=== PATIENT | female | born 1955 | race Caucasian/White ===

== ENCOUNTER 2024-09-21 07:52 | Outpatient (AMB) | payer BC, SELFPAY ==
--- NOTE | 2024-09-21 07:54 | MHC.OFFVIS ---
Vital Signs 09/21/24 07:55 Height 5 ft 2 in Weight 220 lb BMI 40.2 BP 130/72 Intake Visit Reasons: PMB Nitrate Operator Required: No Information Interpreted: non-clinical & clinical Template Reproduction Technician: Template Reproduction Technician Present (Regina RODRIGUEZ) Accompanied by: Self / Same As Patient Allergies morphine Allergy (Intermediate, Verified 09/21/24 07:57) Dizziness Post menopausal: Yes HPI Comments Details: Presenting complaining of multiple episodes of vaginal bleeding lasting 1 week each since 2020, timing after cortisone shot for bursitis of her left hip, no other associated symptoms Last co testing was many years ago [facility] Medical History Pinched nerve in neck Kidney stone Hyperlipidemia Bursitis HTN (hypertension) Surgical History Hx of eye surgery History of back surgery Total knee replacement status Hx of section Family History Mother HTN (hypertension) Breast cancer Maternal Grandmother Diabetes Social History Household Members: Spouse Housing: House Alcohol intake: never Patient Tobacco Use Status: Never used Tobacco Current occupational status: employed 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 Sexual orientation: Straight/Heterosexual Gender identity: Female Female Reproductive History Menstrual Menopause type: natural Total pregnancies: 4 Full term: 3 Number of Living Children: 3 Review of Systems Const All systems reviewed & are unremarkable except as noted in HPI and below Physical Exam Vital Signs: Last Vital Signs BP 130/72 09/21/24 07:55 BMI result Body Mass Index 40.2 General: Yes no CVA tenderness External Female Exam: normal external appearance and normal appearance of the urethra Speculum Exam - Vagina: normal appearance of the vagina, normal palpation, no lesions and no masses Speculum Exam - Cervix: normal appearance of the cervix, normal palpation, no lesions, no masses and nontender Bimanual exam- vagina & uterus: normal bimanual exam, normal palpation, uterine size normal, normal palpation, uterine shape normal, No Cervical tenderness present and non-tender Bimanual Exam- Adnexa, other: normal adnexae Back/Spine/Pelvis Back: no CVA tenderness Assessment & Plan Assessment & Plan (1) Postmenopausal bleeding: Code(s): N95.0 - Postmenopausal bleeding Category: Medical Plan: Discussed with the patient the differential diagnosis of post menopausal bleeding with normal pelvic exam including but not limited to, endometrial hyperplasia, cancer, polyps and other causes; co testing done, recommended ultrasound to measure the endometrial stripe; discussed with the patient that if the endometrial thickness is 4 mm or less the negative predictive value of endometrial pathology is 99%, otherwise If endometrial thickness is more than 4 mm will proceed with endometrial sampling versus hysteroscopy D&C polypectomy depending on the ultrasound findings. Instructed the patient to schedule an ultrasound with a follow-up appointment in 2 weeks. All questions answered, the patient verbalized understanding and agreed with the plan. This note was generated with a voice recognition program. Some errors may have been overlooked during the review of this note. Sometimes these errors may affect the content or meaning of a given sentence. Orders: Orders US pelvic and transvaginal Today N95.0 - Postmenopausal bleeding Coding Level of Care Code New Pt Level 3 (68491) Diagnoses Postmenopausal bleeding N95.0
[2024-09-21 07:55] VITALS: BP 130/72; BMI 40.2
--- OUTSIDE RECORDS SUMMARY | 2024-09-21 07:55 | XMS_ITS | Encounter Summary ---
[facility] Address [address] [place] [address] Care Team Providers Care Occ Therapy Asst Name Role Phone Jelani Riddle MD Primary Care Provider Unavail able Jason Vides MD Primary Care Provider [phone] Encounter Details Date Type Department Care Team Description 06/27/2016 Taping Machine Operator Report Medical Records [address] [place] [id number] Abstract, Provider Social History Tobacco Use Types Packs/Day Years Used Date Smoking Tobacco: Never Smokeless Tobacco: Never Alcohol Use Standard Drinks/Week Comments Yes 0 (1 standard drink = 0.6 oz pur e alcohol) 1-2 year/ mixed drink Sex Assigned at Date Recorded Not on file Job Start Date Occupation Industry Not on file Not on file Not on file documented as of this encounter Plan of Treatment Not on file documented as of this encounter Visit Diagnoses Not on filedocumented in this encounter Care Teams Occ Therapy Asst Relationship Specialty Start Date End Date Jelani Riddle MD PCP - General Internal Medicine 02/27/15 11/22/19 Jason Vides MD [address] [place] [address] [id number] PCP - General Internal Medicine 11/23/19 documented as of this encounter
--- OUTSIDE RECORDS SUMMARY | 2024-09-21 07:55 | XMS_ITS | Encounter Summary ---
[facility] Address [address] [place] [address] Care Team Providers Care Airport Operations Coordinator Name Role Phone Jason Vides MD Primary Care Provider [phone] Encounter Details Date Type Department Care Team Description 07/09/2020 Hospital Medical Records [address] [place] [address] Santino Donis Social History Tobacco Use Types Packs/Day Years [...] on filedocumented in this encounter Care Teams Airport Operations Coordinator Relationship Specialty Start Date End Date Jason Vides MD [address] [place] [address] PCP - General Internal Medicine 11/23/19 documented as of this encounter
--- OUTSIDE RECORDS SUMMARY | 2024-09-21 07:55 | XMS_ITS | Encounter Summary ---
Author [facility] Address [address] [place] [address] Care Team Providers Care Bioassayist Name Role Phone Jason Vides MD Primary Care Provider [phone] Encounter Details Date Type Department Care Team Description 01/24/2021 Pt. Non Urgent Medic al Question Adult Medicine [address] [id number] Munira Kennedy PA Social History Tobacco Use Types Packs/Day Years Used Date Smoking Tobacco: Never Smokeless Tobacco: Never Alcohol Use Standard Drinks/Week Comments Yes 0 (1 standard drink = 0.6 oz pur e alcohol) 1-2 year/ mixed drink Sex Assigned at Date Recorded Not on file Job Start Date Occupation Industry Not on file Not on file Not on file documented as of this encounter Miscellaneous Notes * Telephone Encounter - Sondra Boykin C.M.A. - 01/24/2021 1:31 PM EDTFrom: Adelaida Pearson Karen To: Vasu Figueroa Sent: 01/24/2021 12:06 PM EDT Subject: Prescription denied I need a prescription for Omeprazole refilled but was denied by the doctor's office is there any way this can be refilled over to [facility] my recent appointment for January 17 was canceled by Munira but I do need these refilled I have not been ableto reach the appointment kristi lagunas but will attempt to do one through this website please get back to me with information on the prescription thank you documented in this encounter Plan of Treatment Not on file documented as of this encounter Visit Diagnoses Not on filedocumented in this encounter Care Teams Bioassayist Relationship Specialty Start Date End Date Jason Vides MD [address] [place] [id number] PCP - General Internal Medicine 11/23/19 documented as of this encounter
--- OUTSIDE RECORDS SUMMARY | 2024-09-21 07:55 | XMS_ITS | Encounter Summary ---
Author Organization [facility] Address [address] [place] [address] Care Team Providers Care Blast Furnace Auxiliaries Supervisor Name Role Phone Jason Vides MD Primary Care Provider [phone] Encounter Details Date Type Department Care Team Description 01/10/2020 Pt. Non Urgent Medical Question Adult Medicine [address] [id number] Munira Kennedy PA Controlled type 2 diabetes mellitus without complication, without long-term current use of insulin (HCC) (Primary Dx); Mixed hyperlipidemia Social History Tobacco Use Types Packs/Day Years [...] encounter Miscellaneous Notes * Telephone Encounter - Heather Yu M.A. - 01/10/2020 5:12 PM EDTFrom: Adelaida Jones To: Munira Figueroa PA-C Sent: 01/10/2020 4:55 PM EDT Subject: Response to lab tests Phi Lombardo, the best phone number to reach me is my cell [phone]. 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 You could leave a message or call meafter 4:30 Thursday to Thursday, weekends anytime documented in this encounter Plan of Treatment Not on file documented as of this encounter Results * MICROALBUMIN/CREATININE, URINE (07/31/2020 10:58 AM EDT) Pathologist [facility] CREATININE, RANDOM URINE 201 mg/dL 07/31/2020 4:01 PM EDT [facility] MICROALBUMIN, RANDOM 13.4 0.0 - 29.0 mg/L 07/31/2020 4:07 PM EDT [facility] MICROALB/CRE RATIO RANDOM 6.6 0.0 - 30.0 mg/G 07/31/2020 4:07 PM EDT [facility] 07/31/2020 10:5 8 AM EDT 07/31/2020 10:59 AM EDT [facility] Performing Organization Address [facility]/ZIP Co de Phone Number [facility] [employer] * (ABNORMAL) HEMOGLOBIN A1C (07/31/2020 9:38 AM EDT) Pathologist [facility] GLYCATED HEMOGLOBIN A1C 6.9(H) <6.5 % 07/31/2020 6:10 PM EDT [facility] ESTIMATED AVERAGE GLUCOSE 151 mg/dL 07/31/2020 6:10 PM EDT [facility] 07/31/2020 9:38 AM EDT 07/31/2020 9:40 AM EDT Munira [facility] Performing Organization Address City/[facility]/ZIP Co de Phone Number [facility] * TRANSAMINASE (SGPT)(ALT) UV- (07/31/2020 9:38 AM EDT) Pathologist [facility] SGPT 19 10 - 60 U/L 07/31/2020 1:49 PM EDT [facility] 07/31/2020 9:38 AM EDT 07/31/2020 9:40 AM EDT Munira [facility] Performing Organization Address [facility]/ZIP Co de Phone Number [facility] * TRANSAMINASE (SGOT)(AST) UV- (07/31/2020 9:38 AM EDT) SGOT 17 10 - 42 U/L 07/31/2020 1:49 PM EDT [facility] 07/31/2020 9:38 AM EDT 07/31/2020 9:40 AM EDT [facility] * LIPID PROFILE (07/31/2020 9:38 AM EDT) Cholesterol 141 0 - 200 mg/dL 07/31/2020 1:49 PM EDT [facility] TRIGLYCERIDES 131 0 - 150 mg/dL 07/31/2020 1:49 PM EDT [facility] HDL CHOLESTEROL 45 >40 mg/dL 1:50 PM EDT [facility] LDL CALCULATED 70 0 - 100 mg/dL 07/31/2020 1:50 PM EDT [facility] TC-HDLC RATIO 3.1 0 - 4.4 mg/dL 07/31/2020 1:50 PM EDT [facility] 07/31/2020 9:38 AM EDT 07/31/2020 9:40 AM EDT [facility] documented in this encounter Visit Diagnoses Diagnosis Controlled type 2 diabetes mellitus without complication, without long-term current use of insulin (HCC)- Primary Mixed hyperlipidemia documented in this encounter Care Teams Blast Furnace Auxiliaries Supervisor Relationship Specialty Start Date End Date Jason Vides MD [address] [place] [id number] PCP - General Internal Medicine 11/23/19 documented as of this encounter
--- OUTSIDE RECORDS SUMMARY | 2024-09-21 07:55 | XMS_ITS | Encounter Summary ---
[facility] Address [address] [place] [address] Care Team Providers Care Manager Privacy Name Role Phone Jason Vides MD Primary Care Provider [phone] Reason for Visit * Reason Onset Date Comments BLOOD PRESSURE-SELF MEASURED 11/26/2021 [place] dings to Provider Encounter Details Date Type Department Care Team Description 11/26/2021 Pt. Non Urgent Medic al Question Adult Medicine [address] [address] Munira Kennedy PA Social History Tobacco Use [...] on file documented as of this encounter Progress Notes * Jackie Pitts M.A. - 11/27/2021 7:27 AM EDT Please see Visual[employer] message with BP Readings, thank you. documented in this encounter Miscellaneous Notes * Telephone Encounter - Jackie Pitts M.A. - 11/27/2021 7:26 AM EDTFrom: Adelaida Michel Karen To: Vasu Figueroa Sent: 11/26/2021 8:47 PM EDT Subject: Blood pressure readings In my last visit you cut my hydrochloride daily pill in half and asked me to record blood pressure readings. Just did 5 in a row. On 11/21/21. 153/78. On 11/22, 158/78. On 11/23, 176/83. On 11/24, 146/75. on 11/25, 161/75. And today 167/74. These seem high. documented in this encounter Plan of Treatment Not on file documented as of this encounter Visit Diagnoses Not on filedocumented in this encounter Care Teams Manager Privacy Relationship Specialty Start Date End Date Jason Vides MD [address] [place] [address] PCP - General Internal Medicine 11/23/19 documented as of this encounter
--- OUTSIDE RECORDS SUMMARY | 2024-09-21 07:55 | XMS_ITS | Encounter Summary ---
[facility] Address [address] [place] [address] Care Team Providers Care Professor Of Industrial Technology Name Role Phone Matthew Pineda MD Primary Care Provider Augusto Ruiz MD Primary Care Provider Unavail able Jelani Riddle MD Primary Care Provider Unavail able Jason Vides MD Primary Care Provider [phone] Encounter Details Date Type Department Care Team Description 02/14/2014 Release of Information Medical Records [address] [place] [id number] Abstract, Provider Social History Tobacco Use Types [...] on filedocumented in this encounter Care Teams Professor Of Industrial Technology Relationship Specialty Start Date End Date Matthew Pineda MD PCP - General Internal Medicine 04/23/11 Augusto Osorio MD PCP - General Internal Medicine 07/06/14 02/26/15 Jelani Riddle MD PCP - General Internal Medicine 02/27/15 11/22/19 Jason Vides MD [address] [place] [address] [phone] PCP - General Internal Medicine 11/23/19 documented as of this encounter
--- OUTSIDE RECORDS SUMMARY | 2024-09-21 07:55 | XMS_ITS | Encounter Summary ---
Author Organization [facility] Address [address] [place] [address] Care Team Providers Care Oil Well Driller Name Role Phone Jelani Riddle MD Primary Care Provider Unavail able Jason Vides MD Primary Care Provider [phone] Encounter Details Date Type Department Care Team Description 11/25/2018 Hospital Medical Records [address] [place] [id number] Joao Herrera Social History Tobacco Use Types Packs/Day Years [...] on filedocumented in this encounter Care Teams Oil Well Driller Relationship Specialty Start Date End Date Jelani Riddle MD PCP - General Internal Medicine 02/27/15 11/22/19 Jason Vides MD [address] [place] [address] [id number] PCP - General Internal Medicine 11/23/19 documented as of this encounter
--- OUTSIDE RECORDS SUMMARY | 2024-09-21 07:55 | XMS_ITS | Encounter Summary ---
[facility] Address [address] [place] [address] Care Team Providers Care Industrial Health And Safety Professor Name Role Phone Augusto Osorio MD Primary Care Provider Unavail Jelani Basilio MD Primary Care Provider Unavail able Jason Vides MD Primary Care Provider [phone] Encounter Details Date Type Department Care Team Description 10/24/2014 [place] Report Medical Records [address] [place] [address] [facility] Social History Tobacco Use Types Packs/Day Years [...] on filedocumented in this encounter Care Teams Industrial Health And Safety Professor Relationship Specialty Start Date End Date Augusto Osorio MD PCP - General Internal Medicine 07/06/14 02/26/15 Jelani Riddle MD PCP - General Internal Medicine 02/27/15 11/22/19 Jason Vides MD [address] [place] [address] PCP - General Internal Medicine 11/23/19 documented as of this encounter
--- OUTSIDE RECORDS SUMMARY | 2024-09-21 07:55 | XMS_ITS | Encounter Summary ---
[facility] Address [address] [place] [address] Care Team Providers Care Manager General Name Role Phone Jason Vides MD Primary Care Provider [phone] Encounter Details Date Type Department Care Team Description 06/27/2021 Telephone Gastroenterology - [place] [address] [facility] [address] [place] [address] Richar Giron MD [address] [place] [address] [phone] Social History Tobacco Use Types Packs/Day Years Used Date Smoking Tobacco: Never Smokeless Tobacco: Never Alcohol Use Standard Drinks/Week Comments Yes 0 (1 standard drink = 0.6 oz pur e alcohol) 1-2 year/ mixed drink Sex Assigned at Date Recorded Not on file Job Start Date Occupation Industry Not on file Not on file Not on file COVID-19 Exposure Response Date Recorded In the last month, have you been in contact with someone who was confirmed or suspected to have Coronavirus / COVID-19? No / Unsure 06/26/2021 9:56 AM EST documented as of this encounter Miscellaneous Notes * Telephone Encounter - Yo Doe - 06/27/2021 2:02 PM EST Pre-auth needed Patient is scheduled for an Colonoscopy on 10/18/21 Diagnosis HX of Polyps Patients [place]: [place] Appointment is with Marquise Giron MD Code to process pre-auth for: [id number] Location of procedure: [facility] documented in this encounter Plan of Treatment Not on file documented as of this encounter Visit Diagnoses Not on filedocumented in this encounter Care Teams Manager General Relationship Specialty Start Date End Date Jason Vides MD [address] [place] [phone] PCP - General Internal Medicine 11/23/19 documented as of this encounter
--- OUTSIDE RECORDS SUMMARY | 2024-09-21 07:55 | XMS_ITS | Encounter Summary ---
[facility] Address [address] [place] [address] Care Team Providers Care Marketing Communications Associate Name Role Phone Jelani Riddle MD Primary Care Provider Unavail able Jason Vides MD Primary Care Provider [phone] Encounter Details Date Type Department Care Team Description 07/21/2018 Blend Plant Operator Report Medical Records [address] [place] [address] [facility] Social History Tobacco Use Types Packs/Day Years [...] on filedocumented in this encounter Care Teams Marketing Communications Associate Relationship Specialty Start Date End Date Jelani Riddle MD PCP - General Internal Medicine 02/27/15 11/22/19 Jason Vides MD [address] [place] [address] [phone] PCP - General Internal Medicine 11/23/19 documented as of this encounter
--- OUTSIDE RECORDS SUMMARY | 2024-09-21 07:55 | XMS_ITS | Encounter Summary ---
[facility] Address [address] [place] [address] Care Team Providers Care Laser Beam Trim Operator Name Role Phone Yung Spaulding MD Primary Care Provider [phone] Matthew Devine MD Primary Care Provider Christina Augusto Baptiste MD Primary Care Provider Unavail Jelani Basilio MD Primary Care Provider Unavail Jason Skinner MD Primary Care Provider [phone] Reason for Visit * Reason Comments E-prescribe Rx Request Encounter Details Date Type Department Care Team Description 04/20/2011 Refill Adult Medicine [address] [id number] Yung Spaulding MD [address] [place] [address] [phone] E-prescribe Rx Request Social History Tobacco Use Types Packs/Day Years Used Date Smoking Tobacco: Never Alcohol Use Standard Drinks/Week Comments No 0 (1 standard drink = 0.6 oz pur e alcohol) Sex Assigned at Date Recorded Not on file Job Start Date Occupation Industry Not on file Not on file Not on file documented as of this encounter Miscellaneous Notes * Telephone Encounter - Naomi Thakur R.N. - 04/25/2011 12:49 PM EST Several calls to pt with no response, encounter closed with no pt contact. * Telephone Encounter - Floresita May - 04/23/2011 2:31 PM EST PT HAS APPT ON 07/16/[address] DEVINE. * Telephone Encounter - Sil Jang M.A. - 04/23/2011 8:58 AM EST Please triage for antibiotics * Telephone Encounter - Shiela Goodman - 04/22/2011 11:18 AM EST Message left for patient to call the office. * Telephone Encounter - Sil Jang M.A. - 04/21/2011 3:27 PM EST Component Value Date NA 138 06/08/2010 K 3.9 06/08/2010 CO2 26.8 06/08/2010 CL 103 06/08/2010 BUN 13 06/08/2010 CREAT 0.8 06/08/2010 GLU 93 06/08/2010 CA 8.7 06/08/2010 GFR > 60 06/08/2010 PATIENT NEEDS A NEW PCP ?? * Telephone Encounter - Sundeep Roque - 04/20/2011 4:03 PM EST WHEN WAS THE PATIENT'S LAST APPOINTMENT IN ADULT MEDICINE? 10/23/10 WHEN WAS THE LAST TIME THE PATIENT SAW THEIR PCP? 04/05/10 Does patient have an upcoming appointment? No-unable to reach left voicemaill to call for appointment due to refill request. Appt due msg left to call and book an appointment and to select a new pcp (THE MEDICATION REQUESTED IS ON THE MED LIST ABOVE) All of the medications requested were on the CURRENT MEDS list Did you check the Pharmacy information above?: YES Is this a mail order prescription request? NO Indicate how soon the patient needs the script: OK FOR NEXT DAY Patient would like script to be: FAXED TO PHARMACY Is the doctor here today?: NO Can the message wait until the doctor returns?: YES Patients current insurance carrier is: [place]or: [place] POS Plan: FEP BASIC $25/$35 [place] Product Type: PPO [id number] documented in this encounter Plan of Treatment Not on file documented as of this encounter Visit Diagnoses Not on filedocumented in this encounter Care Teams Laser Beam Trim Operator Relationship Specialty Start Date End Date Yung Spaulding MD [address] [place] [address] PCP - General 04/17/1991 04/22/11 Matthew Devine MD [address] [place] [address] PCP - General Internal Medicine 04/23/11 05/17/14 Augusto Osorio MD [address] [place] [address] PCP - General Internal Medicine 07/06/14 02/26/15 Jelani Riddle MD [address] [place] [address] PCP - General Internal Medicine 02/27/15 11/22/19 Jason Vides MD [address] [place] [address] PCP - General Internal Medicine 11/23/19 documented as of this encounter
--- OUTSIDE RECORDS SUMMARY | 2024-09-21 07:55 | XMS_ITS | Encounter Summary ---
Author [facility] Address [address] [place] [address] Care Team Providers Care Sugar Cane Planter Machine Operator Name Role Phone Jelani Riddle MD Primary Care Provider Unavail able Jason Vides MD Primary Care Provider [phone] Encounter Details Date Type Department Care Team Description 01/14/2019 Hospital Medical Records [address] [place] [address] Joao Herrera Social History Tobacco Use Types [...] on filedocumented in this encounter Care Teams Sugar Cane Planter Machine Operator Relationship Specialty Start Date End Date Jelani Riddle MD PCP - General Internal Medicine 02/27/15 11/22/19 Jason Vides MD [address] [place] [address] [id number] PCP - General Internal Medicine 11/23/19 documented as of this encounter
--- OUTSIDE RECORDS SUMMARY | 2024-09-21 07:55 | XMS_ITS | Encounter Summary ---
Author Organization [facility] Address [address] [place] [address] Care Team Providers Care Nail Professional Name Role Phone Jason Vides MD Primary Care Provider [phone] Encounter Details Date Type Department Care Team Description 07/23/2022 Orders Only Adult Medicine [facility] [address] [place], [place] [phone] Claire Gomez PA-C [address] [place], [place] [phone] Essential hypertension, benign; Type 2 diabetes mellitus with stage 3a chronic kidney disease, without long-term current use of insulin (HCC) Social History Tobacco Use Types Packs/Day Years [...] on file documented as of this encounter Procedures Procedure Name Priority Date/Time Associated Diagnosis Comments MICROALBUMIN/CREATININE, URINE Routine 07/22/2022 Type 2 diabetes mellitus with stage 3a chronic kidney disease, without long-term current use of insulin (HCC) HEMOGLOBIN A1C Routine 07/22/2022 Type 2 diabetes mellitus with stage 3a chronic kidney disease, without long-term current use of insulin (HCC) CHG BLOOD COUNT COMPLETE AUTO&AUTO DIFRNTL WBC Routine 07/22/2022 Essential hypertension, benign CHG COMPREHENSIVE METABOLIC PANEL Routine 07/22/2022 Essential hypertension, benign documented in this encounter Results * MICROALBUMIN/CREATININE, URINE (07/22/2022) 07/22/2022 Claire SHIELDS-C LAB Performing Organization Address [facility]/ZIP Co de Phone Number Resolver * HEMOGLOBIN A1C (07/22/2022) 07/22/2022 Claire SHIELDS-[facility] LAB Performing Organization Address [facility] Co de Phone Number Resolver * COMPREHENSIVE METABOLIC PANEL (07/22/2022) 07/22/2022 Claire [facility] LAB Resolver * CBC (AUTO DIFF PLATELET) (07/22/2022) 07/22/2022 Claire [facility]EL[facility] LAB Performing Organization Address [facility] Co de Phone Number Resolver documented in this encounter Visit Diagnoses Diagnosis Essential hypertension, benign Type 2 diabetes mellitus with stage 3a chronic kidney disease, without long-term current use of insulin (HCC) documented in this encounter Care Teams Nail Professional Relationship Specialty Start Date End Date Jason Vides MD [address] [place] [id number] PCP - General Internal Medicine 11/23/19 documented as of this encounter
--- OUTSIDE RECORDS SUMMARY | 2024-09-21 07:55 | XMS_ITS | Encounter Summary ---
[facility] [address] [place] [address] Care Team Providers Care Director Experimental Medicine Name Role Phone Jelani Riddle MD Primary Care Provider Unavail able Jason Vidse MD Primary Care Provider [phone] Encounter Details Date Type Department Care Team Description 04/08/2016 Medical Coding Manager Report Medical Records [address] [place] [address] Jamie Shaikh Social History Tobacco Use Types Packs/Day Years [...] on filedocumented in this encounter Care Teams Director Experimental Medicine Relationship Specialty Start Date End Date Jelani Riddle MD PCP - General Internal Medicine 02/27/15 11/22/19 Jason Vides MD [address] [place] [address] [id number] PCP - General Internal Medicine 11/23/19 documented as of this encounter
--- OUTSIDE RECORDS SUMMARY | 2024-09-21 07:55 | XMS_ITS | Encounter Summary ---
[facility] [address] [place] [address] Care Team Providers Care Ammonia Technician Name Role Phone Jelani Riddle MD Primary Care Provider Unavail able Jason Vides MD Primary Care Provider [phone] Encounter Details Date Type Department Care Team Description 09/05/2016 Senior Java Software Engineer Report Medical Records [address] [place] [address] Dewayne Sandhu Social History Tobacco Use Types Packs/Day Years [...] on filedocumented in this encounter Care Teams Ammonia Technician Relationship Specialty Start Date End Date Jelani Riddle MD PCP - General Internal Medicine 02/27/15 11/22/19 Jason Vides MD [address] [place] [address] [id number] PCP - General Internal Medicine 11/23/19 documented as of this encounter
--- OUTSIDE RECORDS SUMMARY | 2024-09-21 07:55 | XMS_ITS | Encounter Summary ---
[facility] [address] [place] [address] Care Team Providers Care Dry Talc Racker Name Role Phone Jason Vides MD Primary Care Provider [phone] Reason for Visit * Reason Onset Date Comments Prior Authorization 09/05/2021 colonoscopy Encounter Details Date Type Department Care Team Description 09/05/2021 Telephone Adult Medicine [facility] [address] [place], [place] [phone] Richar Giron MD [address] [place] [address] [phone] Prior Authorization (colonoscopy) Social History Tobacco Use Types Packs/Day Years [...] encounter Miscellaneous Notes * Telephone Encounter - Lillie Nicholas - 09/05/2021 9:43 AM EDT [place] cross federal plan - no auth required * Telephone Encounter - Lillie Nicholas - 09/05/2021 9:19 AM EDT Images from the original note were not included. [facility] External Surgeon [place] Pre-Op Pool Pre-auth needed ? Patient is scheduled for an Colonoscopy on 10/18/21 ?? Diagnosis HX of Polyps ?? [place]: [place] ?? Appointment is with Marquise Giron MD ?? Code to process pre-auth for: [id number] ?? Location of procedure: [facility] documented in this encounter Plan of Treatment Not on file documented as of this encounter Visit Diagnoses Not on filedocumented in this encounter Care Teams Dry Talc Racker Relationship Specialty Start Date End Date Jason Vides MD [address] [place] [id number] PCP - General Internal Medicine 11/23/19 documented as of this encounter
--- OUTSIDE RECORDS SUMMARY | 2024-09-21 07:55 | XMS_ITS | Encounter Summary ---
Author [facility] Address [address] [place] [address] Care Team Providers Care Drawbench Operator Name Role Phone Jason Vides MD Primary Care Provider [phone] Encounter Details Date Type Department Care Team Description 05/25/2020 Refrigerating Engineer Head Report Medical Records [address] [place] [address] Santino Donis Social History Tobacco Use Types [...] on filedocumented in this encounter Care Teams Drawbench Operator Relationship Specialty Start Date End Date Jason Vides MD [address] [place] [address] PCP - General Internal Medicine 11/23/19 documented as of this encounter
== END 2024-09-21 08:46 | disposition home or self-care (01) ==
LOC: HO.HWS 07:53
PROVIDERS: Visit Provider Obstetrics & Gynecology
DX: N95.0 Postmenopausal bleeding (principal)
CPT/HCPCS: 99203

== ENCOUNTER 2024-09-21 07:52 | Outpatient (REF) | payer BC, SELFPAY ==
--- OUTSIDE RECORDS SUMMARY | 2024-09-21 10:30 | XMS_ITS | Encounter Summary ---
[facility] Address [address] [place] [address] Care Team Providers Care Dry Kiln Operator Helper Name Role Phone Jelani Riddle MD Primary Care Provider Unavail able Jason Vides MD Primary Care Provider [phone] Encounter Details Date Type Department Care Team Description 06/27/2016 Clinical Rehabilitation Specialist Report Medical Records [address] [place] [address] Abstract, Provider Social History Tobacco Use Types [...] filedocumented in this encounter Care Teams Dry Kiln Operator Helper Relationship Specialty Start Date End Date Jelani Riddle MD PCP - General Internal Medicine 02/27/15 11/22/19 Jason Vides MD [address] [place] [address] [phone] PCP - General Internal Medicine 11/23/19 documented as of this encounter
--- OUTSIDE RECORDS SUMMARY | 2024-09-21 10:30 | XMS_ITS | Encounter Summary ---
Author [facility] Address [address] [place] [address] Care Team Providers Care Revenue Accounting Manager Name Role Phone Yung Spaulding MD Primary Care Provider [phone] Matthew Devine MD Primary Care Provider Christina Augusto Baptiste MD Primary Care Provider Unavail Jelani Basilio MD Primary Care Provider Unavail Jason Skinner MD Primary Care Provider [phone] Reason for Visit * Reason Comments E-prescribe Rx Request Encounter Details Date Type Department Care Team Description 04/20/2011 Refill Adult Medicine [address] [phone] Yung Spaulding MD [address] [place] [address] [phone] E-prescribe Rx Request Social History Tobacco Use [...] FEP BASIC $25/$35 [place] Product Type: PPO [id number] documented in this encounter Plan of Treatment Not on file documented as of this encounter Visit Diagnoses Not on filedocumented in this encounter Care Teams Revenue Accounting Manager Relationship Specialty Start Date End Date Yung Spaulding MD [address] [place] [address] PCP - General 04/17/1991 04/22/11 Matthew Devine MD [address] [place] [address] PCP - General Internal Medicine 04/23/11 05/17/14 Augusto Osorio MD [address] [place] [address] PCP - General Internal Medicine 07/06/14 02/26/15 Jelani Riddle MD [address] [place] [address] PCP - General Internal Medicine 02/27/15 11/22/19 Jason Vides MD [address] [place] [address] PCP - General Internal Medicine 11/23/19 documented as of this encounter
--- OUTSIDE RECORDS SUMMARY | 2024-09-21 10:30 | XMS_ITS | Encounter Summary ---
[facility] Address [address] [place] [address] Care Team Providers Care Hr Director Name Role Phone Jelani Riddle MD Primary Care Provider Unavail able Jason Vides MD Primary Care Provider [phone] Encounter Details Date Type Department Care Team Description 04/08/2016 Production Administrative Assistant Report Medical Records [address] [place] [address] Jamie Shaikh Social History Tobacco Use Types [...] on filedocumented in this encounter Care Teams Hr Director Relationship Specialty Start Date End Date Jelani Riddle MD PCP - General Internal Medicine 02/27/15 11/22/19 Jason Vides MD [address] [place] [address] [id number] PCP - General Internal Medicine 11/23/19 documented as of this encounter
--- OUTSIDE RECORDS SUMMARY | 2024-09-21 10:30 | XMS_ITS | Encounter Summary ---
[facility] Address [address] [place] [address] Care Team Providers Care Carburetor Repairer Name Role Phone Jelani Riddle MD Primary Care Provider Unavail able Jason Vides MD Primary Care Provider [phone] Encounter Details Date Type Department Care Team Description 01/14/2019 Hospital Medical Records [address] [place] [address] Joao Herrera Social History Tobacco Use Types [...] on filedocumented in this encounter Care Teams Carburetor Repairer Relationship Specialty Start Date End Date Jelani Riddle MD PCP - General Internal Medicine 02/27/15 11/22/19 Jason Vides MD [address] [place] [address] [phone] PCP - General Internal Medicine 11/23/19 documented as of this encounter
--- OUTSIDE RECORDS SUMMARY | 2024-09-21 10:30 | XMS_ITS | Encounter Summary ---
[facility] Address [address] [place] [address] Care Team Providers Care Coupon Clerk Name Role Phone Jelani Riddle MD Primary Care Provider Unavail able Jason Vides MD Primary Care Provider [phone] Encounter Details Date Type Department Care Team Description 11/25/2018 Hospital Medical Records [address] [place] [address] Joao Herrera Social History Tobacco Use Types [...] on filedocumented in this encounter Care Teams Coupon Clerk Relationship Specialty Start Date End Date Jelani Riddle MD PCP - General Internal Medicine 02/27/15 11/22/19 Jason Vides MD [address] [place] [address] [phone] PCP - General Internal Medicine 11/23/19 documented as of this encounter
--- OUTSIDE RECORDS SUMMARY | 2024-09-21 10:30 | XMS_ITS | Encounter Summary ---
[facility] Address [address] [place] [address] Care Team Providers Care Mounter Saxophones Name Role Phone Jason Vides MD Primary Care Provider [phone] Encounter Details Date Type Department Care Team Description 05/08/2020 Upholstery Cleaner Report Medical Records [address] [place] [address] Tj Sawant PA-C [address] [place] [phone] Social History Tobacco Use Types Packs/Day Years [...] on filedocumented in this encounter Care Teams Mounter Saxophones Relationship Specialty Start Date End Date Jason Vides MD [address] [place], [place] [phone] PCP - General Internal Medicine 11/23/19 documented as of this encounter
--- OUTSIDE RECORDS SUMMARY | 2024-09-21 10:30 | XMS_ITS | Encounter Summary ---
Author Organization [facility] Address [address] [place] [address] Care Team Providers Care Disintegrator Name Role Phone Jason Vides MD Primary Care Provider [phone] Encounter Details Date Type Department Care Team Description 01/10/2020 Pt. Non Urgent Medical Question Adult Medicine [address] [phone] Munira Kennedy PA Controlled type 2 diabetes [...] number to reach me is my cell [phone]. 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 You could leave a message or call meafter 4:30 Thursday to Thursday, weekends anytime documented in this encounter Plan of Treatment Not on file documented as of this encounter Results * MICROALBUMIN/CREATININE, URINE (07/31/2020 10:58 AM EDT) Pathologist [facility] CREATININE, RANDOM URINE 201 mg/dL 07/31/2020 4:01 PM EDT [facility] MICROALBUMIN, RANDOM 13.4 0.0 - 29.0 mg/L 07/31/2020 4:07 PM EDT [facility] MICROALB/CRE RATIO RANDOM 6.6 0.0 - 30.0 mg/G 07/31/2020 4:07 PM EDT [facility] 07/31/2020 10:5 8 AM EDT 07/31/2020 10:59 AM EDT Munira [facility] Performing Organization Address [facility]/ZIP Co de Phone Number [facility] [employer] * (ABNORMAL) HEMOGLOBIN A1C (07/31/2020 9:38 AM EDT) Pathologist [facility] GLYCATED HEMOGLOBIN A1C 6.9(H) <6.5 % 07/31/2020 6:10 PM EDT [facility] ESTIMATED AVERAGE GLUCOSE 151 mg/dL 07/31/2020 6:10 PM EDT [facility] 07/31/2020 9:38 AM EDT 07/31/2020 9:40 AM EDT Munira [facility] Performing Organization Address City/[facility]/ZIP Co de Phone Number [email or web address] * TRANSAMINASE (SGPT)(ALT) UV- (07/31/2020 9:38 AM EDT) Pathologist [facility] SGPT 19 10 - 60 U/L 07/31/2020 1:49 PM EDT [facility] 07/31/2020 9:38 AM EDT 07/31/2020 9:40 AM EDT Munira [facility] Performing Organization Address City/[facility]/ZIP Co de Phone Number [email or web address] * TRANSAMINASE (SGOT)(AST) UV- (07/31/2020 9:38 AM [...] hyperlipidemia documented in this encounter Care Teams Disintegrator Relationship Specialty Start Date End Date Jason Vides MD [address] [place] [id number] PCP - General Internal Medicine 11/23/19 documented as of this encounter
--- OUTSIDE RECORDS SUMMARY | 2024-09-21 10:30 | XMS_ITS | Encounter Summary ---
Author Organization [facility] Address [address] [place] [address] Care Team Providers Care Foil Spinner Name Role Phone Jason Vides MD Primary Care Provider [phone] Encounter Details Date Type Department Care Team Description 10/22/2021 Orders Only Medical Records [address] [place] [address] Richar Giron MD [address] [place], [place] [phone] Social History Tobacco Use Types Packs/Day Years [...] Exposure Response Date Recorded In the last 10 days, have yo u been in contact with someone who was confirmed or suspected to have Coronavirus/COVID-19? No / Unsure 10/09/2021 9:48 AM EDT documented as of this encounter Progress Notes * Adrienne Giron MD - 10/28/2021 11:05 AM EDT Dear Adelaida,The polyp(s) that were removed during your colonoscopy were precancerous, but benign. Fortunately, we removed them and therefore, they will not cause any more problems in the future. Basedon the number, the size, and the features of the polyp(s) removed, I recommend a follow-up colonoscopy in 3 years. Before, the 3 years are due, we will send you a reminder in the mail asking you to contact our office to have the colonoscopy scheduled. I would like to personally thank you for allowing us to take care of you. Please don't hesitate to call us for any questions or concerns. Regards, Marquise Giron MD Board Certified Gastroenterology and Internal Medicine Transplant Hepatology [facility] documented in this encounter Plan of Treatment Not on file documented as of this encounter Procedures Procedure Name Priority Date/Time Associated Diagnosis Comments OUTSIDE PATHOLOGY Routine 10/18/2021 documented in this encounter Results * OUTSIDE PATHOLOGY (10/18/2021) Richar Giron MD OUTSIDE LAB documented in this encounter Visit Diagnoses Not on filedocumented in this encounter Care Teams Foil Spinner Relationship Specialty Start Date End Date Jason Vides MD [address] [place] [id number] PCP - General Internal Medicine 11/23/19 documented as of this encounter
--- OUTSIDE RECORDS SUMMARY | 2024-09-21 10:30 | XMS_ITS | Encounter Summary ---
[facility] Address [address] [place] [address] Care Team Providers Care Field Secretary Name Role Phone Matthew Pineda MD Primary Care Provider Augusto Ruiz MD Primary Care Provider Unavail able Jelani Riddle MD Primary Care Provider Unavail able Jason Vides MD Primary Care Provider [phone] Encounter Details Date Type Department Care Team Description 02/13/2014 [employer] Report Medical Records [address] [place] [address] Ayanna Cassidy Social History Tobacco Use Types Packs/Day Years [...] on filedocumented in this encounter Care Teams Field Secretary Relationship Specialty Start Date End Date Matthew Pineda MD PCP - General Internal Medicine 04/23/11 Augusto Osorio MD PCP - General Internal Medicine 07/06/14 02/26/15 Jelani Riddle MD PCP - General Internal Medicine 02/27/15 11/22/19 Jason Vides MD [address] [place] [address] [phone] PCP - General Internal Medicine 11/23/19 documented as of this encounter
--- OUTSIDE RECORDS SUMMARY | 2024-09-21 10:30 | XMS_ITS | Encounter Summary ---
[facility] Address [address] [place] [address] Care Team Providers Care Floor Tiling Professional Name Role Phone Jelani Riddle MD Primary Care Provider Unavail able Jason Vides MD Primary Care Provider [phone] Encounter Details Date Type Department Care Team Description 01/13/2019 Hospital Medical Records [address] [place] [address] Hannah Oliver Social History Tobacco Use Types Packs/Day Years [...] on filedocumented in this encounter Care Teams Floor Tiling Professional Relationship Specialty Start Date End Date Jelani Riddle MD PCP - General Internal Medicine 02/27/15 11/22/19 Jason Vides MD [address] [place] [address] [phone] PCP - General Internal Medicine 11/23/19 documented as of this encounter
--- OUTSIDE RECORDS SUMMARY | 2024-09-21 10:31 | XMS_ITS | Encounter Summary ---
[facility] Address [address] [place] [address] Care Team Providers Care Shoe Fitter Name Role Phone Jelani Riddle MD Primary Care Provider Unavail able Jason Vides MD Primary Care Provider [phone] Encounter Details Date Type Department Care Team Description 01/18/2016 Internal Controls Analyst Report Medical Records [address] [place] [address] Norma Montes Social History Tobacco Use Types Packs/Day Years [...] on filedocumented in this encounter Care Teams Shoe Fitter Relationship Specialty Start Date End Date Jelani Riddle MD PCP - General Internal Medicine 02/27/15 11/22/19 Jason Vides MD [address] [place] [address] [phone] PCP - General Internal Medicine 11/23/19 documented as of this encounter
--- OUTSIDE RECORDS SUMMARY | 2024-09-21 10:31 | XMS_ITS | Clinical Summary ---
Author Organization [facility] Address [address] [place] [address] Care Team Providers Care Vp Information Technology Name Role Phone Jason Vides MD Primary Care Provider [phone] Allergies Active Allergy Reactions Severity Noted Date Comments Morphine Itching/Pruritus,Abhi sea and Vomiting Medium 11/27/2016 Pt states that when she had c sections in 1988 and 1993 she received duramorhp. She then had vomiting and an itchy face Metoprolol Hives/Urticaria 02/04/2017 Medications Medication Sig Dispensed Refills Start Date End Date Status Blood Glucose Monitoring Suppl (FREESTYLE LITE) Device Test daily 1 Device 0 07/17/2020 Active Glucose Blood (FREESTYLE LITE) Strip Test daily 100 Strip 0 07/17/2020 Active FreeStyle Lancets Misc Test daily 100 Each 0 07/17/2020 Active ALBUTEROL SULFATE (ProAir HFA) 108 (90 Base) MCG/ACT Aero Soln Inhale 2 Puffs into the lungs 4 times daily as needed for Cough or Wheezing. 1 Inhaler 0 08/30/2020 Active potassium chloride SA (K-DUR,KLOR-CON) 20 MEQ tablet Take 1 Tablet by mouth daily for 180 days. 30 Tablet 5 03/03/2023 Active atenolol (TENORMIN) 25 MG tablet Take 1 Tablet by mouth daily. 90 Tablet 1 09/15/2023 Active atorvastatin (LIPITOR) 20 MG tablet Take 1 Tablet by mouth at bedtime. 90 Tablet 1 09/15/2023 Active omeprazole (PRILOSEC) 20 MG capsule Take 1 Capsule by mouth daily. 90 Capsule 1 09/15/2023 Active lisinopril (PRINIVIL,ZESTRIL) 5 MG tablet Take 1 Tablet by mouth daily. 90 Tablet 1 10/15/2023 Active nystatin (MYCOSTATIN) powder Apply to affected skin as needed. 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 01/09/2020 Morbid obesity with BMI of 40.0-44.9, ad ult 10/30/2016 Asthma in adult 05/03/2015 Hyperlipidemia 05/02/2015 Osteoarthritis of both knees 05/02/2015 Overview: Cortisol injections at [facility] Calculus of kidney 06/09/2010 Overview: Abnormal cytology Colon polyps 10/13/2008 Overview: 10/13/08: 2-cm tubulovillous adenoma 10/24/11: Negative CN 11/27/16: 1 inflammatory polyp 10/18/21: 3 tubular adenomas - repeat CN in 3 years Essential hypertension, benign 6 Resolved Problems Problem Noted Date Resolved Date History of COVID-19 06/26/2021 03/06/2022 Overview: DX: 07/2020 Obese 10/23/2010 03/06/2022 Recurrent Streptococcal pharyngitis 08/30/2010 06/24/2019 Overview: 07/06/10, 07/24/10, 08/15/10 Immunizations Name Administration Dates Next Due COVID-19 (Pfizer) 05/04/2021,09/06/2020,08/17/19 21 Influenza (> 6 Months) 03/04/2020,02/22/2016,07/2009 Influenza Flu (PT Reported) 02/24/2018 Influenza Vaccine-preservati ve Free-quadrivalent 4 Years 03/06/2022,06/26/2021,05/29/2019 Influenza vaccine high dose age 65 and over 02/15 Pneumoccoccal(Adult) Polysaccharide PPSV23 06/04 Tdap 01/03/2020,08/29/2009 Family History Medical History Relation Name Comments CABG Father Hypertension Father CA Breast Mother Cancer of the Breast Mother dx [address] ca 63, also at 63 Macular Degeneration Mother CA Colon Negative Hx CA Ovarian Negative Hx Uterine Cancer Negative Hx Relation Name Status Comments Father (Age 71) cad, htn, hyperlipidemia Mother (Age 63) breast can cer Social History Tobacco Use Types Packs/Day Years Used Date Smoking Tobacco: Never Smokeless Tobacco: Never Tobacco Cessation:Counseling Given: Not Answered Alcohol Use Standard Drinks/Week Comments Yes 0 (1 standard drink = 0.6 oz pur e alcohol) 1-2 year/ mixed drink Sex Assigned at Date Recorded Not on file Job Start Date Occupation Industry Not on file Not on file Not on file Last Filed Vital Signs Vital Sign Reading Time Taken Comments Blood Pressure 126/68 11/18/2023 5:22 PM EDT Pulse 82 10/15/2023 2:48 PM EDT Temperature 36.7 ??C (98 ??F) 10/15/2023 2:48 PM EDT Respiratory Rate 16 09/15/2023 12:5 8 PM EDT Oxygen Saturation 98% 11/27/2016 10: 25 AM EDT Inhaled Oxygen Concentration - - Weight 102.4 kg (225 lb 11.2 oz) 10/15/2023 2:48 PM EDT Height 157.5 cm (5' 2 ) 10/15/2023 2:48 PM EDT Body Mass Index 41.28 10/15/2023 2:48 PM EDT Plan of Treatment Health Maintenance Due Date Last Done Comments SHINGLES VACCINE (1 of 2) 2007 DIABETES: ANNUAL EYE EXAM 12/06/20102009, 11/15/2008, 11/09/2007 BONE DENSITY SCREENING 2022 PNEUMOCOCCAL VACCINE (2 - PCV) 2022 06/04/2018 DIABETES: ANNUAL FOOT EXAM 06/26/2022 06/26/2021 DIABETES: BLOOD SUGAR CONTRO L TEST (HGBA1C) 12/15/2023 09/15/2023, 03/02/2023, 07/22/2022, Additional history exists Covid-19 Vaccine (2022-06 4 season) 2024 05/04/2021, 09/06/2020, 08/16/2020 BMI CHECK/ADVISE 05/18/2024 08/04/2022, , 10/09/2021, Additional history exists DIABETES/HEART DISEASE: LAMAR MCFADDEN CHOLESTEROL (LDL) 09/14/2024 09/15/2023, 03/02/2023, 06/26/2021, Additional history exists DIABETES: ANNUAL URINE PROTE IN TEST (MICROALBUMIN) 09/14/2024 09/15/2023, 03/02/2023, 07/22/2022, Additional history exists COLON CANCER SCREENING 10/18/2024 , 11/27/2016, 10/24/2011, Additional history exists INFLUENZA (Season Ended) 2025 023, 03/06/2022, 06/26/2021, Additional history exists MAMMOGRAM 02/12/2025 02/13/2024, 12/17, 01/24/2022, Additional history exists DTAP/TDAP/TD (3 - Td or Tdap) 01/02/2030 01/03/2020, 08/29/2009 HEPATITIS C SCREENING Completed 09/15/2023 , 05/03/2015 (Refused) [address] [facility] [address] Adelaida Jones [employer] Self 1955 [address] [place] [address] Care Teams Vp Information Technology Relationship Specialty Start Date End Date Jason Vides MD [address] [place] [address] PCP - General Internal Medicine 11/23/19
--- OUTSIDE RECORDS SUMMARY | 2024-09-21 10:31 | XMS_ITS | Encounter Summary ---
Author Organization [facility] Address [address] [place] [address] Care Team Providers Care Hand Sole Sewer Name Role Phone Jason Vides MD Primary Care Provider Encounter Details Date Type Department Care Team Description 06/27/2021 Telephone Gastroenterology - [place] [address] [facility] [address] [place] [address] Richar Giron MD [address] [place] [address] [id number] Social History Tobacco Use Types Packs/Day Years [...] Giron MD Code to process pre-auth for: [id number] Location of procedure: [facility] documented in this encounter Plan of Treatment Not on file documented as of this encounter Visit Diagnoses Not on filedocumented in this encounter Care Teams Hand Sole Sewer Relationship Specialty Start Date End Date Jason Vides MD [address] [place] [id number] PCP - General Internal Medicine 11/23/19 documented as of this encounter
--- OUTSIDE RECORDS SUMMARY | 2024-09-21 10:31 | XMS_ITS | Encounter Summary ---
[facility] Address [address] [place] [address] Care Team Providers Care Reeler Operator Name Role Phone Jason Vides MD Primary Care Provider [phone] Encounter Details Date Type Department Care Team Description 01/24/2021 Pt. Non Urgent Medic al Question Adult Medicine [address] [phone] Munira Kennedy PA Social History Tobacco Use [...] way this can be refilled [facility] in [facility] my recent appointment for January 17 was [...] on filedocumented in this encounter Care Teams Reeler Operator Relationship Specialty Start Date End Date Jason Vides MD [address] [place] [id number] PCP - General Internal Medicine 11/23/19 documented as of this encounter
--- OUTSIDE RECORDS SUMMARY | 2024-09-21 10:31 | XMS_ITS | Encounter Summary ---
[facility] Address [address] [place] [address] Care Team Providers Care Dough Molder Name Role Phone Jelani Riddle MD Primary Care Provider Unavail able Jason Vides MD Primary Care Provider [phone] Encounter Details Date Type Department Care Team Description 10/10/2015 Release of Information Medical Records [address] [place] [id number] Abstract, Provider Social History Tobacco Use Types [...] on filedocumented in this encounter Care Teams Dough Molder Relationship Specialty Start Date End Date Jelani Riddle MD PCP - General Internal Medicine 02/27/15 11/22/19 Jason Vides MD [address] [place] [address] [phone] PCP - General Internal Medicine 11/23/19 documented as of this encounter
--- OUTSIDE RECORDS SUMMARY | 2024-09-21 10:31 | XMS_ITS | Encounter Summary ---
[facility] Address [address] [place] [address] Care Team Providers Care City Sanitarian Name Role Phone Jelani Riddle MD Primary Care Provider Unavail able Jason Vides MD Primary Care Provider [phone] Encounter Details Date Type Department Care Team Description 02/28/2016 [facility] Fisher Report Medical Records [address] [place] [id number] Jamie Shaikh Social History Tobacco Use Types [...] on filedocumented in this encounter Care Teams City Sanitarian Relationship Specialty Start Date End Date Jelani Riddle MD PCP - General Internal Medicine 02/27/15 11/22/19 Jason Vides MD [address] [place] [address] [phone] PCP - General Internal Medicine 11/23/19 documented as of this encounter
--- OUTSIDE RECORDS SUMMARY | 2024-09-21 10:31 | XMS_ITS | Encounter Summary ---
Author Organization [facility] Address [address] [place] [address] Care Team Providers Care Greek Professor Name Role Phone Jason Vides MD Primary Care Provider [phone] Encounter Details Date Type Department Care Team Description 07/23/2022 Orders Only Adult Medicine [facility] [address] [place], [place] [phone] Claire Gomez PA-C [address] [place], [place] [phone] Essential hypertension, benign; Type 2 diabetes mellitus [...] 07/22/2022 Claire SHIELDS-C LAB Performing Organization Address [facility]/ZIP Co de Phone Number Panna * HEMOGLOBIN A1C (07/22/2022) 07/22/2022 Claire SHIELDS-C LAB Performing Organization Address [facility] Co de Phone Number Panna * COMPREHENSIVE METABOLIC PANEL (07/22/2022) 07/22/2022 Claire SHIELDS-C LAB Panna * CBC (AUTO DIFF PLATELET) (07/22/2022) 07/22/2022 Claire SHIELDS-C LAB Performing Organization Address [facility] Co de Phone Number Panna documented in this encounter Visit Diagnoses Diagnosis Essential hypertension, benign Type 2 diabetes mellitus with stage 3a chronic kidney disease, without long-term current use of insulin (HCC) documented in this encounter Care Teams Greek Professor Relationship Specialty Start Date End Date Jason Vides MD [address] [place] [phone] PCP - General Internal Medicine 11/23/19 documented as of this encounter
--- OUTSIDE RECORDS SUMMARY | 2024-09-21 10:31 | XMS_ITS | Encounter Summary ---
[facility] Address [address] [place] [address] Care Team Providers Care Galley Cook Name Role Phone Jason Vides MD Primary Care Provider [phone] Reason for Visit * Reason Onset Date Comments BLOOD PRESSURE-SELF MEASURED 11/26/2021 [place] dings to Provider Encounter Details Date Type Department Care Team Description 11/26/2021 Pt. Non Urgent Medic al Question Adult Medicine [address] [address] Munira Kennedy PA Social History Tobacco Use [...] - 11/27/2021 7:27 AM EDT Please see [employer] message with [employer], thank you. documented [...] on filedocumented in this encounter Care Teams Galley Cook Relationship Specialty Start Date End Date Jason Vides MD [address] [place] [phone] PCP - General Internal Medicine 11/23/19 documented as of this encounter
[2024-09-28 09:20] LABS: HPV Genotype 16 Negative (Negative); HPV Genotype 18 Negative (Negative); HPV High Risk Negative (Negative)
== END 2024-09-21 07:53 | disposition home or self-care (01) ==
LOC: HO.LNP 07:52
PROVIDERS: Visit Provider Obstetrics & Gynecology
DX: Z01.419 Encounter for gynecological examination (general) (routine) without abnormal findings (principal); N95.0 Postmenopausal bleeding
CPT/HCPCS: 87626; 88175

== ENCOUNTER 2024-09-21 14:35 | Outpatient (REF) | payer BC, SELFPAY ==
--- NOTE | ~2024-09-21 | US_ITS ---
CLINICAL HISTORY: N95.0 - Postmenopausal bleeding US pelvis transabdominal and transvaginal with Doppler Comparison: None Findings: Transabdominal scanning performed for overall anatomy. Transvaginal scanning performed for additional detail. Uterus is 9.1 cm length. Uterine fibroids: 2 x 2.1 x 2.3 cm, 3.3 x 3.8 x 3 cm, 0.9 x 0.9 x 1 cm, 2.6 x 2.5 x 2.7 cm No endometrial lesion, 6.0 mm thickness. Right ovary is not seen. Possible Left ovary 1.8 x 1.3 x 1.9 cm. Normal color Doppler with arterial/venous spectral tracing of possible left ovary. No free fluid. IMPRESSION: Mild thickening of the endometrium. Uterine fibroids. This document has been electronically signed by: Mckinley Echols MD on 09/21/2024 16:42:54
--- OUTSIDE RECORDS SUMMARY | 2024-09-21 15:45 | XMS_ITS | Clinical Summary ---
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 She then had vomiting and an itchy face Medications albuterol HFA (PROAIR HFA ; PROVENTIL HFA ; VENTOLIN HFA) 90 mcg/actuation inhaler Inhale 2 Puffs into the lungs 4 times daily as needed for Cough or Wheezing. 08/30/2020 Active blood-glucose meter kit Test daily 07/17/2020 Active FREESTYLE LANCETS MISC Test daily 07/17/2020 Activ e atenoloL (TENORMIN) 25 mg tablet TAKE 1 TABLET BY MOUTH DAILY 90 tablet 1 05/17/2024 Active omeprazole (PriLOSEC) [address] capsule TAKE 1 CAPSULE BY MOUTH DAILY 90 capsule 1 05/17/2024 Active lisinopriL (PRINIVIL,ZESTR IL) 5 mg tablet TAKE 1 TABLET BY MOUTH DAILY 90 tablet 1 06/07/2024 Active hydroCHLOROthia zide 12.5 mg tablet TAKE 1 TABLET BY MOUTH DAILY 90 tablet 1 06/07/2024 Active atorvastatin (LIPITOR) 20 mg tablet Take 1 tablet (20 mg total) by mouth at bedtime. at bedtime. 90 each 1 06/24/2024 Active ferrous sulfate 325 mg (65 mg iron) EC tablet Take 1 tablet (325 mg total) by mouth 1 (one) time each day. Do not crush, chew, or split. 90 each 1 06/27/2024 Active Active Problems Problem Noted Date Diagnosed Date Morbid obesity with BMI of 4 0.0-44.9, adult ([facility] V24, [facility] V28) 04/21/2024 Gastroesophageal reflux disease without esophagi tis 03/02/2023 CKD (chronic kidney disease) stage 3, GFR 30-59 ml/min ([facility] V24, [facility] V28) 03/06/2022 Type II diabetes mellitus wi th renal manifestations ([facility] V24, [facility] V28) 01/09/2020 Asthma in adult 05/03/2015 Hyperlipidemia 05/02/2015 Osteoarthritis of both knees 05/02/2015 Overview (04/21/2024): Cortisol injections at [facility] Calculus of kidney 06/09/2010 Overview (04/21/2024): Abnormal cytology Colon polyps 10/13/2008 Overview (04/21/2024): 10/13/08: 2-cm tubulovillous adenoma 10/24/11: Negative CN 11/27/16: 1 inflammatory polyp 10/18/21: 3 tubular adenomas - repeat CN in 3 years Essential hypertension, benign 04/28/2006 Encounters Date Type Department Care Team Description 08/09/2024 3:00 PM EDT Office Visit Gastroenterology [facility] 175 [facility] [address] [phone] Severo Sheriff PA Anemia, unspecified type (Primary Dx); Tubular adenoma of colon; Encounter for screening colonoscopy; Chronic kidney disease, unspecified CKD stage 08/09/2024 Telephone Gastroenterology [facility] 175 [facility] 175 [facility] [address] [place] [phone] Severo Sheriff PA 07/30/2024 9:15 AM EDT Clinic Lab Collection [facility] - [facility] [address] [place] [phone] Type 2 diabetes mellitus with chronic kidney disease, without long-term current use of insulin, unspecified CKD stage ([facility] V24, [facility] V28); Hyperlipidemia, unspecified hyperlipidemia type 07/26/2024 5:00 PM EDT Office Visit [address] [phone] Cristopher Price PA Essential hypertension, benign (Primary Dx); Hyperlipidemia, unspecified hyperlipidemia type; Type 2 diabetes mellitus with chronic kidney disease, without long-term current use of insulin, unspecified CKD stage ([facility] V24, [facility] V28); Stage 3a chronic kidney disease (CMS/HCC V24, [facility] V28); Gastroesophageal reflux disease without esophagitis; Iron deficiency anemia, unspecified iron deficiency anemia type 07/25/2024 3:30 PM EDT Office Visit [facility] Hematology Oncology [address] [place] [phone] Latrice Pineda PA Anemia, unspecified type (Primary Dx); Adenomatous polyp of colon, unspecified part of colon; History of postmenopausal bleeding from Last 3 Months Immunizations Name Administration Dates Next Due Influenza Quadravalent, MDCK , 0.5ml, preservative free (Flucelvax) 6mo and older 03/06/2022,06/26/2021,05/29/2019 Influenza trivalent, 0.5mL ( Fluad) 65yo and older 03/02/2023 Influenza trivalent, 0.5mL, preservative free (Fluarix; FluLaval; Fluzone) ages 6mo and older (Afluria) 3 years and older 03/04/2020,02/22/2016,03/20/2010 Influenza, Unspecified 02/24/2018 Pfizer SARS-CoV-2 COVID-19, mRNA, LNP-S, preservative free 05/04/2021 Pneumococcal polysaccharide 23 valent (Pneumovax 23) 2yo and older 06/04/2018 Tdap Tetanus diptheria acell ular pertussis (Boostrix; Adacel) 7yo and older 01/03/2020,08/29/2009 Surgical History Surgery Date Site/Laterality Comments BACK SURGERY 2001 PROCEDURE: HISTORICAL BACK SURGERY KIDNEY STONE SURGERY PROCEDURE: DE NEPHROLITHOTOMY REMOVAL CALCULUS SECTION PROCEDURE: HISTORICAL DELIVERY; COMMENT: times 3 COLONOSCOPY 10/13/2008 PROCEDURE: HISTORICAL COLONOSCOPY; COMMENT: large right colon polyp: 17 mm tubulovillous adenoma. COLONOSCOPY 10/24/2011 PROCEDURE: HISTORICAL COLONOSCOPY; COMMENT: no polyps COLONOSCOPY 11/27/2016 PROCEDURE: HISTORICAL COLONOSCOPY; COMMENT: 5 mm rectal polyp: Inflammatory. Nonneoplastic. TOTAL KNEE ARTHROPLASTY 11/23/2018 Right PROCEDURE: HISTORICAL TOTAL KNEE REPLACE BREAST BIOPSY Right PROCEDURE: BX BREAST; PERC NEEDLE CORE W/IMAG GUID; COMMENT: 2018 Medical History Medical History Date Comments Unspecified essential hypertension DX:Unspecified essential hypertension Essential hypertension, benign 04/28/06 D X:Essential hypertension, benign Calculus of kidney 06/09/2010 DX:Calculus o f kidney Obese 10/23/2010 DX:Obese History of colon polyps 10/13/2008 DX:Histo ry of colon polyps; COMMENT: 2-cm polyp, proximal right colon at colonoscopy 10/13/2008: Tubulovillous adenoma. Negative colonoscopy 10/24/2011, no colon cancer screening needed for 5 years. Gastroesophageal reflux dise ase without esophagitis 03/02/2023 DX:Gastroesophageal reflux d isease without esophagitis Family History Medical History Relation Name Comments CABG Father Hypertension Father Macular degeneration Mother Colon cancer Neg Hx Ovarian cancer Neg Hx Uterine cancer Neg Hx Relation Name Status Comments Father (Age 71) cad, htn, hyperlipidemia Mother (Age 63) breast can cer Social History Tobacco Use Types Packs/Day Years Used Date Smoking Tobacco: Never Smokeless Tobacco: Never Tobacco Cessation:Counseling Given: Not Answered Alcohol Use Standard Drinks/Week Comments Not Currently 0 (1 standard drink = 0.6 oz pur e alcohol) Comments Unknown Sex and Gender Information Value Date Recorded Sex Assigned at Not on file Legal Sex Female 7:06 PM EST Gender Identity Not on file Sexual Orientation Not on file Obstetrics History Last Filed Vital Signs Vital Sign Reading Time Taken Comments Blood Pressure 136/72 08/09/2024 3:03 PM EDT Pulse 65 08/09/2024 3:03 PM EDT Temperature 36.2 ??C (97.2 ??F) 07/26/2024 4:48 PM ED T Respiratory Rate - - Oxygen Saturation 99% 07/26/2024 4:48 PM EDT Inhaled Oxygen Concentration - - Weight 101 kg (222 lb) 08/09/2024 3:03 PM EDT Height 157.5 cm (5' 2 ) 08/09/2024 3:03 PM EDT Body Mass Index 40.6 08/09/2024 3:03 PM EDT Plan of Treatment Upcoming Encounters Date Type Department Care Team (Late st Contact Info) Description 10/31/2024 2:45 PM EDT Office Visit [facility] Hematology Oncology [address] [place] [phone] Latrice Pineda PA [address] [place] [address] 11/15/2024 8:30 AM EDT Appointment [facility] Endoscopy [address] [place] [phone] Adrienne Giron MD [address] [address] 12/06/2024 5:00 PM EDT Office Visit Adult Medicine [facility] - [address] [phone] Cristopher Price PA [address] [place] [phone] 02/25/2025 8:30 AM EDT Appointment Radiology Department - [address] [phone] Health Maintenance Due Date Last Done Comments Diabetes: Annual Foot Exam 1967 Diabetes: Annual Retina Eye Exam 1967 Zoster Vaccines (1 of 2) 2007 RSV Immunization Adult Patients (1 - Risk 60-74 years 1-dose series) 2017 Pneumococcal Vaccine: 50+ Years (2 of 2 - PCV) 06/04/2019 06/04/2018 Cervical Cancer Screening: HPV 06/10/2021 06/10/2016 Depression Screening 04/26/2022 Osteoporosis Screening (Bone Density Screening) 04/26/2022 Social Influencers of Health Screening 04/26/2022 Falls Risk Assessment 2022 COVID-19 Vaccine ( season) 2024 05/04/2021, 09/06/2020, 08/16/2020 Diabetes: Annual Urine Albumin-Creatinine Ratio (uACR) 09/14/2024 09/15/2023 Colorectal Cancer Screening: Colonoscopy 10/18/2024 10/18/2021 Influenza Vaccine (Season Ended) 2025 03/02/2023, 03/06/2022, 06/26/2021, Additional history exists Diabetes: Blood Sugar Control Test (HGBA1C) 01/30/2025 07/30/2024, 09/15/2023, 09/15/2023 Diabetes: Annual GFR (Glomerular Filtration Rate) 07/25/2025 07/25/2024, 04/26/2024, 09/15/2023, Additional history exists Hypertension/CHF/CAD Annual BMP Blood Test 07/25/2025 07/25/2024, 04/26/2024, 09/15/2023, Additional history exists Breast Cancer Screening 02/12/2026 02/13/20, 02/13/2024, 01/10/2023, Additional history exists Cholesterol Screening (Lipid Panel) 07/30/2029 07/30/2024, 09/15/2023, 09/15/2023 DTaP,Tdap,and Td Vaccines (3 - Td or Tdap) 01/02/2030 01/03/2020, 08/29/2009 Hepatitis C Screening Completed 09/15/2023 HIB Vaccines Aged Out No longer eligi ble based on patient's age to complete this topic HPV Vaccines Aged Out No longer eligi ble based on patient's age to complete this topic Hepatitis A Vaccines Aged Out No long er eligible based on patient's age to complete this topic Hepatitis B Vaccines Aged Out No long er eligible based on patient's age to complete this topic IPV Vaccines Aged Out No longer eligi ble based on patient's age to complete this topic MMR Vaccines Aged Out No longer eligi ble based on patient's age to complete this topic Meningococcal ACWY Vaccine Aged Out N o longer eligible based on patient's age to complete this topic Meningococcal B Vaccine Aged Out No l onger eligible based on patient's age to complete this topic RSV Immunization Patients Under 20 months Aged Out No longer eligible based on patient's age to complete this topic Varicella Vaccines Aged Out No longer eligible based on patient's age to complete this topic Procedures Procedure Name Priority Date/Time Associated Diagnosis Comments LIPID PANEL WITH REFLEX TO DIRECT LDL Routine 07/30/2024 9:36 AM EDT Type 2 diabetes mellitus with chronic kidney disease, without long-term current use of insulin, unspecified CKD stage ([facility] V24, [facility] V28) Hyperlipidemia, unspecified hyperlipidemia type HEMOGLOBIN A1C Routine 07/30/2024 9:36 AM EDT Type 2 diabetes mellitus with chronic kidney disease, without long-term current use of insulin, unspecified CKD stage (CMS/HCC V24, [facility] V28) DE PROTEIN ELECTROPHORETIC FRACTIONATION & QUANTITATION SERUM Routine 07/25/2024 4:25 PM EDT Anemia, unspecified type Adenomatous polyp of colon, unspecified part of colon History of postmenopausal bleeding DE IMMUNOFIXATION ELECTROPHORESIS SERUM Routine 07/25/2024 4:25 PM EDT Anemia, unspecified type Adenomatous polyp of colon, unspecified part of colon History of postmenopausal bleeding PROTEIN, TOTAL Routine 07/25/2024 4:25 PM EDT Anemia, unspecified type Adenomatous polyp of colon, unspecified part of colon History of postmenopausal bleeding IMMUNOGLOBULINS IGG, IGA, IGM Routine 07/25/2024 4:25 PM EDT Anemia, unspecified type Adenomatous polyp of colon, unspecified part of colon History of postmenopausal bleeding IMMUNOFIXATION ELECTROPHORESIS Routine 07/25/2024 4:25 PM EDT Anemia, unspecified type Adenomatous polyp of colon, unspecified part of colon History of postmenopausal bleeding CBC WITH AUTO DIFFERENTIAL Routine 07/25/2024 4:25 PM EDT Anemia, unspecified type Adenomatous polyp of colon, unspecified part of colon History of postmenopausal bleeding FOLATE Routine 07/25/2024 4:25 PM EDT Anemia, unspecified type Adenomatous polyp of colon, unspecified part of colon History of postmenopausal bleeding THYROID STIMULATING HORMONE WITH REFLEX TO FREE T4 AND FREE T3 Routine 07/25/2024 4:25 PM EDT Anemia, unspecified type Adenomatous polyp of colon, unspecified part of colon History of postmenopausal bleeding RETICULOCYTE COUNT Routine 07/25/2024 4: 25 PM EDT Anemia, unspecified type Adenomatous polyp of colon, unspecified part of colon History of postmenopausal bleeding PROTEIN ELECTROPHORESIS, SERUM Routine 07/25/2024 4:25 PM EDT Anemia, unspecified type Adenomatous polyp of colon, unspecified part of colon History of postmenopausal bleeding LACTATE DEHYDROGENASE Routine 07/25/2024 4:25 PM EDT Anemia, unspecified type Adenomatous polyp of colon, unspecified part of colon History of postmenopausal bleeding KAPPA-LAMBDA QUANTITATIVE FREE LIGHT CHAINS Routine 07/25/2024 4:25 PM EDT Anemia, unspecified type Adenomatous polyp of colon, unspecified part of colon History of postmenopausal bleeding IRON AND TIBC Routine 07/25/2024 4:25 PM EDT Anemia, unspecified type Adenomatous polyp of colon, unspecified part of colon History of postmenopausal bleeding IMMUNOFIXATION ELECTROPHORESIS Routine 07/25/2024 4:25 PM EDT Anemia, unspecified type Adenomatous polyp of colon, unspecified part of colon History of postmenopausal bleeding HEMOGLOBIN ELECTROPHORESIS Routine 07/25/2024 4:25 PM EDT Anemia, unspecified type Adenomatous polyp of colon, unspecified part of colon History of postmenopausal bleeding HAPTOGLOBIN Routine 07/25/2024 4:25 PM EDT Anemia, unspecified type Adenomatous polyp of colon, unspecified part of colon History of postmenopausal bleeding FERRITIN Routine 07/25/2024 4:25 PM EDT Anemia, unspecified type Adenomatous polyp of colon, unspecified part of colon History of postmenopausal bleeding ERYTHROPOIETIN Routine 07/25/2024 4:25 PM EDT Anemia, unspecified type Adenomatous polyp of colon, unspecified part of colon History of postmenopausal bleeding COMPREHENSIVE METABOLIC PANEL Routine 07/25/2024 4:25 PM EDT Anemia, unspecified type Adenomatous polyp of colon, unspecified part of colon History of postmenopausal bleeding CBC AND DIFFERENTIAL Routine 07/25/2024 4:25 PM EDT Anemia, unspecified type Adenomatous polyp of colon, unspecified part of colon History of postmenopausal bleeding SCREENING MAMMOGRAPHY BI 2-VIEW BREAST INC CAD Routine 02/13/2024 10:37 AM EDT Encounter for screening mammogram for malignant neoplasm of breast HEPATITIS C SCREENING Routine 09/15/2023 URINE ALBUMIN CREATININE RATIO Routine 09/15/2023 COLONOSCOPY Routine 10/18/2021 HPV Routine 06/10/2016 from Last 3 Months or Most Recently Relevant to Health Maintenance Results * Lipid panel with reflex to direct LDL (07/30/2024 9:36 AM EDT) Cholesterol 173 0 - 200 mg/dL LAB CHEMISTRY METHOD 07/30/2024 6:13 PM EDT [facility] Triglycerides 70 0 - 150 mg/dL LAB CHEMISTRY METHOD 07/30/2024 6:13 PM EDT [facility] HDL 79 >=40 mg/dL LAB CHEMISTRY METHOD 07/30/2024 6:13 PM EDT [facility] LDL Calculated 80 0 - 100 mg/dL LAB CHEMISTRY METHOD 07/30/2024 6:13 PM EDT [facility] VLDL Cholesterol Harjinder 14 mg/dL LAB CHEMISTRY METHOD 07/30/2024 6:13 PM EDT [facility] Non HDL Chol. (LDL+VLDL) 94 <145 mg/dL LAB CHEMISTRY METHOD 07/30/2024 6:13 PM EDT [facility] Chol/HDL Ratio 2.2 0.0 - 4.4 LAB CHEMISTRY METHOD 07/30/2024 6:13 PM EDT [facility] Blood Venous blood specimen / Unknown Venipuncture / Unknown 07/30/2024 9:36 AM EDT 07/30/2024 9:36 AM EDT Cristopher SHIELDS LAB BLOOD ORDERABLES Fi nal Result Performing Organization Address [facility]/ZIP Co de Phone Number [facility] [address] [place] [address], [place] [phone] * (ABNORMAL) Hemoglobin A1c (07/30/2024 9:36 AM EDT) Hemoglobin A1C 6.9(H) <6.5 % LAB CHEMISTRY METHOD 07/31/2024 12:07 PM EDT [facility] Mean Bld Glu Estim. 151 mg/dL LAB CHEMISTRY METHOD 07/31/2024 12:07 PM EDT [facility] Blood Venous blood specimen / Unknown Venipuncture / Unknown 07/30/2024 9:36 AM EDT 07/30/2024 9:36 AM EDT us Cristopher SHIELDS LAB BLOOD ORDERABLES Fi nal Result Performing Organization Address City/[facility]/ZIP Co de Phone Number [facility] [address] [place] [address], [place] [phone] * Pathologist Review Immunofixation (07/25/2024 4:25 PM EDT) Pathologist Interpretation Reviewed by Lurdes Harkins MD 07/26/2024 4:46 PM EDT [facility] Blood Venous blood specimen / Unknown Venipuncture / Unknown 07/25/2024 4:25 PM EDT 07/25/2024 4:48 PM EDT us Latrice SHIELDS LAB BLOOD ORDERABLES Final Re sult [facility] [address] [place] [address], [place] [phone] * PATHOLOGIST REVIEW PROTEIN ELECTROPHORESIS (07/25/2024 4:25 PM EDT) Pathologist Interpretation Reviewed by Lurdes Harkins MD 07/26/2024 4:44 PM EDT [facility] Blood Venous blood specimen / Unknown Venipuncture / Unknown 07/25/2024 4:25 PM EDT 07/25/2024 4:48 PM EDT us Latrice SHIELDS LAB BLOOD ORDERABLES Final Re sult Performing Organization Address City/[facility]/ZIP Co de Phone Number [facility] [address] [place] [address], [place] [phone] * Thyroid stimulating hormone with reflex to free t4 and free t3 (07/25/2024 4:25 PM EDT) TSH 1.47 0.40 - 4.00 mcIU/mL LAB CHEMISTRY METHOD 07/25/2024 5:46 PM EDT [facility] Blood Venous blood specimen / Unknown Venipuncture / Unknown 07/25/2024 4:25 PM EDT 07/25/2024 4:48 PM EDT Latrice SHIELDS LAB BLOOD ORDERABLES Final Re sult [facility] [address] [place] [address], * (ABNORMAL) [place]-lambda free light chains, quantitative (07/25/2024 4:25 PM EDT) Pathologist [facility] [place] Free Light Chain 4.15(H) 0.33 - 1.94 mg/dL 07/28/2024 12:43 PM EDT [facility] Lambda Free Light Chain 2.84(H) 0.57 - 2.63 mg/dL 07/28/2024 12:43 PM EDT [facility] [place]/Lambda FLC Ratio 1.46 0.26 - 1.65 07/28/2024 12:43 PM EDT [facility] Comment: Test performed at [facility], [address] , [place], [place] ??[address] ? [phone] Sarah Bryan MD, PhD - [employer] Blood Venous blood specimen / Unknown Venipuncture / Unknown 07/25/2024 4:25 PM EDT 07/25/2024 4:49 PM EDT Latrice SHIELDS LAB BLOOD ORDERABLES Final Re sult [facility] [address] [place] [address] * (ABNORMAL) CBC auto differential (07/25/2024 4:25 PM EDT) Pathologist [facility] WBC 8.5 4.8 - 10.8 K/mcL LAB HEMETOLOGY METHOD 07/25/2024 5:07 PM EDT [facility] RBC 4.20 3.80 - 4.80 M/mcL LAB HEMETOLOGY METHOD 07/25/2024 5:07 PM EDT [facility] Hemoglobin 10.1(L) 11.5 - 16.0 g/dL LAB HEMETOLOGY METHOD 07/25/2024 5:07 PM EDT [facility] Hematocrit 33.9(L) 35.0 - 47.0 % LAB HEMETOLOGY [facility] MCV 80.3 79.0 - 98.0 FL LAB HEMETOLOGY METHOD 07/25/2024 5:07 PM [facility] MCH 23.9(L) 27.0 - 32.0 pcg LAB HEMETOLOGY METHOD 07/25/2024 5:07 PM [facility] MCHC 29.8(L) 32.0 - 37.0 g/dL LAB HEMETOLOGY METHOD 07/25/2024 5:07 PM [facility] RDW 18.7(H) 11.0 - 15.0 % LAB HEMETOLOGY METHOD 07/25/2024 5:07 PM [facility] Platelets 290 130 - 400 K/mcL LAB HEMETOLOGY METHOD 07/25/2024 5:07 PM [facility] MPV 10.4 7.0 - 11.0 FL LAB HEMETOLOGY METHOD 07/25/2024 5:07 PM [facility] NRBC 0.0 <1.0 % LAB HEMETOLOGY METHOD 07/25/2024 5:07 PM [facility] NRBC Absolute 0.00 <0.10 K/mcL LAB HEMETOLOGY METHOD 07/25/2024 5:07 PM [facility] Neutrophils Relative 57.5 % LAB HEMETOLOGY METHOD 07/25/2024 5:07 PM [facility] Lymphocytes Relative 29.7 % LAB HEMETOLOGY METHOD 07/25/2024 5:07 PM [facility] Monocytes Relative 8.9 % LAB HEMETOLOGY METHOD 07/25/2024 5:07 PM [facility] Eosinophils Relative 2.0 % LAB HEMETOLOGY METHOD 07/25/2024 5:07 PM EDT [facility] Basophils Relative 0.8 % LAB HEMETOLOGY METHOD 07/25/2024 5:07 PM EDT [facility] Immature Granulocytes Relative 1.1 % LAB HEMETOLOGY METHOD 07/25/2024 5:07 PM EDT [facility] Neutrophils Absolute 4.91 1.50 - 7.00 K/mcL LAB HEMETOLOGY METHOD 07/25/2024 5:07 PM EDT [facility] Lymphocytes Absolute 2.53 1.00 - 5.00 K/mcL LAB HEMETOLOGY METHOD 07/25/2024 5:07 PM EDT [facility] Monocytes Absolute 0.76 0.20 - 1.00 K/mcL LAB HEMETOLOGY METHOD 07/25/2024 5:07 PM EDT [facility] Eosinophils Absolute 0.17 0.00 - 0.50 K/mcL LAB HEMETOLOGY METHOD 07/25/2024 5:07 PM EDT [facility] Basophils Absolute 0.07 0.00 - 0.20 K/mcL LAB HEMETOLOGY METHOD 07/25/2024 5:07 PM EDT [facility] Immature Granulocytes Absolute 0.09(H) 0.00 - 0.03 K/mcL LAB HEMETOLOGY METHOD 07/25/2024 5:07 PM EDT [facility] Blood Venous blood specimen / Unknown Venipuncture / Unknown 07/25/2024 4:25 PM EDT 07/25/2024 4:48 PM EDT us Latrice SHIELDS LAB BLOOD ORDERABLES Final Re sult [facility] [address] [place] [address], * Hemoglobin electrophoresis (07/25/2024 4:25 PM EDT) Hemoglobin A1 97.8 96.5 - 97.8 % 07/28/2024 1:01 PM EDT [facility] Hemoglobin A2 2.2 2.2 - 3.2 % 07/28/2024 1:01 PM EDT [facility] Hemoglobin F 0.0 <2.0 % 07/28/2024 1:01 PM EDT [facility] Hemoglobin S 0.0 0.0 % 07/28/2024 1:01 PM EDT [facility] Hemoglobin C 0.0 0.0 % 07/28/2024 1:01 PM EDT [facility] Interpretation See Below 07/28/2024 1:01 PM EDT [facility] Comment: No abnormal hemoglobin variants seen on hemoglobin electrophoresis. Test performed at [facility], [address] [place], [place] ??[address] ? [phone] Sarah Bryan MD, PhD - [employer] Blood Venous blood specimen / Unknown Venipuncture / Unknown 07/25/2024 4:25 PM EDT 07/25/2024 4:48 PM EDT Latrice Pineda PA LAB BLOOD ORDERABLES Final Re sult [facility] [address] [place] [address] * (ABNORMAL) Erythropoietin (07/25/2024 4:25 PM EDT) Erythropoietin 24.8(H) 2.6 - 18.5 mIU/mL 07/28/2024 2:53 PM EDT [facility] Comment: Test performed at [facility], [address] [place], [place] ??[address] ? [phone] Sarah Bryan MD, PhD - [employer] Blood Venous blood specimen / Unknown Venipuncture / Unknown 07/25/2024 4:25 PM EDT 07/25/2024 4:49 PM EDT us Latrice SHIELDS LAB BLOOD ORDERABLES Final Re sult [facility] [address] [place] [address] * Iron and TIBC (07/25/2024 4:25 PM EDT) Iron 128 40 - 150 mcg/dL LAB CHEMISTRY METHOD 07/25/2024 5:38 PM EDT [facility] TIBC 361 250 - 450 mcg/dL LAB CHEMISTRY METHOD 07/25/2024 5:38 PM EDT [facility] Iron Saturation 35 15 - 50 % LAB CHEMISTRY METHOD 07/25/2024 5:38 PM EDT [facility] Blood Venous blood specimen / Unknown Venipuncture / Unknown 07/25/2024 4:25 PM EDT 07/25/2024 4:48 PM EDT Latrice SHIELDS LAB BLOOD ORDERABLES Final Re sult Performing Organization Address City/[facility]/ZIP Co de Phone Number [facility] [address] [place] [address], * (ABNORMAL) Reticulocyte count (07/25/2024 4:25 PM EDT) Retic Ct Abs 0.080 0.030 - 0.090 M/mcL LAB HEMETOLOGY METHOD 07/25/2024 5:07 PM EDT [facility] Retic Ct Pct 1.9(H) 0.7 - 1.7 % LAB HEMETOLOGY METHOD 07/25/2024 5:07 PM EDT [facility] Immature Retic Fract 24.3(H) 2.3 - 15.9 % LAB HEMETOLOGY METHOD 07/25/2024 5:07 PM EDT [facility] Reticulocyte Hemoglobin 28.2(L) >29.0 pcg LAB HEMETOLOGY METHOD 07/25/2024 5:07 PM EDT [facility] Blood Venous blood specimen / Unknown Venipuncture / Unknown 07/25/2024 4:25 PM EDT 07/25/2024 4:48 PM EDT Latrice SHIELDS LAB BLOOD ORDERABLES Final Re sult Performing Organization Address City/[facility]/ZIP Co de Phone Number [facility] [address] [place] [address], [place] [phone] * Immunofixation electrophoresis serum (07/25/2024 4:25 PM EDT) [facility] Immunofixation Result, Serum No monoclonal immunoglobulins detected. LAB CHEMISTRY METHOD 07/26/2024 4:46 PM EDT [facility] Blood Venous blood specimen / Unknown Venipuncture / Unknown 07/25/2024 4:25 PM EDT 07/25/2024 4:48 PM EDT Latrice SHIELDS LAB BLOOD ORDERABLES Final Re sult Performing Organization Address City/[facility]/ZIP Co de Phone Number [facility] [address] [place] [address], [place] [phone] * (ABNORMAL) Immunoglobulins IgG, IgA, IgM (07/25/2024 4:25 PM EDT) [facility] Total IgG 1,360 549 - 1,584 mg/dL LAB CHEMISTRY METHOD 07/25/2024 5:50 PM EDT [facility] IgA 476(H) 61 - 348 mg/dL LAB CHEMISTRY METHOD 07/25/2024 5:50 PM EDT [facility] IgM 116 23 - 259 mg/dL LAB CHEMISTRY METHOD 07/25/2024 5:50 PM EDT [facility] Blood Venous blood specimen / Unknown Venipuncture / Unknown 07/25/2024 4:25 PM EDT 07/25/2024 4:48 PM EDT us Latrice SHIELDS LAB BLOOD ORDERABLES Final Re sult [facility] [address] [place] [address], [place] [phone] * Protein electrophoresis, serum (07/25/2024 4:25 PM EDT) Total Protein 7.2 6.0 - 8.0 g/dL LAB CHEMISTRY METHOD 07/26/2024 4:44 PM EDT [facility] Albumin, Serum 3.2 2.9 - 4.1 g/dL LAB CHEMISTRY METHOD 07/26/2024 4:44 PM EDT [facility] Alpha 1 Globulin (g/dL) 0.2 0.1 - 0.5 g/dL LAB CHEMISTRY METHOD 07/26/2024 4:44 PM EDT [facility] Alpha 2 Globulin (g/dL) 1.1 0.7 - 1.5 g/dL LAB CHEMISTRY METHOD 07/26/2024 4:44 PM EDT [facility] Beta (g/dL) 1.1 0.7 - 1.5 g/dL LAB CHEMISTRY METHOD 07/26/2024 4:44 PM EDT [facility] Gamma Globulin (g/dL) 1.6 0.7 - 1.9 g/dL LAB CHEMISTRY METHOD 07/26/2024 4:44 PM EDT [facility] SPEP Interpretation Essentially normal pattern. No M-Braydon seen. LAB CHEMISTRY METHOD 07/26/2024 4:44 PM EDT [facility] Blood Venous blood specimen / Unknown Venipuncture / Unknown 07/25/2024 4:25 PM EDT 07/25/2024 4:48 PM EDT us Latrice SHIELDS LAB BLOOD ORDERABLES Final Re sult [facility] [address] [place] [address], [place] [phone] * Protein, total (07/25/2024 4:25 PM EDT) [facility] Total Protein 7.2 6.0 - 8.0 g/dL LAB CHEMISTRY METHOD 07/25/2024 5:40 PM EDT [facility] Blood Venous blood specimen / Unknown Venipuncture / Unknown 07/25/2024 4:25 PM EDT 07/25/2024 4:48 PM EDT Latrice SHIELDS LAB BLOOD ORDERABLES Final Re sult Performing Organization Address [facility] Co de Phone Number [facility] [address] [place] [address], [place] [phone] * Lactate dehydrogenase (07/25/2024 4:25 PM EDT) [facility] LDH 186 120 - 246 unit/L LAB CHEMISTRY METHOD 07/25/2024 5:38 PM EDT [facility] Blood Venous blood specimen / Unknown Venipuncture / Unknown 07/25/2024 4:25 PM EDT 07/25/2024 4:48 PM EDT Latrice SHIELDS LAB BLOOD ORDERABLES Final Re sult [facility] [address] [place] [address], [place] [phone] * (ABNORMAL) Haptoglobin (07/25/2024 4:25 PM EDT) [facility] Haptoglobin 263(H) 16 - 200 mg/dL LAB CHEMISTRY METHOD 07/25/2024 5:38 PM EDT [facility] Blood Venous blood specimen / Unknown Venipuncture / Unknown 07/25/2024 4:25 PM EDT 07/25/2024 4:48 PM EDT Latrice SHIELDS LAB BLOOD ORDERABLES Final Re sult Performing Organization Address [facility]/ZIP Co de Phone Number [facility] [address] [place] [address], [place] [phone] * Folate (07/25/2024 4:25 PM EDT) [facility] Folate 12.6 2.8 - 17.0 ng/ml LAB CHEMISTRY METHOD 07/25/2024 5:50 PM EDT [facility] Blood Venous blood specimen / Unknown Venipuncture / Unknown 07/25/2024 4:25 PM EDT 07/25/2024 4:48 PM EDT Latrice SHIELDS LAB BLOOD ORDERABLES Final Re sult Performing Organization Address [facility]/ZIP Co de Phone Number [facility] [address] [place] [address], [place] [phone] * Ferritin (07/25/2024 4:25 PM EDT) [facility] Ferritin 17 8 - 252 ng/mL LAB CHEMISTRY METHOD 07/25/2024 5:50 PM EDT [facility] Blood Venous blood specimen / Unknown Venipuncture / Unknown 07/25/2024 4:25 PM EDT 07/25/2024 4:48 PM EDT Latrice SHIELDS LAB BLOOD ORDERABLES Final Re sult Performing Organization Address City/[facility]/ZIP Co de Phone Number [facility] [address] [place] [address], [place] [phone] * (ABNORMAL) Comprehensive metabolic panel (07/25/2024 4:25 PM EDT) Sodium 138 133 - 145 mmol/L LAB CHEMISTRY METHOD 07/25/2024 5:38 PM [facility] Potassium 3.4(L) 3.5 - 5.5 mmol/L LAB CHEMISTRY METHOD 07/25/2024 5:38 PM [facility] Chloride 102 96 - 110 mmol/L LAB CHEMISTRY METHOD 07/25/2024 5:38 PM [facility] CO2 28 21 - 32 mmol/L LAB CHEMISTRY METHOD 07/25/2024 5:38 PM [facility] Anion Gap 8 3 - 11 LAB CHEMISTRY METHOD 07/25/2024 5:38 PM [facility] Glucose 109(H) 70 - 100 mg/dL LAB CHEMISTRY METHOD 07/25/2024 5:38 PM [facility] BUN 15 5 - 25 mg/dL LAB CHEMISTRY METHOD 07/25/2024 5:38 PM [facility] Creatinine 1.12(H) 0.50 - 1.10 mg/dL LAB CHEMISTRY METHOD 07/25/2024 5:38 PM [facility] eGFR 54(L) >=60 mL/min/1. 73m2 LAB CHEMISTRY METHOD 07/25/2024 5:38 PM [facility] Comment:Calculation based on the??Chronic Kidney Disease Epidemiology Collaboration (CKD-EPI) equation refit??without adjustment for race. BUN/Creatinine Ratio 13.4 LAB CHEMISTRY METHOD 07/25/2024 5:38 PM [facility] Calcium 8.6 8.5 - 10.5 mg/dL LAB CHEMISTRY METHOD 07/25/2024 5:38 PM [facility] AST (SGOT) 26 10 - 42 unit/L LAB CHEMISTRY METHOD 07/25/2024 5:38 PM [facility] ALT (SGPT) 25 10 - 60 unit/L LAB CHEMISTRY METHOD 07/25/2024 5:38 PM [facility] Alkaline Phosphatase 117 42 - 121 unit/L LAB CHEMISTRY METHOD 07/25/2024 5:38 PM EDT [facility] Total Protein 7.2 6.0 - 8.0 g/dL LAB CHEMISTRY METHOD 07/25/2024 5:38 PM EDT [facility] Albumin 3.3 3.2 - 5.0 g/dL LAB CHEMISTRY METHOD 07/25/2024 5:38 PM EDT [facility] Total Bilirubin 0.3 0.0 - 1.4 mg/dL LAB CHEMISTRY METHOD 07/25/2024 5:38 PM EDT [facility] Blood Venous blood specimen / Unknown Venipuncture / Unknown 07/25/2024 4:25 PM EDT 07/25/2024 4:48 PM EDT Latrice SHIELDS LAB BLOOD ORDERABLES Final Re sult [facility] [address] [place] [address], * SCREENING MAMMOGRAPHY BI 2-VIEW BREAST INC CAD (02/13/2024 10:37 AM EDT) Anatomical Region Laterality Modality Radiographic Diana ging 01/10/2023 9:15 AM EDT Narrative 02/13/2024 4:37 PM EDT This is a summary report. The complete report is available in the patient's medical record. If you cannot access the medical record, please contact the sending organization for a detailed fax or copy. Full field digital screening tomosynthesis mammography, reviewed with CAD and compared to previous. The breast tissue is heterogeneously dense, limiting sensitivity. No suspicious mass, architectural distortion or suspicious calcifications are identified. ??Again noted multiple bilateral circumscribed nodular opacities, most likely waxing and waning cysts IMPRESSION: : Dense breast tissue, limiting the sensitivity of mammography. No mammographic evidence of malignancy. BI-RADS 2, benign findings. Breast density: The breasts are heterogeneously dense, which may obscure small masses. 5 year breast cancer risk assessment 4.2 % Lifetime breast cancer risk assessment 14.4 % Breast cancer risk category Low (<15%) Location: [facility], [address] [place] [address], [address], [phone] Procedure Note Latrice Garcia MD - 03/02/2024 This is a summary report. The complete report is available in thepatient's medical record. If you cannot access the medical record, pleasecontact the sending organization for a detailed fax or copy. Full field digital screening tomosynthesis mammography, reviewed with CADand compared to previous. The breast tissue is heterogeneously dense,limiting sensitivity. No suspicious mass, architectural distortion orsuspicious calcifications are identified. Again noted multiple bilateralcircumscribed nodular opacities, most likely waxing and waning cysts IMPRESSION: : Dense breast tissue, limiting the sensitivity of mammography. Nomammographic evidence of malignancy. BI-RADS 2, benign findings. Breast density: The breasts are heterogeneously dense, which may obscuresmall masses. 5 year breast cancer risk assessment 4.2 % Lifetime breast cancer risk assessment 14.4 % Breast cancer risk category Low (<15%) Location: [facility], [address] [place] [address], [address], [phone] Result [facility] Jason Vides MD IMG XR PROCEDURES Final Result * Urine Albumin Creatinine Ratio (09/15/2023) [facility] Urine Albumin Creatinine Ratio Abstracted Result [facility] Provider HEALTH MAINTENANCE Final Result * Hepatitis C Screening (09/15/2023) [facility] Hepatitis C Screening Abstracted Result [facility] HEALTH MAINTENANCE Final Result * Colonoscopy (10/18/2021) [facility] Colonoscopy No Interpretation , Abstracted Anatomical Region Laterality Modality Other Result [facility] HEALTH MAINTENANCE Final Result * Cervical Cancer Screening: HPV (06/10/2016) Cervical Cancer Screening: HPV Negative, Abstracted us Historical Provider HEALTH MAINTENANCE Final Result from Last 3 Months or Most Recently Relevant to [place] [phone] [facility] 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
== END 2024-09-21 14:36 | disposition home or self-care (01) ==
LOC: HO.US 14:35
PROVIDERS: PCP Internal Medicine; Visit Provider Obstetrics & Gynecology
DX: N95.0 Postmenopausal bleeding (principal)
CPT/HCPCS: 76830; 76856

== ENCOUNTER → 2024-09-21 14:40 | Outpatient (BNV) | payer BC, SELFPAY | PROVIDERS: PCP Internal Medicine; Visit Provider Nuclear Medicine | DX: N95.0 Postmenopausal bleeding (principal) | CPT/HCPCS: 76830; 76856 ==

== ENCOUNTER 2024-09-28 14:32 | Outpatient (REF) | payer BC, SELFPAY ==
--- OUTSIDE RECORDS SUMMARY | 2024-09-28 15:17 | XMS_ITS | Encounter Summary ---
[facility] Address [address] [place] [address] Care Team Providers Care Literature Teacher Name Role Phone Jason Vieds MD Primary Care Provider [phone] Reason for Visit * Reason Onset Date Comments Prior Authorization 09/05/2021 colonoscopy Encounter Details Date Type Department Care Team Description 09/05/2021 Telephone Adult Medicine [facility] [address] [place], [place] [phone] Richar Giron MD [address] [place] [address] [phone] Prior Authorization (colonoscopy) Social History Tobacco Use [...] Lillie Nicholas - 09/05/2021 9:43 AM EDT [place] [employer] - no auth required [...] MD ?? Code to process pre-auth for: [id number] ?? Location of procedure: [facility] documented in this encounter Plan of Treatment Not on file documented as of this encounter Visit Diagnoses Not on filedocumented in this encounter Care Teams Literature Teacher Relationship Specialty Start Date End Date Jason Vides MD [address] [place] [address] PCP - General Internal Medicine 11/23/19 documented as of this encounter
--- OUTSIDE RECORDS SUMMARY | 2024-09-28 15:17 | XMS_ITS | Encounter Summary ---
[facility] Address [address] [place] [address] Care Team Providers Care Shearer Helper Name Role Phone Jelani Riddle MD Primary Care Provider Unavail able Jason Vides MD Primary Care Provider [phone] Encounter Details Date Type Department Care Team Description 02/28/2016 Foam Rubber Curer Report Medical Records [address] [place] [address] Jamie Shaikh Social History Tobacco Use Types [...] on filedocumented in this encounter Care Teams Shearer Helper Relationship Specialty Start Date End Date Jelani Riddle MD PCP - General Internal Medicine 02/27/15 11/22/19 Jason Vides MD [address] [place] [address] [phone] PCP - General Internal Medicine 11/23/19 documented as of this encounter
--- OUTSIDE RECORDS SUMMARY | 2024-09-28 15:17 | XMS_ITS | Encounter Summary ---
Author Organization [facility] Address [address] [place] [address] Care Team Providers Care Grounds Crew Supervisor Name Role Phone Jason Vides MD Primary Care Provider [phone] Encounter Details Date Type Department Care Team Description 07/23/2022 Orders Only Adult Medicine [facility] [address] [place], [place] [phone] Claire Gomez PA-C [address] [place], [place] [phone] Essential hypertension, benign; Type 2 diabetes mellitus [...] 07/22/2022 Claire SHIELDS-C LAB Performing Organization Address [facility]/ZIP Co de Phone Number [employer] * HEMOGLOBIN A1C (07/22/2022) 07/22/2022 Claire SHIELDS-C LAB Performing Organization Address [facility] Co de Phone Number [employer] * COMPREHENSIVE METABOLIC PANEL (07/22/2022) 07/22/2022 Claire SHIELDS-C LAB [employer] * CBC (AUTO DIFF PLATELET) (07/22/2022) 07/22/2022 Claire SHIELDS-C LAB Performing Organization Address [facility] Co de Phone Number [employer] documented in this encounter Visit Diagnoses Diagnosis Essential hypertension, benign Type 2 diabetes mellitus with stage 3a chronic kidney disease, without long-term current use of insulin (HCC) documented in this encounter Care Teams Grounds Crew Supervisor Relationship Specialty Start Date End Date Jason Vides MD [address] [place] [phone] PCP - General Internal Medicine 11/23/19 documented as of this encounter
--- OUTSIDE RECORDS SUMMARY | 2024-09-28 15:17 | XMS_ITS | Encounter Summary ---
[facility] Address [address] [place] [address] Care Team Providers Care Aquatic Physiotherapist Name Role Phone Jason Vides MD Primary Care Provider [phone] Reason for Visit * Reason Onset Date Comments BLOOD PRESSURE-SELF MEASURED 11/26/2021 Dinorah dings to Provider Encounter Details Date Type Department Care Team Description 11/26/2021 Pt. Non Urgent Medic al Question Adult Medicine [address] [address] Munira Kennedy PA Social History Tobacco Use [...] - 11/27/2021 7:27 AM EDT Please see [place] message with BP Readings, thank you. documented [...] on filedocumented in this encounter Care Teams Aquatic Physiotherapist Relationship Specialty Start Date End Date Jason Vides MD [address] [place] [address] PCP - General Internal Medicine 11/23/19 documented as of this encounter
--- OUTSIDE RECORDS SUMMARY | 2024-09-28 15:17 | XMS_ITS | Encounter Summary ---
Author [facility] Address [address] [place] [address] Care Team Providers Care Bank Messenger Name Role Phone Jason Vides MD Primary Care Provider Encounter Details Date Type Department Care Team Description 06/27/2021 Telephone Gastroenterology - [place] [address] [facility] [address] [place] [address] Richar Giron MD [address] [place] [address] [phone] Social History Tobacco Use Types Packs/Day Years [...] Giron MD Code to process pre-auth for: 60236 Location of procedure: [facility] documented in this encounter Plan of Treatment Not on file documented as of this encounter Visit Diagnoses Not on filedocumented in this encounter Care Teams Bank Messenger Relationship Specialty Start Date End Date Jason Vides MD [address] [place] [phone] PCP - General Internal Medicine 11/23/19 documented as of this encounter
--- OUTSIDE RECORDS SUMMARY | 2024-09-28 15:17 | XMS_ITS | Clinical Summary ---
Author Organization [facility] Address [address] [place] [address] Care Team Providers Care Professional Architect Name Role Phone Jason Vides MD Primary Care Provider [phone] Allergies Active Allergy Reactions Severity Noted Date [...] Completed 09/15/2023 , 05/03/2015 (Refused) Care Teams Professional Architect Relationship Specialty Start Date End Date Jason Vides MD [address] [place] [address] PCP - General Internal Medicine 11/23/19
--- OUTSIDE RECORDS SUMMARY | 2024-09-28 15:17 | XMS_ITS | Encounter Summary ---
[facility] Address [address] [place] [address] Care Team Providers Care Enterprise Resource Planning Consultant Name Role Phone Jason Vides MD Primary Care Provider [phone] Encounter Details Date Type Department Care Team Description 05/25/2020 Belting And Webbing Inspector Report Medical Records [address] [place] [address] Santino Donis Social History Tobacco Use Types [...] on filedocumented in this encounter Care Teams Enterprise Resource Planning Consultant Relationship Specialty Start Date End Date Jason Vides MD [address] [place] [address] PCP - General Internal Medicine 11/23/19 documented as of this encounter
--- OUTSIDE RECORDS SUMMARY | 2024-09-28 15:17 | XMS_ITS | Encounter Summary ---
[facility] Address [address] [place] [address] Care Team Providers Care Cellophane Bath Mixer Name Role Phone Jason Vides MD Primary Care Provider [phone] Encounter Details Date Type Department Care Team Description 07/09/2020 Hospital Medical Records [address] [place] [address] Santino Donis Social History Tobacco Use Types [...] on filedocumented in this encounter Care Teams Cellophane Bath Mixer Relationship Specialty Start Date End Date Jason Vides MD [address] [place] [address] PCP - General Internal Medicine 11/23/19 documented as of this encounter
--- OUTSIDE RECORDS SUMMARY | 2024-09-28 15:17 | XMS_ITS | Encounter Summary ---
[facility] Address [address] [place] [address] Care Team Providers Care Parts Manager Name Role Phone Jelani Riddle MD Primary Care Provider Unavail able Jason Vides MD Primary Care Provider Encounter Details Date Type Department Care Team Description 06/27/2016 Research Fellow Report Medical Records [address] [place] [id number] Abstract, Provider Social History Tobacco Use Types [...] on filedocumented in this encounter Care Teams Parts Manager Relationship Specialty Start Date End Date Jelani Riddle MD PCP - General Internal Medicine 02/27/15 11/22/19 Jason Vides MD [address] [place] [address] [phone] PCP - General Internal Medicine 11/23/19 documented as of this encounter
--- OUTSIDE RECORDS SUMMARY | 2024-09-28 15:17 | XMS_ITS | Encounter Summary ---
[facility] Address [address] [place] [address] Care Team Providers Care Sock Boarder Name Role Phone Jelani Riddle MD Primary Care Provider Unavail able Jason Vides MD Primary Care Provider [phone] Encounter Details Date Type Department Care Team Description 03/03/2016 Glazier Apprentice Report Medical Records [address] [place] [address] Puja Girard Social History Tobacco Use Types [...] on filedocumented in this encounter Care Teams Sock Boarder Relationship Specialty Start Date End Date Jelani Riddle MD PCP - General Internal Medicine 02/27/15 11/22/19 Jason Vides MD [address] [place] [address] [phone] PCP - General Internal Medicine 11/23/19 documented as of this encounter
--- OUTSIDE RECORDS SUMMARY | 2024-09-28 15:17 | XMS_ITS | Encounter Summary ---
[facility] Address [address] [place] [address] Care Team Providers Care Machine Filler Servicer Name Role Phone Jason Vides MD Primary Care Provider [phone] Encounter Details Date Type Department Care Team Description 04/24/2021 Film Or Tape Librarian Report Medical Records [address] [place] [address] Ltac, [facility] Social History Tobacco Use Types Packs/Day Years [...] on filedocumented in this encounter Care Teams Machine Filler Servicer Relationship Specialty Start Date End Date Jason Vides MD [address] [place] [address] PCP - General Internal Medicine 11/23/19 documented as of this encounter
--- OUTSIDE RECORDS SUMMARY | 2024-09-28 15:17 | XMS_ITS | Encounter Summary ---
[facility] Address [address] [place] [address] Care Team Providers Care Training Consultant Name Role Phone Jason Vides MD Primary Care Provider [phone] Encounter Details Date Type Department Care Team Description 05/08/2020 Mortgage Manager Report Medical Records [address] [place] [address] Tj Sawant PA-C [address] [place] [id number] Social History Tobacco Use Types Packs/Day Years [...] on filedocumented in this encounter Care Teams Training Consultant Relationship Specialty Start Date End Date Jason Vides MD [address] [place], [place] [phone] PCP - General Internal Medicine 11/23/19 documented as of this encounter
--- OUTSIDE RECORDS SUMMARY | 2024-09-28 15:17 | XMS_ITS | Encounter Summary ---
Author Organization [facility] Address [address] [place] [address] Care Team Providers Care Rubbing Bed Operator Name Role Phone Jason Vides MD Primary Care Provider [phone] Reason for Visit * Reason Onset Date Comments Medication 10/04/2021 Encounter Details Date Type Department Care Team Description 10/04/2021 Refill Gastroenterology - [place] [address] [facility] [address] [place] [address] Richar Giron MD [address] [place] [address] [phone] Medication Social History Tobacco Use Types Packs/Day [...] on filedocumented in this encounter Care Teams Rubbing Bed Operator Relationship Specialty Start Date End Date Jason Vides MD [address] [place] [address] PCP - General Internal Medicine 11/23/19 documented as of this encounter
--- OUTSIDE RECORDS SUMMARY | 2024-09-28 15:17 | XMS_ITS | Encounter Summary ---
Author [facility] Address [address] [place] [address] Care Team Providers Care Trolley Car Mechanic Name Role Phone Jelani Riddle MD Primary Care Provider Unavail able Jason Vides MD Primary Care Provider [phone] Encounter Details Date Type Department Care Team Description 11/25/2018 Hospital Medical Records [address] [place] [id number] Joao Herrera Social History Tobacco Use Types [...] on filedocumented in this encounter Care Teams Trolley Car Mechanic Relationship Specialty Start Date End Date Jelani Riddle MD PCP - General Internal Medicine 02/27/15 11/22/19 Jason Vides MD [address] [place] [address] [phone] PCP - General Internal Medicine 11/23/19 documented as of this encounter
--- OUTSIDE RECORDS SUMMARY | 2024-09-28 15:17 | XMS_ITS | Encounter Summary ---
[facility] Address [address] [place] [address] Care Team Providers Care Local Superintendent Name Role Phone Jelani Riddle MD Primary Care Provider Unavail able Jason Vides MD Primary Care Provider Encounter Details Date Type Department Care Team Description 03/25/2016 Social Service Coordinator Report Medical Records [address] [place] [id number] Santino Donis Social History Tobacco Use Types [...] on filedocumented in this encounter Care Teams Local Superintendent Relationship Specialty Start Date End Date Jelani Riddle MD PCP - General Internal Medicine 02/27/15 11/22/19 Jason Vides MD [address] [place] [address] [phone] PCP - General Internal Medicine 11/23/19 documented as of this encounter
--- OUTSIDE RECORDS SUMMARY | 2024-09-28 15:17 | XMS_ITS | Clinical Summary ---
Author Organization [facility] [address] [place] [address] [place] [phone] Phone Care Team Providers Care Senior Java Web Developer Name Role Phone Jason Vides MD Primary Care Provider [phone] Allergies Active Allergy Reactions Criticality Noted Date [...] with BMI of 4 0.0-44.9, adult ([facility] V24, [facility] V28) 04/21/2024 Gastroesophageal reflux disease without esophagi tis 03/02/2023 CKD (chronic kidney disease) stage 3, GFR 30-59 ml/min ([facility] V24, [facility] V28) 03/06/2022 Type II diabetes mellitus wi th renal manifestations ([facility] V24, [facility] [place] V28) 01/09/2020 Asthma [...] 08/09/2024 3:00 PM EDT Office Visit Gastroenterology [facility] 175 [facility] [address] [phone] Severo Sheriff PA Anemia, unspecified type (Primary Dx); Tubular adenoma of colon; Encounter for screening colonoscopy; Chronic kidney disease, unspecified CKD stage 08/09/2024 Telephone Gastroenterology [facility] 175 [facility] 175 [facility] 200 [place] [phone] Severo Sheriff PA 07/30/2024 9:15 AM EDT Clinic Lab Collection Walk-In Clinic - [facility] [address] [place] [phone] Type 2 diabetes mellitus with chronic kidney disease, without long-term current use of insulin, unspecified CKD stage ([facility] V24, [facility] V28); Hyperlipidemia, unspecified hyperlipidemia type 07/26/2024 5:00 PM EDT Office Visit [address] [phone] Cristopher Price PA Essential hypertension, benign (Primary Dx); Hyperlipidemia, unspecified hyperlipidemia type; Type 2 diabetes mellitus with chronic kidney disease, without long-term current use of insulin, unspecified CKD stage ([facility]/HCC V24, [facility] V28); Stage 3a chronic kidney disease (CMS/HCC V24, [facility] V28); Gastroesophageal reflux disease without esophagitis; Iron deficiency anemia, unspecified iron deficiency anemia type 07/25/2024 3:30 PM EDT Office Visit [facility] Hematology Oncology [address] [place] [phone] Latrice Pineda PA Anemia, unspecified type (Primary [...] HISTORICAL BACK SURGERY KIDNEY STONE SURGERY PROCEDURE: [place] NEPHROLITHOTOMY REMOVAL CALCULUS SECTION PROCEDURE: HISTORICAL DELIVERY; [...] Description 10/31/2024 2:45 PM EDT Office Visit [facility] Hematology Oncology [address] [place] [phone] Latrice Pineda PA [address] [place] [address] 11/15/2024 8:30 AM EDT Appointment [facility] Endoscopy [address] [place] [phone] Adrienne Giron MD [address] [address] 12/06/2024 5:00 PM EDT Office Visit Adult Medicine [facility] - [address] [phone] Cristopher Price PA [address] [place] [address] 02/25/2025 8:30 AM EDT Appointment Radiology Department - [address] [phone] Health Maintenance Due Date Last Done Comments [...] current use of insulin, unspecified CKD stage (CMS/[facility] V24, CMS/[facility] V28) Hyperlipidemia, unspecified hyperlipidemia type HEMOGLOBIN A1C Routine 07/30/2024 9:36 AM EDT Type 2 diabetes mellitus with chronic kidney disease, without long-term current use of insulin, unspecified CKD stage (CMS/HCC V24, CMS/[facility] V28) [place] PROTEIN ELECTROPHORETIC FRACTIONATION & QUANTITATION SERUM Routine 07/25/2024 4:25 PM EDT Anemia, unspecified type Adenomatous polyp of colon, unspecified part of colon History of postmenopausal bleeding [place] IMMUNOFIXATION ELECTROPHORESIS SERUM Routine 07/25/2024 4:25 PM [...] LAB CHEMISTRY METHOD 07/30/2024 6:13 PM EDT [facility] Triglycerides 70 0 - 150 mg/dL LAB CHEMISTRY METHOD 07/30/2024 6:13 PM EDT [facility] HDL 79 >=40 mg/dL LAB CHEMISTRY METHOD 07/30/2024 6:13 PM EDT [facility] LDL Calculated 80 0 - 100 mg/dL LAB CHEMISTRY METHOD 07/30/2024 6:13 PM EDT [facility] VLDL Cholesterol Harjinder 14 mg/dL LAB CHEMISTRY METHOD 07/30/2024 6:13 PM EDT [facility] Non HDL Chol. (LDL+VLDL) 94 <145 mg/dL LAB CHEMISTRY METHOD 07/30/2024 6:13 PM EDT [facility] Chol/HDL Ratio 2.2 0.0 - 4.4 LAB CHEMISTRY METHOD 07/30/2024 6:13 PM EDT [facility] Blood Venous blood specimen / Unknown Venipuncture / Unknown 07/30/2024 9:36 AM EDT 07/30/2024 9:36 AM EDT Cristopher SHIELDS LAB BLOOD ORDERABLES Fi nal Result Performing Organization Address [facility]/ZIP Co de Phone Number [facility] [address] [place] [address], [place] [phone] * (ABNORMAL) Hemoglobin A1c (07/30/2024 9:36 AM EDT) Hemoglobin A1C 6.9(H) <6.5 % LAB CHEMISTRY METHOD 07/31/2024 12:07 PM EDT [facility] Mean Bld Glu Estim. 151 mg/dL LAB CHEMISTRY METHOD 07/31/2024 12:07 PM EDT [facility] Blood Venous blood specimen / Unknown Venipuncture / Unknown 07/30/2024 9:36 AM EDT 07/30/2024 9:36 AM EDT us Cristopher SHIELDS LAB BLOOD ORDERABLES Fi nal Result Performing Organization Address City/[facility]/ZIP Co de Phone Number [facility] [address] [place] [address], [place] [phone] * Pathologist Review Immunofixation (07/25/2024 4:25 PM EDT) Pathologist Interpretation Reviewed by Lurdes Harkins MD 07/26/2024 4:46 PM EDT [facility] Blood Venous blood specimen / Unknown Venipuncture / Unknown 07/25/2024 4:25 PM EDT 07/25/2024 4:48 PM EDT us Latrice SHIELDS LAB BLOOD ORDERABLES Final Re sult [facility] [address] [place] [address], [place] [phone] * PATHOLOGIST REVIEW PROTEIN ELECTROPHORESIS (07/25/2024 4:25 PM EDT) Pathologist Interpretation Reviewed by Lurdes Harkins MD 07/26/2024 4:44 PM EDT [facility] Blood Venous blood specimen / Unknown Venipuncture / Unknown 07/25/2024 4:25 PM EDT 07/25/2024 4:48 PM EDT us Latrice SHIELDS LAB BLOOD ORDERABLES Final Re sult Performing Organization Address City/[facility]/ZIP Co de Phone Number [facility] [address] [place] [address], [place] [phone] * Thyroid stimulating hormone with reflex to free t4 and free t3 (07/25/2024 4:25 PM EDT) TSH 1.47 0.40 - 4.00 mcIU/mL LAB CHEMISTRY METHOD 07/25/2024 5:46 PM EDT [facility] Blood Venous blood specimen / Unknown Venipuncture / Unknown 07/25/2024 4:25 PM EDT 07/25/2024 4:48 PM EDT Latrice SHIELDS LAB BLOOD ORDERABLES Final Re sult [facility] [address] [place] [address], * (ABNORMAL) Luis Llorens Torres-lambda free light chains, quantitative (07/25/2024 4:25 PM EDT) Pathologist [facility] Luis Llorens Torres Free Light Chain 4.15(H) 0.33 - 1.94 mg/dL 07/28/2024 12:43 PM EDT [facility] Lambda Free Light Chain 2.84(H) 0.57 - 2.63 mg/dL 07/28/2024 12:43 PM EDT [facility] Luis Llorens Torres/Lambda FLC Ratio 1.46 0.26 - 1.65 07/28/2024 12:43 PM EDT [facility] Comment: Test performed at [facility], [address] , [place], [place] ??[address] ? [phone] Sarah Bryan MD, PhD - Unix Engineer Blood Venous blood specimen / Unknown Venipuncture / Unknown 07/25/2024 4:25 PM EDT 07/25/2024 4:49 PM EDT Latrice SHIELDS LAB BLOOD ORDERABLES Final Re sult [facility] [address] [place] [address] * (ABNORMAL) CBC auto differential (07/25/2024 4:25 PM EDT) Pathologist [facility] WBC 8.5 4.8 - 10.8 K/mcL LAB HEMETOLOGY METHOD 07/25/2024 5:07 PM EDT [facility] RBC 4.20 3.80 - 4.80 M/mcL LAB HEMETOLOGY METHOD 07/25/2024 5:07 PM EDT [facility] Hemoglobin 10.1(L) 11.5 - 16.0 g/dL LAB HEMETOLOGY METHOD 07/25/2024 5:07 PM EDT [facility] Hematocrit 33.9(L) 35.0 - 47.0 % LAB HEMETOLOGY METHOD 07/25/2024 5:[facility] MCV 80.3 79.0 - 98.0 FL LAB HEMETOLOGY METHOD 07/25/2024 5:07 PM [facility] MCH 23.9(L) 27.0 - 32.0 pcg LAB HEMETOLOGY METHOD 07/25/2024 5:07 PM [facility] MCHC 29.8(L) 32.0 - 37.0 g/dL LAB HEMETOLOGY METHOD 07/25/2024 5:07 PM [facility] RDW 18.7(H) 11.0 - 15.0 % LAB HEMETOLOGY METHOD 07/25/2024 5:07 PM [facility] Platelets 290 130 - 400 K/mcL LAB HEMETOLOGY METHOD 07/25/2024 5:07 PM [facility] MPV 10.4 7.0 - 11.0 FL LAB HEMETOLOGY METHOD 07/25/2024 5:07 PM [facility] NRBC 0.0 <1.0 % LAB HEMETOLOGY METHOD 07/25/2024 5:07 PM [facility] NRBC Absolute 0.00 <0.10 K/mcL LAB HEMETOLOGY METHOD 07/25/2024 5:07 PM [facility] Neutrophils Relative 57.5 % LAB HEMETOLOGY METHOD 07/25/2024 5:07 PM [facility] Lymphocytes Relative 29.7 % LAB HEMETOLOGY METHOD 07/25/2024 5:07 PM [facility] Monocytes Relative 8.9 % LAB HEMETOLOGY METHOD 07/25/2024 5:07 PM [facility] Eosinophils Relative 2.0 % LAB HEMETOLOGY METHOD 07/25/2024 5:07 PM EDT [facility] Basophils Relative 0.8 % LAB HEMETOLOGY METHOD 07/25/2024 5:07 PM EDT [facility] Immature Granulocytes Relative 1.1 % LAB HEMETOLOGY METHOD 07/25/2024 5:07 PM EDT [facility] Neutrophils Absolute 4.91 1.50 - 7.00 K/mcL LAB HEMETOLOGY METHOD 07/25/2024 5:07 PM EDT [facility] Lymphocytes Absolute 2.53 1.00 - 5.00 K/mcL LAB HEMETOLOGY METHOD 07/25/2024 5:07 PM EDT [facility] Monocytes Absolute 0.76 0.20 - 1.00 K/mcL LAB HEMETOLOGY METHOD 07/25/2024 5:07 PM EDT [facility] Eosinophils Absolute 0.17 0.00 - 0.50 K/mcL LAB HEMETOLOGY METHOD 07/25/2024 5:07 PM EDT [facility] Basophils Absolute 0.07 0.00 - 0.20 K/mcL LAB HEMETOLOGY METHOD 07/25/2024 5:07 PM EDT [facility] Immature Granulocytes Absolute 0.09(H) 0.00 - 0.03 K/mcL LAB HEMETOLOGY METHOD 07/25/2024 5:07 PM EDT [facility] Blood Venous blood specimen / Unknown Venipuncture / Unknown 07/25/2024 4:25 PM EDT 07/25/2024 4:48 PM EDT us Latrice SHIELDS LAB BLOOD ORDERABLES Final Re sult [facility] [address] [place] [address], * Hemoglobin electrophoresis (07/25/2024 4:25 PM EDT) [...] seen on hemoglobin electrophoresis. Test performed at [facility], [address] [place], [place] ??[address] ? [phone] Sarah Bryan MD, PhD - Unix Engineer Blood Venous blood specimen / Unknown Venipuncture / Unknown 07/25/2024 4:25 PM EDT 07/25/2024 4:48 PM EDT Latrice Pineda PA LAB BLOOD ORDERABLES Final Re sult [facility] [address] [place] [address] * (ABNORMAL) Erythropoietin (07/25/2024 4:25 PM EDT) Erythropoietin 24.8(H) 2.6 - 18.5 mIU/mL 07/28/2024 2:53 PM EDT [facility] Comment: Test performed at [facility], [address] [place], [place] ??[address] ? [phone] Sarah Bryan MD, PhD - Unix Engineer Blood Venous blood specimen / Unknown Venipuncture / Unknown 07/25/2024 4:25 PM EDT 07/25/2024 4:49 PM EDT us Latrice SHIELDS LAB BLOOD ORDERABLES Final Re sult [facility] [address] [place] [address] * Iron and TIBC (07/25/2024 4:25 PM EDT) Iron 128 40 - 150 mcg/dL LAB CHEMISTRY METHOD 07/25/2024 5:38 PM EDT [facility] TIBC 361 250 - 450 mcg/dL LAB CHEMISTRY METHOD 07/25/2024 5:38 PM EDT [facility] Iron Saturation 35 15 - 50 % LAB CHEMISTRY METHOD 07/25/2024 5:38 PM EDT [facility] Blood Venous blood specimen / Unknown Venipuncture / Unknown 07/25/2024 4:25 PM EDT 07/25/2024 4:48 PM EDT Latrice SHIELDS LAB BLOOD ORDERABLES Final Re sult Performing Organization Address City/[facility]/ZIP Co de Phone Number [facility] [address] [place] [address], * (ABNORMAL) Reticulocyte count (07/25/2024 4:25 PM EDT) Retic Ct Abs 0.080 0.030 - 0.090 M/mcL LAB HEMETOLOGY METHOD 07/25/2024 5:07 PM EDT [facility] Retic Ct Pct 1.9(H) 0.7 - 1.7 % LAB HEMETOLOGY METHOD 07/25/2024 5:07 PM EDT [facility] Immature Retic Fract 24.3(H) 2.3 - 15.9 % LAB HEMETOLOGY METHOD 07/25/2024 5:07 PM EDT [facility] Reticulocyte Hemoglobin 28.2(L) >29.0 pcg LAB HEMETOLOGY METHOD 07/25/2024 5:07 PM EDT [facility] Blood Venous blood specimen / Unknown Venipuncture / Unknown 07/25/2024 4:25 PM EDT 07/25/2024 4:48 PM EDT Latrice SHIELDS LAB BLOOD ORDERABLES Final Re sult Performing Organization Address City/[facility]/ZIP Co de Phone Number [facility] [address] [place] [address], [place] [phone] * Immunofixation electrophoresis serum (07/25/2024 4:25 PM EDT) [facility] Immunofixation Result, Serum No monoclonal immunoglobulins detected. LAB CHEMISTRY METHOD 07/26/2024 4:46 PM EDT [facility] Blood Venous blood specimen / Unknown Venipuncture / Unknown 07/25/2024 4:25 PM EDT 07/25/2024 4:48 PM EDT Latrice SHIELDS LAB BLOOD ORDERABLES Final Re sult Performing Organization Address City/[facility]/ZIP Co de Phone Number [facility] [address] [place] [address], [place] [phone] * (ABNORMAL) Immunoglobulins IgG, IgA, IgM (07/25/2024 4:25 PM EDT) [facility] Total IgG 1,360 549 - 1,584 mg/dL LAB CHEMISTRY METHOD 07/25/2024 5:50 PM EDT [facility] IgA 476(H) 61 - 348 mg/dL LAB CHEMISTRY METHOD 07/25/2024 5:50 PM EDT [facility] IgM 116 23 - 259 mg/dL LAB CHEMISTRY METHOD 07/25/2024 5:50 PM EDT [facility] Blood Venous blood specimen / Unknown Venipuncture / Unknown 07/25/2024 4:25 PM EDT 07/25/2024 4:48 PM EDT us Latrice SHIELDS LAB BLOOD ORDERABLES Final Re sult [facility] [address] [place] [address], [place] [phone] * Protein electrophoresis, serum (07/25/2024 4:25 PM EDT) Total Protein 7.2 6.0 - 8.0 g/dL LAB CHEMISTRY METHOD 07/26/2024 4:44 PM EDT [facility] Albumin, Serum 3.2 2.9 - 4.1 g/dL LAB CHEMISTRY METHOD 07/26/2024 4:44 PM EDT [facility] Alpha 1 Globulin (g/dL) 0.2 0.1 - 0.5 g/dL LAB CHEMISTRY METHOD 07/26/2024 4:44 PM EDT [facility] Alpha 2 Globulin (g/dL) 1.1 0.7 - 1.5 g/dL LAB CHEMISTRY METHOD 07/26/2024 4:44 PM EDT [facility] Beta (g/dL) 1.1 0.7 - 1.5 g/dL LAB CHEMISTRY METHOD 07/26/2024 4:44 PM EDT [facility] Gamma Globulin (g/dL) 1.6 0.7 - 1.9 g/dL LAB CHEMISTRY METHOD 07/26/2024 4:44 PM EDT [facility] SPEP Interpretation Essentially normal pattern. No M-Braydon seen. LAB CHEMISTRY METHOD 07/26/2024 4:44 PM EDT [facility] Blood Venous blood specimen / Unknown Venipuncture / Unknown 07/25/2024 4:25 PM EDT 07/25/2024 4:48 PM EDT us Latrice SHIELDS LAB BLOOD ORDERABLES Final Re sult [facility] [address] [place] [address], [place] [phone] * Protein, total (07/25/2024 4:25 PM EDT) [facility] Total Protein 7.2 6.0 - 8.0 g/dL LAB CHEMISTRY METHOD 07/25/2024 5:40 PM EDT [facility] Blood Venous blood specimen / Unknown Venipuncture / Unknown 07/25/2024 4:25 PM EDT 07/25/2024 4:48 PM EDT Latrice SHIELDS LAB BLOOD ORDERABLES Final Re sult Performing Organization Address [facility] Co de Phone Number [facility] [address] [place] [address], [place] [phone] * Lactate dehydrogenase (07/25/2024 4:25 PM EDT) [facility] LDH 186 120 - 246 unit/L LAB CHEMISTRY METHOD 07/25/2024 5:38 PM EDT [facility] Blood Venous blood specimen / Unknown Venipuncture / Unknown 07/25/2024 4:25 PM EDT 07/25/2024 4:48 PM EDT Latrice SHIELDS LAB BLOOD ORDERABLES Final Re sult [facility] [address] [place] [address], [place] [phone] * (ABNORMAL) Haptoglobin (07/25/2024 4:25 PM EDT) [facility] Haptoglobin 263(H) 16 - 200 mg/dL LAB CHEMISTRY METHOD 07/25/2024 5:38 PM EDT [facility] Blood Venous blood specimen / Unknown Venipuncture / Unknown 07/25/2024 4:25 PM EDT 07/25/2024 4:48 PM EDT Latrice SHIELDS LAB BLOOD ORDERABLES Final Re sult Performing Organization Address [facility]/ZIP Co de Phone Number [facility] [address] [place] [address], [place] [phone] * Folate (07/25/2024 4:25 PM EDT) [facility] Folate 12.6 2.8 - 17.0 ng/ml LAB CHEMISTRY METHOD 07/25/2024 5:50 PM EDT [facility] Blood Venous blood specimen / Unknown Venipuncture / Unknown 07/25/2024 4:25 PM EDT 07/25/2024 4:48 PM EDT Latrice SHIELDS LAB BLOOD ORDERABLES Final Re sult Performing Organization Address [facility]/ZIP Co de Phone Number [facility] [address] [place] [address], [place] [phone] * Ferritin (07/25/2024 4:25 PM EDT) [facility] Ferritin 17 8 - 252 ng/mL LAB CHEMISTRY METHOD 07/25/2024 5:50 PM EDT [facility] Blood Venous blood specimen / Unknown Venipuncture / Unknown 07/25/2024 4:25 PM EDT 07/25/2024 4:48 PM EDT Latrice SHIELDS LAB BLOOD ORDERABLES Final Re sult Performing Organization Address City/[facility]/ZIP Co de Phone Number [facility] [address] [place] [address], [place] [phone] * (ABNORMAL) Comprehensive metabolic panel (07/25/2024 4:25 PM EDT) Sodium 138 133 - 145 mmol/L LAB CHEMISTRY METHOD 07/25/2024 5:38 PM [facility] Potassium 3.4(L) 3.5 - 5.5 mmol/L LAB CHEMISTRY METHOD 07/25/2024 5:38 PM [facility] Chloride 102 96 - 110 mmol/L LAB CHEMISTRY METHOD 07/25/2024 5:38 PM [facility] CO2 28 21 - 32 mmol/L LAB CHEMISTRY METHOD 07/25/2024 5:38 PM [facility] Anion Gap 8 3 - 11 LAB CHEMISTRY METHOD 07/25/2024 5:38 PM [facility] Glucose 109(H) 70 - 100 mg/dL LAB CHEMISTRY METHOD 07/25/2024 5:38 PM [facility] BUN 15 5 - 25 mg/dL LAB CHEMISTRY METHOD 07/25/2024 5:38 PM [facility] Creatinine 1.12(H) 0.50 - 1.10 mg/dL LAB CHEMISTRY METHOD 07/25/2024 5:38 PM [facility] eGFR 54(L) >=60 mL/min/1. 73m2 LAB CHEMISTRY METHOD 07/25/2024 5:38 PM [facility] Comment:Calculation based on the??Chronic Kidney Disease Epidemiology Collaboration (CKD-EPI) equation refit??without adjustment for race. BUN/Creatinine Ratio 13.4 LAB CHEMISTRY METHOD 07/25/2024 5:38 PM [facility] Calcium 8.6 8.5 - 10.5 mg/dL LAB CHEMISTRY METHOD 07/25/2024 5:38 PM [facility] AST (SGOT) 26 10 - 42 unit/L LAB CHEMISTRY METHOD 07/25/2024 5:38 PM [facility] ALT (SGPT) 25 10 - 60 unit/L LAB CHEMISTRY METHOD 07/25/2024 5:38 PM [facility] Alkaline Phosphatase 117 42 - 121 unit/L LAB CHEMISTRY METHOD 07/25/2024 5:38 PM EDT [facility] Total Protein 7.2 6.0 - 8.0 g/dL LAB CHEMISTRY METHOD 07/25/2024 5:38 PM EDT [facility] Albumin 3.3 3.2 - 5.0 g/dL LAB CHEMISTRY METHOD 07/25/2024 5:38 PM EDT [facility] Total Bilirubin 0.3 0.0 - 1.4 mg/dL LAB CHEMISTRY METHOD 07/25/2024 5:38 PM EDT [facility] Blood Venous blood specimen / Unknown Venipuncture / Unknown 07/25/2024 4:25 PM EDT 07/25/2024 4:48 PM EDT Latrice SHIELDS LAB BLOOD ORDERABLES Final Re sult [facility] [address] [place] [address], * SCREENING MAMMOGRAPHY BI 2-VIEW BREAST INC [...] Breast cancer risk category Low (<15%) Location: [facility], [address] [place] [address], [id number], [phone] Procedure Note Latrice Garcia MD - 03/02/2024 [...] Breast cancer risk category Low (<15%) Location: [facility], [address] [place] [address], [address], [phone] Result [facility] Jason Vides MD IMG XR PROCEDURES Final Result * Urine Albumin Creatinine Ratio (09/15/2023) [facility] Urine Albumin Creatinine Ratio Abstracted Result [facility] Provider HEALTH MAINTENANCE Final Result * Hepatitis C Screening (09/15/2023) [facility] Hepatitis C Screening Abstracted Result [facility] HEALTH MAINTENANCE Final Result * Colonoscopy (10/18/2021) [facility] Colonoscopy No Interpretation , Abstracted Anatomical Region Laterality Modality Other Result [facility] HEALTH MAINTENANCE Final Result * Cervical Cancer Screening: HPV (06/10/2016) Cervical Cancer Screening: HPV Negative, Abstracted us Historical Provider HEALTH MAINTENANCE Final Result from Last 3 Months or Most Recently Relevant to [place] [id number] [facility] Care Teams Senior Java Web Developer Relationship Specialty Start Date End Date Jason Vides MD [address] [place] [address] [phone] PCP - General Internal Medicine 11/23/19
== END 2024-09-28 14:33 | disposition home or self-care (01) ==
LOC: HO.LNP 14:32
PROVIDERS: Visit Provider Obstetrics & Gynecology
DX: N95.0 Postmenopausal bleeding (principal); D25.9 Leiomyoma of uterus, unspecified
CPT/HCPCS: 58100; 88305

== ENCOUNTER 2024-09-28 14:32 | Outpatient (AMB) | payer BC, SELFPAY ==
[2024-09-28 14:36] VITALS: BMI 40.2
--- NOTE | 2024-09-28 14:36 | A.OFFVIS_ITS ---
Vital Signs 09/28/24 14:36 09/28/24 14:41 Height 5 ft 2 in 5 ft 2 in Weight 220 lb 220 lb BMI 40.2 40.2 Intake Visit Reasons: Ultra sound follow up Allergies morphine Allergy (Intermediate, Verified 09/21/24 07:57) Dizziness HPI Comments Details: Presenting for ultrasound follow-up regarding postmenopausal bleeding. Pelvic ultrasound showed the following: Transabdominal scanning performed for overall anatomy. Transvaginal scanning performed for additional detail. Uterus is 9.1 cm length. Uterine fibroids: 2 x 2.1 x 2.3 cm, 3.3 x 3.8 x 3 cm, 0.9 x 0.9 x 1 cm, 2.6 x 2.5 x 2.7 cm No endometrial lesion, 6.0 mm thickness. Right ovary is not seen. Possible Left ovary 1.8 x 1.3 x 1.9 cm. Normal color Doppler with arterial/venous spectral tracing of possible left ovary. No free fluid. 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 Sexual orientation: Straight/Heterosexual Gender identity: Female Review of Systems Const All systems reviewed & are unremarkable except as noted in HPI and below Reports as per HPI and Reports no additional complaints GI Reports no additional complaints Reports no additional complaints Physical Exam Vital Signs: BMI result Body Mass Index 40.2 Office Procedures Endometrial Biopsy Details: The patient was counseled regarding the indication and benefits of endometrial sampling to rule out endometrial pathology including not limited to endometrial hyperplasia or endometrial cancer and others; The alternatives (Either do no thing vs. hysteroscopy D&C) & the risks were discussed with the patient including but not limited: pain, uterine perforation, bleeding, infection, possible injury to bladder, bowel, ureter, possible need for blood transfusion with all its possible risks. The patient verbalized understanding all questions answered and signed consent. The patient was placed into the dorsal lithotomy position; a speculum was inserted in the vagina. Using aseptic technique for the procedure, the cervix was cleansed with Betadine. The anterior lip of the cervix was grasped with a single tooth tenaculum. The uterus was sounded to 7 cm with a 4 mm Pipelle was used. Tissues samples were obtained and placed in formalin, in a patient labeled container and sent to the pathology department. At the end of the procedure, there was minimal bleeding noted The patient tolerated the procedure well and was discharged in good condition with the following instructions: Nothing in the vagina until the bleeding stops. No sex until the bleeding stops, to call if any of the following occurs: fever (>100.4), flu-like symptoms, abdominal pain, heavy bleeding, four smelling vaginal discharge. The patient was instructed to schedule a Follow up appointment in 2 weeks to discuss pathology results of the biopsy and treatment options. This note was generated with a voice recognition program. Some errors may have been overlooked during the review of this note. Sometimes these errors may affect the content or meaning of a given sentence. 31177-Nscavxwvkrz Biopsy Assessment & Plan Assessment & Plan (1) Postmenopausal bleeding: Comment: Thick endometrium 6 mm Code(s): N95.0 - Postmenopausal bleeding Category: Medical Plan: Discussed with the patient the pelvic ultrasound findings, the endometrial stripe thickenss measured by ultrasound was more than 4mm. The negative predictive value, positive predictive value, Sensitivity, specificity of using ultrasound measurement of endometrial stripe to detecting endometrial pathology including hyperplasia , polyp or cancer were discussed with the patient. Recommended to the patient that the next step is an endometrial sampling via hysteroscopy D&C possible polypectomy versus endometrial biopsy to r/o endometrial pathology including hyperplasia or cancer. All the pros and cons risks and benefits of each approach were discussed with the patient, endometrial biopsy being less invasive, office procedure with less sensitivity and inability diagnose a polyp and removal versus hysteroscopy done under anesthesia more invasive more sensitive to endometrial cancer and possibility of diagnosing and endometrial polyp with the possibility of polypectomy. All questions were answered pt verbalized understanding and decided to proceed with endometrial biopsy. EMB done, see procedure note (2) Uterine myoma: Code(s): D25.9 - Leiomyoma of uterus, unspecified Category: Medical Plan: Discussed with the patient the findings on pelvic ultrasound & the risk of myosarcoma; in addition reviewed with the patient that malignancy and pre malignancy cannot be ruled out without hysterectomy for pathological evaluation ; furthermore, explained to the patient the limitation of pelvic ultrasound and endometrial biopsy in the setting. Discussed with the patient the options of treatment including expectant management versus hysterectomy; the pros and cons, risks benefits of each approach were discussed with the patient including the fact that in cases of myosarcoma, surgical treatment can lead to early diagnosis and positively affects the prognosis; after further discussion, the patient decided to proceed with expectant management. Will repeat pelvic ultrasound periodically. Instructions given to patient to call in case any of the following occurs: press ure symptoms, abnormal uterine bleeding, pelvic pain; and to schedule a six- months pelvic ultrasound (order placed) and a follow-up appointment . All questions answered, the patient verbalized understanding and agreed with the plan . Orders: Orders US pelvic and transvaginal 6 Months D25.9 - Leiomyoma of uterus, unspecified AMB Endometrial Biopsy Today N95.0 - Postmenopausal bleeding Coding Level of Care Code Est Pt Level 3 (59981) Procedure Only Diagnoses Postmenopausal bleeding N95.0 Uterine myoma D25.9 CPT Codes Endometrial Biopsy - CPT: 05760-Kwcaclxjaua Biopsy ([id number])
--- OUTSIDE RECORDS SUMMARY | 2024-09-28 14:36 | XMS_ITS | Encounter Summary ---
Author Organization [facility] Address [address] [place] [address] Care Team Providers Care Research Program Coordinator Name Role Phone Jason Vides MD Primary Care Provider [phone] Encounter Details Date Type Department Care Team Description 01/24/2021 Pt. Non Urgent Medic al Question Adult Medicine [address] [id number] Munira Kennedy PA Social History Tobacco Use [...] way this can be refilled over to [facility] my recent appointment for January 17 was [...] on filedocumented in this encounter Care Teams Research Program Coordinator Relationship Specialty Start Date End Date Jason Vides MD [address] [place] [id number] PCP - General Internal Medicine 11/23/19 documented as of this encounter
--- OUTSIDE RECORDS SUMMARY | 2024-09-28 14:36 | XMS_ITS | Clinical Summary ---
Author Organization [facility] [address] [place] [address] [place] [phone] Phone Care Team Providers Care Crimping Machine Operator Name Role Phone Jason Vides MD Primary Care Provider [phone] Allergies Active Allergy Reactions Criticality Noted Date [...] obesity with BMI of 4 0.0-44.9, adult ([facility] V24, [facility] V28) 04/21/2024 Gastroesophageal reflux disease without esophagi tis 03/02/2023 CKD (chronic kidney disease) stage 3, GFR 30-59 ml/min ([facility] V24, [facility] V28) 03/06/2022 Type II diabetes mellitus wi th renal manifestations ([facility] V24, [facility] V28) 01/09/2020 Asthma in adult 05/03/2015 Hyperlipidemia [...] 08/09/2024 3:00 PM EDT Office Visit Gastroenterology [facility] 175 [facility] [address] [phone] Severo Sheriff PA Anemia, unspecified type (Primary Dx); Tubular adenoma of colon; Encounter for screening colonoscopy; Chronic kidney disease, unspecified CKD stage 08/09/2024 Telephone Gastroenterology [facility] 175 [facility] 175 [facility] [address] [place] [phone] Severo Sheriff PA 07/30/2024 9:15 AM EDT Clinic Lab Collection Walk-In Clinic - [facility] [address] [place] [phone] Type 2 diabetes mellitus with chronic kidney disease, without long-term current use of insulin, unspecified CKD stage ([facility] V24, [facility] V28); Hyperlipidemia, unspecified hyperlipidemia type 07/26/2024 5:00 PM EDT Office Visit [address] [phone] Cristopher Price PA Essential hypertension, benign (Primary Dx); Hyperlipidemia, unspecified hyperlipidemia type; Type 2 diabetes mellitus with chronic kidney disease, without long-term current use of insulin, unspecified CKD stage ([facility]/HCC V24, [facility] V28); Stage 3a chronic kidney disease (CMS/HCC V24, [facility] V28); Gastroesophageal reflux disease without esophagitis; Iron deficiency anemia, unspecified iron deficiency anemia type 07/25/2024 3:30 PM EDT Office Visit [facility] Hematology Oncology [address] [place] [phone] Latrice Pineda PA Anemia, unspecified type (Primary [...] HISTORICAL BACK SURGERY KIDNEY STONE SURGERY PROCEDURE: [place] NEPHROLITHOTOMY REMOVAL CALCULUS SECTION PROCEDURE: HISTORICAL DELIVERY; [...] Description 10/31/2024 2:45 PM EDT Office Visit [facility] Hematology Oncology [address] [place] [phone] Latrice Pineda PA [address] [place] [address] 11/15/2024 8:30 AM EDT Appointment [facility] Endoscopy [address] [place] [phone] Adrienne Giron MD [address] [address] 12/06/2024 5:00 PM EDT Office Visit Adult Medicine [facility] - [address] [phone] Cristopher Price PA [address] [place] [address] 02/25/2025 8:30 AM EDT Appointment Radiology Department - [address] [phone] Health Maintenance Due Date Last Done Comments [...] current use of insulin, unspecified CKD stage ([facility] V24, [facility] V28) Hyperlipidemia, unspecified hyperlipidemia type HEMOGLOBIN A1C Routine 07/30/2024 9:36 AM EDT Type 2 diabetes mellitus with chronic kidney disease, without long-term current use of insulin, unspecified CKD stage (CMS/HCC V24, [facility] V28) NH PROTEIN ELECTROPHORETIC FRACTIONATION & QUANTITATION SERUM Routine 07/25/2024 4:25 PM EDT Anemia, unspecified type Adenomatous polyp of colon, unspecified part of colon History of postmenopausal bleeding NH IMMUNOFIXATION ELECTROPHORESIS SERUM Routine 07/25/2024 4:25 PM [...] LAB CHEMISTRY METHOD 07/30/2024 6:13 PM EDT [facility] Triglycerides 70 0 - 150 mg/dL LAB CHEMISTRY METHOD 07/30/2024 6:13 PM EDT [facility] HDL 79 >=40 mg/dL LAB CHEMISTRY METHOD 07/30/2024 6:13 PM EDT [facility] LDL Calculated 80 0 - 100 mg/dL LAB CHEMISTRY METHOD 07/30/2024 6:13 PM EDT [facility] VLDL Cholesterol Harjinder 14 mg/dL LAB CHEMISTRY METHOD 07/30/2024 6:13 PM EDT [facility] Non HDL Chol. (LDL+VLDL) 94 <145 mg/dL LAB CHEMISTRY METHOD 07/30/2024 6:13 PM EDT [facility] Chol/HDL Ratio 2.2 0.0 - 4.4 LAB CHEMISTRY METHOD 07/30/2024 6:13 PM EDT [facility] Blood Venous blood specimen / Unknown Venipuncture / Unknown 07/30/2024 9:36 AM EDT 07/30/2024 9:36 AM EDT Cristopher SHIELDS LAB BLOOD ORDERABLES Fi nal Result Performing Organization Address [facility]/ZIP Co de Phone Number [facility] [address] [place] [address], [place] [phone] * (ABNORMAL) Hemoglobin A1c (07/30/2024 9:36 AM EDT) Hemoglobin A1C 6.9(H) <6.5 % LAB CHEMISTRY METHOD 07/31/2024 12:07 PM EDT [facility] Mean Bld Glu Estim. 151 mg/dL LAB CHEMISTRY METHOD 07/31/2024 12:07 PM EDT [facility] Blood Venous blood specimen / Unknown Venipuncture / Unknown 07/30/2024 9:36 AM EDT 07/30/2024 9:36 AM EDT us Cristopher SHIELDS LAB BLOOD ORDERABLES Fi nal Result Performing Organization Address City/[facility]/ZIP Co de Phone Number [facility] [address] [place] [address], [place] [phone] * Pathologist Review Immunofixation (07/25/2024 4:25 PM EDT) Pathologist Interpretation Reviewed by Lurdes Harkins MD 07/26/2024 4:46 PM EDT [facility] Blood Venous blood specimen / Unknown Venipuncture / Unknown 07/25/2024 4:25 PM EDT 07/25/2024 4:48 PM EDT us Latrice SHIELDS LAB BLOOD ORDERABLES Final Re sult [facility] [address] [place] [address], [place] [phone] * PATHOLOGIST REVIEW PROTEIN ELECTROPHORESIS (07/25/2024 4:25 PM EDT) Pathologist Interpretation Reviewed by Lurdes Harkins MD 07/26/2024 4:44 PM EDT [facility] Blood Venous blood specimen / Unknown Venipuncture / Unknown 07/25/2024 4:25 PM EDT 07/25/2024 4:48 PM EDT us Latrice SHIELDS LAB BLOOD ORDERABLES Final Re sult Performing Organization Address City/[facility]/ZIP Co de Phone Number [facility] [address] [place] [address], [place] [phone] * Thyroid stimulating hormone with reflex to free t4 and free t3 (07/25/2024 4:25 PM EDT) TSH 1.47 0.40 - 4.00 mcIU/mL LAB CHEMISTRY METHOD 07/25/2024 5:46 PM EDT [facility] Blood Venous blood specimen / Unknown Venipuncture / Unknown 07/25/2024 4:25 PM EDT 07/25/2024 4:48 PM EDT Latrice SHIELDS LAB BLOOD ORDERABLES Final Re sult [facility] [address] [place] [address], * (ABNORMAL) [place]-lambda free light chains, quantitative (07/25/2024 4:25 PM EDT) Pathologist [facility] [place] Free Light Chain 4.15(H) 0.33 - 1.94 mg/dL 07/28/2024 12:43 PM EDT [facility] Lambda Free Light Chain 2.84(H) 0.57 - 2.63 mg/dL 07/28/2024 12:43 PM EDT [facility] [place]/Lambda FLC Ratio 1.46 0.26 - 1.65 07/28/2024 12:43 PM EDT [facility] Comment: Test performed at [facility], [address] , [place], [place] ??[address] ? [phone] Sarah Bryan MD, PhD - Business Controller Blood Venous blood specimen / Unknown Venipuncture / Unknown 07/25/2024 4:25 PM EDT 07/25/2024 4:49 PM EDT Latrice SHIELDS LAB BLOOD ORDERABLES Final Re sult [facility] [address] [place] [address] * (ABNORMAL) CBC auto differential (07/25/2024 4:25 PM EDT) Pathologist [facility] WBC 8.5 4.8 - 10.8 K/mcL LAB HEMETOLOGY METHOD 07/25/2024 5:07 PM EDT [facility] RBC 4.20 3.80 - 4.80 M/mcL LAB HEMETOLOGY METHOD 07/25/2024 5:07 PM EDT [facility] Hemoglobin 10.1(L) 11.5 - 16.0 g/dL LAB HEMETOLOGY METHOD 07/25/2024 5:07 PM EDT [facility] Hematocrit 33.9(L) 35.0 - 47.0 % LAB HEMETOLOGY METHOD 07/25/2024 5[facility] MCV 80.3 79.0 - 98.0 FL LAB HEMETOLOGY METHOD 07/25/2024 5:07 PM [facility] MCH 23.9(L) 27.0 - 32.0 pcg LAB HEMETOLOGY METHOD 07/25/2024 5:07 PM [facility] MCHC 29.8(L) 32.0 - 37.0 g/dL LAB HEMETOLOGY METHOD 07/25/2024 5:07 PM [facility] RDW 18.7(H) 11.0 - 15.0 % LAB HEMETOLOGY METHOD 07/25/2024 5:07 PM [facility] Platelets 290 130 - 400 K/mcL LAB HEMETOLOGY METHOD 07/25/2024 5:07 PM [facility] MPV 10.4 7.0 - 11.0 FL LAB HEMETOLOGY METHOD 07/25/2024 5:07 PM [facility] NRBC 0.0 <1.0 % LAB HEMETOLOGY METHOD 07/25/2024 5:07 PM [facility] NRBC Absolute 0.00 <0.10 K/mcL LAB HEMETOLOGY METHOD 07/25/2024 5:07 PM [facility] Neutrophils Relative 57.5 % LAB HEMETOLOGY METHOD 07/25/2024 5:07 PM [facility] Lymphocytes Relative 29.7 % LAB HEMETOLOGY METHOD 07/25/2024 5:07 PM [facility] Monocytes Relative 8.9 % LAB HEMETOLOGY METHOD 07/25/2024 5:07 PM [facility] Eosinophils Relative 2.0 % LAB HEMETOLOGY METHOD 07/25/2024 5:07 PM EDT [facility] Basophils Relative 0.8 % LAB HEMETOLOGY METHOD 07/25/2024 5:07 PM EDT [facility] Immature Granulocytes Relative 1.1 % LAB HEMETOLOGY METHOD 07/25/2024 5:07 PM EDT [facility] Neutrophils Absolute 4.91 1.50 - 7.00 K/mcL LAB HEMETOLOGY METHOD 07/25/2024 5:07 PM EDT [facility] Lymphocytes Absolute 2.53 1.00 - 5.00 K/mcL LAB HEMETOLOGY METHOD 07/25/2024 5:07 PM EDT [facility] Monocytes Absolute 0.76 0.20 - 1.00 K/mcL LAB HEMETOLOGY METHOD 07/25/2024 5:07 PM EDT [facility] Eosinophils Absolute 0.17 0.00 - 0.50 K/mcL LAB HEMETOLOGY METHOD 07/25/2024 5:07 PM EDT [facility] Basophils Absolute 0.07 0.00 - 0.20 K/mcL LAB HEMETOLOGY METHOD 07/25/2024 5:07 PM EDT [facility] Immature Granulocytes Absolute 0.09(H) 0.00 - 0.03 K/mcL LAB HEMETOLOGY METHOD 07/25/2024 5:07 PM EDT [facility] Blood Venous blood specimen / Unknown Venipuncture / Unknown 07/25/2024 4:25 PM EDT 07/25/2024 4:48 PM EDT us Latrice SHIELDS LAB BLOOD ORDERABLES Final Re sult [facility] [address] [place] [address], * Hemoglobin electrophoresis (07/25/2024 4:25 PM EDT) [...] seen on hemoglobin electrophoresis. Test performed at [facility], [address] [place], [place] ??[address] ? [phone] Sarah Bryan MD, PhD - Business Controller Blood Venous blood specimen / Unknown Venipuncture / Unknown 07/25/2024 4:25 PM EDT 07/25/2024 4:48 PM EDT Latrice Pineda PA LAB BLOOD ORDERABLES Final Re sult [facility] [address] [place] [address] * (ABNORMAL) Erythropoietin (07/25/2024 4:25 PM EDT) Erythropoietin 24.8(H) 2.6 - 18.5 mIU/mL 07/28/2024 2:53 PM EDT [facility] Comment: Test performed at [facility], [address] [place], [place] ??[address] ? [phone] Sarah Bryan MD, PhD - Business Controller Blood Venous blood specimen / Unknown Venipuncture / Unknown 07/25/2024 4:25 PM EDT 07/25/2024 4:49 PM EDT us Latrice SHIELDS LAB BLOOD ORDERABLES Final Re sult [facility] [address] [place] [address] * Iron and TIBC (07/25/2024 4:25 PM EDT) Iron 128 40 - 150 mcg/dL LAB CHEMISTRY METHOD 07/25/2024 5:38 PM EDT [facility] TIBC 361 250 - 450 mcg/dL LAB CHEMISTRY METHOD 07/25/2024 5:38 PM EDT [facility] Iron Saturation 35 15 - 50 % LAB CHEMISTRY METHOD 07/25/2024 5:38 PM EDT [facility] Blood Venous blood specimen / Unknown Venipuncture / Unknown 07/25/2024 4:25 PM EDT 07/25/2024 4:48 PM EDT Latrice SHIELDS LAB BLOOD ORDERABLES Final Re sult Performing Organization Address City/[facility]/ZIP Co de Phone Number [facility] [address] [place] [address], * (ABNORMAL) Reticulocyte count (07/25/2024 4:25 PM EDT) Retic Ct Abs 0.080 0.030 - 0.090 M/mcL LAB HEMETOLOGY METHOD 07/25/2024 5:07 PM EDT [facility] Retic Ct Pct 1.9(H) 0.7 - 1.7 % LAB HEMETOLOGY METHOD 07/25/2024 5:07 PM EDT [facility] Immature Retic Fract 24.3(H) 2.3 - 15.9 % LAB HEMETOLOGY METHOD 07/25/2024 5:07 PM EDT [facility] Reticulocyte Hemoglobin 28.2(L) >29.0 pcg LAB HEMETOLOGY METHOD 07/25/2024 5:07 PM EDT [facility] Blood Venous blood specimen / Unknown Venipuncture / Unknown 07/25/2024 4:25 PM EDT 07/25/2024 4:48 PM EDT Latrice SHIELDS LAB BLOOD ORDERABLES Final Re sult Performing Organization Address City/[facility]/ZIP Co de Phone Number [facility] [address] [place] [address], [place] [phone] * Immunofixation electrophoresis serum (07/25/2024 4:25 PM EDT) [facility] Immunofixation Result, Serum No monoclonal immunoglobulins detected. LAB CHEMISTRY METHOD 07/26/2024 4:46 PM EDT [facility] Blood Venous blood specimen / Unknown Venipuncture / Unknown 07/25/2024 4:25 PM EDT 07/25/2024 4:48 PM EDT Latrice SHIELDS LAB BLOOD ORDERABLES Final Re sult Performing Organization Address City/[facility]/ZIP Co de Phone Number [facility] [address] [place] [address], [place] [phone] * (ABNORMAL) Immunoglobulins IgG, IgA, IgM (07/25/2024 4:25 PM EDT) [facility] Total IgG 1,360 549 - 1,584 mg/dL LAB CHEMISTRY METHOD 07/25/2024 5:50 PM EDT [facility] IgA 476(H) 61 - 348 mg/dL LAB CHEMISTRY METHOD 07/25/2024 5:50 PM EDT [facility] IgM 116 23 - 259 mg/dL LAB CHEMISTRY METHOD 07/25/2024 5:50 PM EDT [facility] Blood Venous blood specimen / Unknown Venipuncture / Unknown 07/25/2024 4:25 PM EDT 07/25/2024 4:48 PM EDT us Latrice SHIELDS LAB BLOOD ORDERABLES Final Re sult [facility] [address] [place] [address], [place] [phone] * Protein electrophoresis, serum (07/25/2024 4:25 PM EDT) Total Protein 7.2 6.0 - 8.0 g/dL LAB CHEMISTRY METHOD 07/26/2024 4:44 PM EDT [facility] Albumin, Serum 3.2 2.9 - 4.1 g/dL LAB CHEMISTRY METHOD 07/26/2024 4:44 PM EDT [facility] Alpha 1 Globulin (g/dL) 0.2 0.1 - 0.5 g/dL LAB CHEMISTRY METHOD 07/26/2024 4:44 PM EDT [facility] Alpha 2 Globulin (g/dL) 1.1 0.7 - 1.5 g/dL LAB CHEMISTRY METHOD 07/26/2024 4:44 PM EDT [facility] Beta (g/dL) 1.1 0.7 - 1.5 g/dL LAB CHEMISTRY METHOD 07/26/2024 4:44 PM EDT [facility] Gamma Globulin (g/dL) 1.6 0.7 - 1.9 g/dL LAB CHEMISTRY METHOD 07/26/2024 4:44 PM EDT [facility] SPEP Interpretation Essentially normal pattern. No M-Braydon seen. LAB CHEMISTRY METHOD 07/26/2024 4:44 PM EDT [facility] Blood Venous blood specimen / Unknown Venipuncture / Unknown 07/25/2024 4:25 PM EDT 07/25/2024 4:48 PM EDT us Latrice SHIELDS LAB BLOOD ORDERABLES Final Re sult [facility] [address] [place] [address], [place] [phone] * Protein, total (07/25/2024 4:25 PM EDT) [facility] Total Protein 7.2 6.0 - 8.0 g/dL LAB CHEMISTRY METHOD 07/25/2024 5:40 PM EDT [facility] Blood Venous blood specimen / Unknown Venipuncture / Unknown 07/25/2024 4:25 PM EDT 07/25/2024 4:48 PM EDT Latrice SHIELDS LAB BLOOD ORDERABLES Final Re sult Performing Organization Address [facility] Co de Phone Number [facility] [address] [place] [address], [place] [phone] * Lactate dehydrogenase (07/25/2024 4:25 PM EDT) [facility] LDH 186 120 - 246 unit/L LAB CHEMISTRY METHOD 07/25/2024 5:38 PM EDT [facility] Blood Venous blood specimen / Unknown Venipuncture / Unknown 07/25/2024 4:25 PM EDT 07/25/2024 4:48 PM EDT Latrice SHIELDS LAB BLOOD ORDERABLES Final Re sult [facility] [address] [place] [address], [place] [phone] * (ABNORMAL) Haptoglobin (07/25/2024 4:25 PM EDT) [facility] Haptoglobin 263(H) 16 - 200 mg/dL LAB CHEMISTRY METHOD 07/25/2024 5:38 PM EDT [facility] Blood Venous blood specimen / Unknown Venipuncture / Unknown 07/25/2024 4:25 PM EDT 07/25/2024 4:48 PM EDT Latrice SHIELDS LAB BLOOD ORDERABLES Final Re sult Performing Organization Address [facility]/ZIP Co de Phone Number [facility] [address] [place] [address], [place] [phone] * Folate (07/25/2024 4:25 PM EDT) [facility] Folate 12.6 2.8 - 17.0 ng/ml LAB CHEMISTRY METHOD 07/25/2024 5:50 PM EDT [facility] Blood Venous blood specimen / Unknown Venipuncture / Unknown 07/25/2024 4:25 PM EDT 07/25/2024 4:48 PM EDT Latrice SHIELDS LAB BLOOD ORDERABLES Final Re sult Performing Organization Address [facility]/ZIP Co de Phone Number [facility] [address] [place] [address], [place] [phone] * Ferritin (07/25/2024 4:25 PM EDT) [facility] Ferritin 17 8 - 252 ng/mL LAB CHEMISTRY METHOD 07/25/2024 5:50 PM EDT [facility] Blood Venous blood specimen / Unknown Venipuncture / Unknown 07/25/2024 4:25 PM EDT 07/25/2024 4:48 PM EDT Latrice SHIELDS LAB BLOOD ORDERABLES Final Re sult Performing Organization Address City/[facility]/ZIP Co de Phone Number [facility] [address] [place] [address], [place] [phone] * (ABNORMAL) Comprehensive metabolic panel (07/25/2024 4:25 PM EDT) Sodium 138 133 - 145 mmol/L LAB CHEMISTRY METHOD 07/25/2024 5:38 PM [facility] Potassium 3.4(L) 3.5 - 5.5 mmol/L LAB CHEMISTRY METHOD 07/25/2024 5:38 PM [facility] Chloride 102 96 - 110 mmol/L LAB CHEMISTRY METHOD 07/25/2024 5:38 PM [facility] CO2 28 21 - 32 mmol/L LAB CHEMISTRY METHOD 07/25/2024 5:38 PM [facility] Anion Gap 8 3 - 11 LAB CHEMISTRY METHOD 07/25/2024 5:38 PM [facility] Glucose 109(H) 70 - 100 mg/dL LAB CHEMISTRY METHOD 07/25/2024 5:38 PM [facility] BUN 15 5 - 25 mg/dL LAB CHEMISTRY METHOD 07/25/2024 5:38 PM [facility] Creatinine 1.12(H) 0.50 - 1.10 mg/dL LAB CHEMISTRY METHOD 07/25/2024 5:38 PM [facility] eGFR 54(L) >=60 mL/min/1. 73m2 LAB CHEMISTRY METHOD 07/25/2024 5:38 PM [facility] Comment:Calculation based on the??Chronic Kidney Disease Epidemiology Collaboration (CKD-EPI) equation refit??without adjustment for race. BUN/Creatinine Ratio 13.4 LAB CHEMISTRY METHOD 07/25/2024 5:38 PM [facility] Calcium 8.6 8.5 - 10.5 mg/dL LAB CHEMISTRY METHOD 07/25/2024 5:38 PM [facility] AST (SGOT) 26 10 - 42 unit/L LAB CHEMISTRY METHOD 07/25/2024 5:38 PM [facility] ALT (SGPT) 25 10 - 60 unit/L LAB CHEMISTRY METHOD 07/25/2024 5:38 PM [facility] Alkaline Phosphatase 117 42 - 121 unit/L LAB CHEMISTRY METHOD 07/25/2024 5:38 PM EDT [facility] Total Protein 7.2 6.0 - 8.0 g/dL LAB CHEMISTRY METHOD 07/25/2024 5:38 PM EDT [facility] Albumin 3.3 3.2 - 5.0 g/dL LAB CHEMISTRY METHOD 07/25/2024 5:38 PM EDT [facility] Total Bilirubin 0.3 0.0 - 1.4 mg/dL LAB CHEMISTRY METHOD 07/25/2024 5:38 PM EDT [facility] Blood Venous blood specimen / Unknown Venipuncture / Unknown 07/25/2024 4:25 PM EDT 07/25/2024 4:48 PM EDT Latrice SHIELDS LAB BLOOD ORDERABLES Final Re sult [facility] [address] [place] [address], * SCREENING MAMMOGRAPHY BI 2-VIEW BREAST INC [...] Breast cancer risk category Low (<15%) Location: [facility], [address] [place] [address], [address], [phone] Procedure Note Latrice Garcia MD - 03/02/2024 [...] Breast cancer risk category Low (<15%) Location: [facility], [address] [place] [address], [address], [phone] Result [facility] Jason Vides MD IMG XR PROCEDURES Final Result * Urine Albumin Creatinine Ratio (09/15/2023) [facility] Urine Albumin Creatinine Ratio Abstracted Result [facility] Provider HEALTH MAINTENANCE Final Result * Hepatitis C Screening (09/15/2023) [facility] Hepatitis C Screening Abstracted Result [facility] HEALTH MAINTENANCE Final Result * Colonoscopy (10/18/2021) [facility] Colonoscopy No Interpretation , Abstracted Anatomical Region Laterality Modality Other Result [facility] HEALTH MAINTENANCE Final Result * Cervical Cancer Screening: HPV (06/10/2016) Cervical Cancer Screening: HPV Negative, Abstracted us Historical Provider HEALTH MAINTENANCE Final Result from Last 3 Months or Most Recently Relevant to [place] [id number] [facility] Care Teams Crimping Machine Operator Relationship Specialty Start Date End Date Jason Vides MD [address] [place] [address] [id number] PCP - General Internal Medicine 11/23/19
--- OUTSIDE RECORDS SUMMARY | 2024-09-28 14:36 | XMS_ITS | Encounter Summary ---
Author Organization [employer] [facility] [employer] Address [address] [place] [address] Care Team Providers Care Grief Counsellor Name Role Phone Jason Vides MD Primary Care Provider [phone] Reason for Visit * Reason Onset Date Comments Medication 10/04/2021 Encounter Details Date Type Department Care Team Description 10/04/2021 Refill Gastroenterology - [facility] [address] [facility] [address] [place] [address] Richar Giron MD [address] [place] [phone] Medication Social History Tobacco Use Types Packs/Day Years [...] Recorded In the last 10 days, have sylvia hess been in contact with someone who was confirmed or suspected to have Coronavirus/COVID-19? No / Unsure 09/28/2021 8:54 AM EDT documented as of this encounter Plan of Treatment Not on file documented as of this encounter Visit Diagnoses Not on filedocumented in this encounter Care Teams Grief Counsellor Relationship Specialty Start Date End Date Jason Vides MD [address] [place] [phone] PCP - General Internal Medicine 11/23/19 documented as of this encounter
--- OUTSIDE RECORDS SUMMARY | 2024-09-28 14:36 | XMS_ITS | Encounter Summary ---
Author Organization [facility] Address [address] [place] [address] Care Team Providers Care Hide Cooking Operator Name Role Phone Jason Vides MD Primary Care Provider [phone] Encounter Details Date Type Department Care Team Description 05/08/2020 Distribution Analyst Report Medical Records [address] [place] [address] Tj Sawant PA-C [address] [place] [phone] Social History Tobacco Use Types Packs/Day Years [...] on filedocumented in this encounter Care Teams Hide Cooking Operator Relationship Specialty Start Date End Date Jason Vides MD [address] [place], [place] [phone] PCP - General Internal Medicine 11/23/19 documented as of this encounter
--- OUTSIDE RECORDS SUMMARY | 2024-09-28 14:36 | XMS_ITS | Encounter Summary ---
[facility] Address [address] [place] [address] Care Team Providers Care Bending Shed Worker Name Role Phone Jason Vides MD Primary Care Provider [phone] Encounter Details Date Type Department Care Team Description 04/24/2021 Cross Tie Tram Loader Report Medical Records [address] [place] [address] [facility] Social History Tobacco Use Types Packs/Day Years [...] on filedocumented in this encounter Care Teams Bending Shed Worker Relationship Specialty Start Date End Date Jason Vides MD [address] [place] [address] PCP - General Internal Medicine 11/23/19 documented as of this encounter
--- OUTSIDE RECORDS SUMMARY | 2024-09-28 14:36 | XMS_ITS | Encounter Summary ---
Author Organization [facility] Address [address] [place] [address] Care Team Providers Care Curbing Stonecutter Name Role Phone Jason Vides MD Primary Care Provider [phone] Encounter Details Date Type Department Care Team Description 10/22/2021 Orders Only Medical Records [address] [place] [address] Richar Giron MD [address] [place], [place] [phone] Social History Tobacco Use Types Packs/Day Years [...] Certified Gastroenterology and Internal Medicine Transplant Hepatology [facility] documented in this encounter Plan of Treatment Not on file documented as of this encounter Procedures Procedure Name Priority Date/Time Associated Diagnosis Comments OUTSIDE PATHOLOGY Routine 10/18/2021 documented in this encounter Results * OUTSIDE PATHOLOGY (10/18/2021) Richar Giron MD OUTSIDE LAB documented in this encounter Visit Diagnoses Not on filedocumented in this encounter Care Teams Curbing Stonecutter Relationship Specialty Start Date End Date Jason Vides MD [address] [place] [id number] PCP - General Internal Medicine 11/23/19 documented as of this encounter
--- OUTSIDE RECORDS SUMMARY | 2024-09-28 14:36 | XMS_ITS | Encounter Summary ---
[facility] Organization [facility] Address [address] [place] [address] Care Team Providers Care Clinical Care Coordinator Name Role Phone Yung Spaulding MD Primary Care Provider [phone] Matthew Devine MD Primary Care Provider Christina Augusto Baptiste MD Primary Care Provider Unavail Jelani Basilio MD Primary Care Provider Unavail Jason Skinner MD Primary Care Provider [phone] Reason for Visit * Reason Comments E-prescribe Rx Request Encounter Details Date Type Department Care Team Description 04/20/2011 Refill Adult Medicine [address] [phone] Yung Spaulding MD [address] [place] [id number] E-prescribe Rx Request Social History Tobacco Use [...] FEP BASIC $25/$35 [place] Product Type: PPO [id number] documented in this encounter Plan of Treatment Not on file documented as of this encounter Visit Diagnoses Not on filedocumented in this encounter Care Teams Clinical Care Coordinator Relationship Specialty Start Date End Date Yung Spaulding MD [address] [place] [address] PCP - General 04/17/1991 04/22/11 Matthew Devine MD [address] [place] [address] PCP - General Internal Medicine 04/23/11 05/17/14 Augusto Osorio MD [address] [place] [address] PCP - General Internal Medicine 07/06/14 02/26/15 Jelani Riddle MD [address] [place] [address] PCP - General Internal Medicine 02/27/15 11/22/19 Jason Vides MD [address] [place] [address] PCP - General Internal Medicine 11/23/19 documented as of this encounter
--- OUTSIDE RECORDS SUMMARY | 2024-09-28 14:36 | XMS_ITS | Clinical Summary ---
Author Organization [facility] Address [address] [place] [address] Care Team Providers Care Government Program Manager Name Role Phone Jason Vides MD Primary Care Provider [phone] Allergies Active Allergy Reactions Severity Noted Date [...] C SCREENING Completed 09/15/2023 , 05/03/2015 (Refused) Care Teams Government Program Manager Relationship Specialty Start Date End Date Jason Vides MD [address] [place] [address] PCP - General Internal Medicine 11/23/19
--- OUTSIDE RECORDS SUMMARY | 2024-09-28 14:36 | XMS_ITS | Encounter Summary ---
[facility] Address [address] [place] [address] Care Team Providers Care Vendor Relationship Manager Name Role Phone eJlani Riddle MD Primary Care Provider Unavail able Jason Vides MD Primary Care Provider [phone] Encounter Details Date Type Department Care Team Description 03/03/2016 Senior Director Of Global Commercial Technology Solutions Report Medical Records [address] [place] [address] Puja Girard Social History Tobacco Use Types Packs/Day Years [...] on filedocumented in this encounter Care Teams Vendor Relationship Manager Relationship Specialty Start Date End Date Jelani Riddle MD PCP - General Internal Medicine 02/27/15 11/22/19 Jason Vides MD [address] [place] [address] [phone] PCP - General Internal Medicine 11/23/19 documented as of this encounter
--- OUTSIDE RECORDS SUMMARY | 2024-09-28 14:36 | XMS_ITS | Encounter Summary ---
[facility] Address [address] [place] [address] Care Team Providers Care Dry Cleaning Manager Name Role Phone Jason Vides MD Primary Care Provider [phone] Reason for Visit * Reason Onset Date Comments BLOOD PRESSURE-SELF MEASURED 11/26/2021 Dinorah dings to Provider Encounter Details Date Type Department Care Team Description 11/26/2021 Pt. Non Urgent Medic al Question Adult Medicine [address] [address] Munira Kennedy PA Social History Tobacco Use [...] - 11/27/2021 7:27 AM EDT Please see [facility] message with BP Readings, thank you. documented in this encounter Miscellaneous Notes * Telephone Encounter - Jackie Pitts M.A. - 11/27/2021 7:26 AM EDTFrom: Adelaida Jones To: Vasu Figueroa Sent: 11/26/2021 8:47 PM [...] filedocumented in this encounter Care Teams Dry Cleaning Manager Relationship Specialty Start Date End Date Jason Vides MD [address] [place] [address] PCP - General Internal Medicine 11/23/19 documented as of this encounter
--- OUTSIDE RECORDS SUMMARY | 2024-09-28 14:36 | XMS_ITS | Encounter Summary ---
[facility] Address [address] [place] [address] Care Team Providers Care Structural Iron Worker Name Role Phone Jelani Riddle MD Primary Care Provider Unavail able Jason Vides MD Primary Care Provider [phone] Encounter Details Date Type Department Care Team Description 02/28/2016 Financial Planning Adviser Report Medical Records [address] [place] [address] Jamie Shaikh Social History Tobacco Use Types [...] on filedocumented in this encounter Care Teams Structural Iron Worker Relationship Specialty Start Date End Date Jelani Riddle MD PCP - General Internal Medicine 02/27/15 11/22/19 Jason Vides MD [address] [place] [address] [phone] PCP - General Internal Medicine 11/23/19 documented as of this encounter
--- OUTSIDE RECORDS SUMMARY | 2024-09-28 14:36 | XMS_ITS | Encounter Summary ---
[facility] Address [address] [place] [address] Care Team Providers Care Baker Pastry Name Role Phone Jelani Riddle MD Primary Care Provider Unavail able Jason Vides MD Primary Care Provider [phone] Encounter Details Date Type Department Care Team Description 04/08/2016 Chassis Inspector Report Medical Records [address] [place] [address] Jamie Shaikh Social History Tobacco Use Types [...] on filedocumented in this encounter Care Teams Baker Pastry Relationship Specialty Start Date End Date Jelani Riddle MD PCP - General Internal Medicine 02/27/15 11/22/19 Jason Vides MD [address] [place] [address] [phone] PCP - General Internal Medicine 11/23/19 documented as of this encounter
--- OUTSIDE RECORDS SUMMARY | 2024-09-28 14:36 | XMS_ITS | Encounter Summary ---
[facility] Address [address] [place] [address] Care Team Providers Care Trauma Manager Name Role Phone Jelani Riddle MD Primary Care Provider Unavail able Jason Vides MD Primary Care Provider [phone] Encounter Details Date Type Department Care Team Description 06/27/2016 Design Tech Report Medical Records [address] [place] [address] Abstract, Provider Social History Tobacco Use Types [...] on filedocumented in this encounter Care Teams Trauma Manager Relationship Specialty Start Date End Date Jelani Riddle MD PCP - General Internal Medicine 02/27/15 11/22/19 Jason Vides MD [address] [place] [address] [phone] PCP - General Internal Medicine 11/23/19 documented as of this encounter
--- OUTSIDE RECORDS SUMMARY | 2024-09-28 14:36 | XMS_ITS | Encounter Summary ---
[facility] Address [address] [place] [address] Care Team Providers Care Heat And Frost Insulator Helper Name Role Phone Jelani Riddle MD Primary Care Provider Unavail able Jason Vides MD Primary Care Provider [phone] Encounter Details Date Type Department Care Team Description 01/14/2019 Hospital Medical Records [address] [place] [address] Joao Herrera Social History Tobacco Use Types [...] on filedocumented in this encounter Care Teams Heat And Frost Insulator Helper Relationship Specialty Start Date End Date Jelani Riddle MD PCP - General Internal Medicine 02/27/15 11/22/19 Jason Vides MD [address] [place] [address] [phone] PCP - General Internal Medicine 11/23/19 documented as of this encounter
--- OUTSIDE RECORDS SUMMARY | 2024-09-28 14:36 | XMS_ITS | Encounter Summary ---
[facility] Address [address] [place] [address] Care Team Providers Care Real Estate Assessor Name Role Phone Jelani Riddle MD Primary Care Provider Unavail able Jason Vides MD Primary Care Provider [phone] Encounter Details Date Type Department Care Team Description 07/21/2018 Broke Man Report Medical Records [address] [place] [address] [facility] Social History Tobacco [...] on filedocumented in this encounter Care Teams Real Estate Assessor Relationship Specialty Start Date End Date Jelani Riddle MD PCP - General Internal Medicine 02/27/15 11/22/19 Jason Vides MD [address] [place] [address] [phone] PCP - General Internal Medicine 11/23/19 documented as of this encounter
--- OUTSIDE RECORDS SUMMARY | 2024-09-28 14:36 | XMS_ITS | Encounter Summary ---
[facility] Address [address] [place] [address] Care Team Providers Care Registered Medical Transcriptionist Name Role Phone Matthew Pineda MD Primary Care Provider Augusto Ruiz MD Primary Care Provider Unavail able Jelani Riddle MD Primary Care Provider Unavail able Jason Vides MD Primary Care Provider [phone] Encounter Details Date Type Department Care Team Description 02/14/2014 Release of Information Medical Records [address] [place] [address] Abstract, Provider Social History Tobacco Use Types [...] on filedocumented in this encounter Care Teams Registered Medical Transcriptionist Relationship Specialty Start Date End Date Matthew Pineda MD PCP - General Internal Medicine 04/23/11 Augusto Osorio MD PCP - General Internal Medicine 07/06/14 02/26/15 Jelani Riddle MD PCP - General Internal Medicine 02/27/15 11/22/19 Jason Vides MD [address] [place] [address] [phone] PCP - General Internal Medicine 11/23/19 documented as of this encounter
--- OUTSIDE RECORDS SUMMARY | 2024-09-28 14:36 | XMS_ITS | Encounter Summary ---
[facility] Address [address] [place] [address] Care Team Providers Care Professor Of Literacy Name Role Phone Jelani Riddle MD Primary Care Provider Unavail able Jason Vides MD Primary Care Provider [phone] Encounter Details Date Type Department Care Team Description 11/05/2018 Hospital Medical Records [address] [place] [id number] Hannah Oliver Social History Tobacco Use Types [...] in this encounter Care Teams Professor Of Literacy Relationship Specialty Start Date End Date Jelani Riddle MD PCP - General Internal Medicine 02/27/15 11/22/19 Jason Vides MD [address] [place] [address] [id number] PCP - General Internal Medicine 11/23/19 documented as of this encounter
--- OUTSIDE RECORDS SUMMARY | 2024-09-28 14:36 | XMS_ITS | Encounter Summary ---
Author [facility] Address [address] [place] [address] Care Team Providers Care Cloth Printer Helper Name Role Phone Matthew Pineda MD Primary Care Provider Augusto Ruiz MD Primary Care Provider Unavail able Jelani Riddle MD Primary Care Provider Unavail able Jason Vides MD Primary Care Provider [phone] Encounter Details Date Type Department Care Team Description 02/13/2014 Special Needs Nanny Report Medical Records [address] [place] [id number] Ayanna Cassidy Social History Tobacco Use Types [...] on filedocumented in this encounter Care Teams Cloth Printer Helper Relationship Specialty Start Date End Date Matthew Pineda MD PCP - General Internal Medicine 04/23/11 Augusto Osorio MD PCP - General Internal Medicine 07/06/14 02/26/15 Jelani Riddle MD PCP - General Internal Medicine 02/27/15 11/22/19 Jason Vides MD [address] [place] [address] [phone] PCP - General Internal Medicine 11/23/19 documented as of this encounter
[2024-09-28 14:41] VITALS: BMI 40.2
== END 2024-09-28 15:13 | disposition home or self-care (01) ==
LOC: HO.HWS 14:33
PROVIDERS: Visit Provider Obstetrics & Gynecology
DX: N95.0 Postmenopausal bleeding (principal); D25.9 Leiomyoma of uterus, unspecified
CPT/HCPCS: 58100

== ENCOUNTER 2024-10-19 12:02 | Outpatient (AMB) | payer BC, SELFPAY ==
[2024-10-19 12:06] VITALS: BP 122/80; BMI 40.2
--- NOTE | 2024-10-19 12:06 | MHC.OFFVIS ---
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 The patient has no complaints, no vaginal bleeding, no feverishness chills or abdominal pain. The endometrial biopsy pathology report showed the following: Endometrium, biopsy: - Fragments of endometrial polyp. - Background superficial strips and fragments of inactive endometrium. - Rare superficial fragments of degenerated squamous and endocervical epithelium. 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 Sexual orientation: Straight/Heterosexual Gender identity: Female Female Reproductive History Menstrual Date of last menstrual period: 03/15/20 Total pregnancies: 2 Full term: 2 Review of Systems Card Reports as per HPI and Reports no additional complaints Resp Reports as per HPI and Reports no additional complaints GI Reports as per HPI and Reports no additional complaints Reports as per HPI Physical Exam Vital Signs: Last Vital Signs BP 122/80 10/19/24 12:06 BMI result Body Mass Index 40.2 Const General: cooperative, healthy appearing and comfortable Resp Effort & Inspection: normal respiratory effort Auscultation: clear to auscultation bilaterally Percussion: percussion normal Cardio Palpation: normal PMI Rate: regular rate Rhythm: regular rhythm Heart sounds: no murmurs and no rubs Peripheral pulses: Peripheral pulses 2+ throughout GI Inspection: Yes normal to inspection Palpation (GI): Soft to palpation, nontender, no guarding, not rigid and No hepatosplenomegaly present Percussion: Yes normal to percussion Auscultation: normal bowel sounds Rectal Exam - Female: deferred Assessment & Plan Assessment & Plan (1) Postmenopausal bleeding: Comment: Endometrial polyp on EMB pathology Code(s): N95.0 - Postmenopausal bleeding Category: Medical Plan: Discussed with the patient the results of the EMB pathology showing endometrial polyp, recommended hysteroscopy D&C possible polypectomy/myomectomy. Discussed with the patient the procedure , all benefits and risks including but not limited to inability to complete the procedure , insufficient endometrial tissue for a complete evaluation of the endometrial cavity , bleeding, infection, possible need for blood transfusion with all its risk ( HIV,syphilis, Hepatitis, anaphylaxis shock, others..), injury to bladder, rectum, possible need for laparoscopy/laparotomy or hysterectomy. The patient verbalized understanding and signed the consent. Instructions given the patient to stay NPO after midnight the day prior to the procedure and to take only the specific medication (s) discussed the morning of the surgical procedure and to schedule a 2 week postoperative appointment Coding Level of Care Code Est Pt Level 3 (67145) Diagnoses Postmenopausal bleeding N95.0
--- OUTSIDE RECORDS SUMMARY | 2024-10-19 12:42 | XMS_ITS | Clinical Summary ---
Author Organization [facility] [address] [place] [address] [place] [phone] Phone Care Team Providers Care Client Service Supervisor Name Role Phone Jason Vides MD Primary Care Provider [phone] Allergies Active Allergy Reactions Criticality Noted Date [...] obesity with BMI of 4 0.0-44.9, adult ([facility], [facility] V28) 04/21/2024 Gastroesophageal reflux disease without esophagi tis 03/02/2023 CKD (chronic kidney disease) stage 3, GFR 30-59 ml/min ([facility] V24, [facility] V28) 03/06/2022 Type II diabetes mellitus wi th renal manifestations ([facility] V24, [facility] V28) 01/09/2020 Asthma in adult 05/03/2015 Hyperlipidemia [...] Office Visit Gastroenterology [facility] 175 [facility] [address] [phone] Severo Sheriff PA Anemia, unspecified type (Primary Dx); Tubular adenoma of colon; Encounter for screening colonoscopy; Chronic kidney disease, unspecified CKD stage 08/09/2024 Telephone Gastroenterology [facility] 175 [facility] 175 [facility] [address] [place] [phone] Severo Sheriff PA 07/30/2024 9:15 AM EDT Clinic Lab Collection Walk-In Clinic - [facility] [address] [place] [phone] Type 2 diabetes mellitus with chronic kidney disease, without long-term current use of insulin, unspecified CKD stage ([facility] V24, [facility] V28); Hyperlipidemia, unspecified hyperlipidemia type 07/26/2024 5:00 PM EDT Office Visit [address] [phone] Cristopher Price PA Essential hypertension, benign (Primary Dx); Hyperlipidemia, unspecified hyperlipidemia type; Type 2 diabetes mellitus with chronic kidney disease, without long-term current use of insulin, unspecified CKD stage ([facility]/HCC V24, [facility] V28); Stage 3a chronic kidney disease (CMS/HCC V24, [facility] V28); Gastroesophageal reflux disease without esophagitis; Iron deficiency anemia, unspecified iron deficiency anemia type 07/25/2024 3:30 PM EDT Office Visit [facility] Hematology Oncology [address] [place] [phone] Latrice Pineda PA Anemia, unspecified type (Primary [...] Description 10/31/2024 2:45 PM EDT Office Visit [facility] Hematology Oncology [address] [place] [phone] Latrice Pineda PA [address] [place] [address] 11/15/2024 8:30 AM EDT Appointment [facility] Endoscopy [address] [place] [phone] Adrienne Giron MD [address] [address] 12/06/2024 5:00 PM EDT Office Visit Adult Medicine [facility] - [address] [phone] Cristopher Price PA [address] [place] [address] 02/25/2025 8:30 AM EDT Appointment Radiology Department - [address] [phone] Health Maintenance Due Date Last Done Comments [...] of insulin, unspecified CKD stage ([facility] V24, [facility] V28) Hyperlipidemia, unspecified hyperlipidemia type HEMOGLOBIN A1C Routine 07/30/2024 9:36 AM EDT Type 2 diabetes mellitus with chronic kidney disease, without long-term current use of insulin, unspecified CKD stage (CMS/HCC V24, [facility] V28) [place] PROTEIN ELECTROPHORETIC FRACTIONATION & QUANTITATION [...] LAB CHEMISTRY METHOD 07/30/2024 6:13 PM EDT [facility] Triglycerides 70 0 - 150 mg/dL LAB CHEMISTRY METHOD 07/30/2024 6:13 PM EDT [facility] HDL 79 >=40 mg/dL LAB CHEMISTRY METHOD 07/30/2024 6:13 PM EDT [facility] LDL Calculated 80 0 - 100 mg/dL LAB CHEMISTRY METHOD 07/30/2024 6:13 PM EDT [facility] VLDL Cholesterol Harjinder 14 mg/dL LAB CHEMISTRY METHOD 07/30/2024 6:13 PM EDT [facility] Non HDL Chol. (LDL+VLDL) 94 <145 mg/dL LAB CHEMISTRY METHOD 07/30/2024 6:13 PM EDT [facility] Chol/HDL Ratio 2.2 0.0 - 4.4 LAB CHEMISTRY METHOD 07/30/2024 6:13 PM EDT [facility] Blood Venous blood specimen / Unknown Venipuncture / Unknown 07/30/2024 9:36 AM EDT 07/30/2024 9:36 AM EDT Cristopher SHIELDS LAB BLOOD ORDERABLES Fi nal Result Performing Organization Address [facility]/ZIP Co de Phone Number [facility] [address] [place] [address], [place] [phone] * (ABNORMAL) Hemoglobin A1c (07/30/2024 9:36 AM EDT) Hemoglobin A1C 6.9(H) <6.5 % LAB CHEMISTRY METHOD 07/31/2024 12:07 PM EDT [facility] Mean Bld Glu Estim. 151 mg/dL LAB CHEMISTRY METHOD 07/31/2024 12:07 PM EDT [facility] Blood Venous blood specimen / Unknown Venipuncture / Unknown 07/30/2024 9:36 AM EDT 07/30/2024 9:36 AM EDT us Cristopher SHIELDS LAB BLOOD ORDERABLES Fi nal Result Performing Organization Address City/[facility]/ZIP Co de Phone Number [facility] [address] [place] [address], [place] [phone] * Pathologist Review Immunofixation (07/25/2024 4:25 PM EDT) Pathologist Interpretation Reviewed by Lurdes Harkins MD 07/26/2024 4:46 PM EDT [facility] Blood Venous blood specimen / Unknown Venipuncture / Unknown 07/25/2024 4:25 PM EDT 07/25/2024 4:48 PM EDT us Latrice SHIELDS LAB BLOOD ORDERABLES Final Re sult [facility] [address] [place] [address], [place] [phone] * PATHOLOGIST REVIEW PROTEIN ELECTROPHORESIS (07/25/2024 4:25 PM EDT) Pathologist Interpretation Reviewed by Lurdes Harkins MD 07/26/2024 4:44 PM EDT [facility] Blood Venous blood specimen / Unknown Venipuncture / Unknown 07/25/2024 4:25 PM EDT 07/25/2024 4:48 PM EDT us Latrice SHIELDS LAB BLOOD ORDERABLES Final Re sult Performing Organization Address City/[facility]/ZIP Co de Phone Number [facility] [address] [place] [address], [place] [phone] * Thyroid stimulating hormone with reflex to free t4 and free t3 (07/25/2024 4:25 PM EDT) TSH 1.47 0.40 - 4.00 mcIU/mL LAB CHEMISTRY METHOD 07/25/2024 5:46 PM EDT [facility] Blood Venous blood specimen / Unknown Venipuncture / Unknown 07/25/2024 4:25 PM EDT 07/25/2024 4:48 PM EDT Latrice SHIELDS LAB BLOOD ORDERABLES Final Re sult [facility] [address] [place] [address], * (ABNORMAL) Anton-lambda free light chains, quantitative (07/25/2024 4:25 PM EDT) Pathologist [facility] Anton Free Light Chain 4.15(H) 0.33 - 1.94 mg/dL 07/28/2024 12:43 PM EDT [facility] Lambda Free Light Chain 2.84(H) 0.57 - 2.63 mg/dL 07/28/2024 12:43 PM EDT [facility] Anton/Lambda FLC Ratio 1.46 0.26 - 1.65 07/28/2024 12:43 PM EDT [facility] Comment: Test performed at [facility], [address] , [place], [place] ??[address] ? [phone] Sarah Bryan MD, PhD - Sterile Tech Blood Venous blood specimen / Unknown Venipuncture / Unknown 07/25/2024 4:25 PM EDT 07/25/2024 4:49 PM EDT Latrice SHIELDS LAB BLOOD ORDERABLES Final Re sult [facility] [address] [place] [address] * (ABNORMAL) CBC auto differential (07/25/2024 4:25 PM EDT) Pathologist [facility] WBC 8.5 4.8 - 10.8 K/mcL LAB HEMETOLOGY METHOD 07/25/2024 5:07 PM EDT [facility] RBC 4.20 3.80 - 4.80 M/mcL LAB HEMETOLOGY METHOD 07/25/2024 5:07 PM EDT [facility] Hemoglobin 10.1(L) 11.5 - 16.0 g/dL LAB HEMETOLOGY METHOD 07/25/2024 5:07 PM EDT [facility] Hematocrit 33.9(L) 35.0 - 47.0 % LAB HEMETOLOGY METHOD 07/25[facility]2024 [facility] MCV 80.3 79.0 - 98.0 FL LAB HEMETOLOGY METHOD 07/25/2024 5:07 PM [facility] MCH 23.9(L) 27.0 - 32.0 pcg LAB HEMETOLOGY METHOD 07/25/2024 5:07 PM [facility] MCHC 29.8(L) 32.0 - 37.0 g/dL LAB HEMETOLOGY METHOD 07/25/2024 5:07 PM [facility] RDW 18.7(H) 11.0 - 15.0 % LAB HEMETOLOGY METHOD 07/25/2024 5:07 PM [facility] Platelets 290 130 - 400 K/mcL LAB HEMETOLOGY METHOD 07/25/2024 5:07 PM [facility] MPV 10.4 7.0 - 11.0 FL LAB HEMETOLOGY METHOD 07/25/2024 5:07 PM [facility] NRBC 0.0 <1.0 % LAB HEMETOLOGY METHOD 07/25/2024 5:07 PM [facility] NRBC Absolute 0.00 <0.10 K/mcL LAB HEMETOLOGY METHOD 07/25/2024 5:07 PM [facility] Neutrophils Relative 57.5 % LAB HEMETOLOGY METHOD 07/25/2024 5:07 PM [facility] Lymphocytes Relative 29.7 % LAB HEMETOLOGY METHOD 07/25/2024 5:07 PM [facility] Monocytes Relative 8.9 % LAB HEMETOLOGY METHOD 07/25/2024 5:07 PM [facility] Eosinophils Relative 2.0 % LAB HEMETOLOGY METHOD 07/25/2024 5:07 PM EDT [facility] Basophils Relative 0.8 % LAB HEMETOLOGY METHOD 07/25/2024 5:07 PM EDT [facility] Immature Granulocytes Relative 1.1 % LAB HEMETOLOGY METHOD 07/25/2024 5:07 PM EDT [facility] Neutrophils Absolute 4.91 1.50 - 7.00 K/mcL LAB HEMETOLOGY METHOD 07/25/2024 5:07 PM EDT [facility] Lymphocytes Absolute 2.53 1.00 - 5.00 K/mcL LAB HEMETOLOGY METHOD 07/25/2024 5:07 PM EDT [facility] Monocytes Absolute 0.76 0.20 - 1.00 K/mcL LAB HEMETOLOGY METHOD 07/25/2024 5:07 PM EDT [facility] Eosinophils Absolute 0.17 0.00 - 0.50 K/mcL LAB HEMETOLOGY METHOD 07/25/2024 5:07 PM EDT [facility] Basophils Absolute 0.07 0.00 - 0.20 K/mcL LAB HEMETOLOGY METHOD 07/25/2024 5:07 PM EDT [facility] Immature Granulocytes Absolute 0.09(H) 0.00 - 0.03 K/mcL LAB HEMETOLOGY METHOD 07/25/2024 5:07 PM EDT [facility] Blood Venous blood specimen / Unknown Venipuncture / Unknown 07/25/2024 4:25 PM EDT 07/25/2024 4:48 PM EDT us Latrice SHIELDS LAB BLOOD ORDERABLES Final Re sult [facility] [address] [place] [address], * Hemoglobin electrophoresis (07/25/2024 4:25 PM EDT) [...] seen on hemoglobin electrophoresis. Test performed at [facility], [address] [place], [place] ??[address] ? [phone] Sarah Bryan MD, PhD - Sterile Tech Blood Venous blood specimen / Unknown Venipuncture / Unknown 07/25/2024 4:25 PM EDT 07/25/2024 4:48 PM EDT Latrice Pineda PA LAB BLOOD ORDERABLES Final Re sult [facility] [address] [place] [address] * (ABNORMAL) Erythropoietin (07/25/2024 4:25 PM EDT) Erythropoietin 24.8(H) 2.6 - 18.5 mIU/mL 07/28/2024 2:53 PM EDT [facility] Comment: Test performed at [facility], [address] [place], [place] ??[address] ? [phone] Sarah Bryan MD, PhD - Sterile Tech Blood Venous blood specimen / Unknown Venipuncture / Unknown 07/25/2024 4:25 PM EDT 07/25/2024 4:49 PM EDT us Latrice SHIELDS LAB BLOOD ORDERABLES Final Re sult [facility] [address] [place] [address] * Iron and TIBC (07/25/2024 4:25 PM EDT) Iron 128 40 - 150 mcg/dL LAB CHEMISTRY METHOD 07/25/2024 5:38 PM EDT [facility] TIBC 361 250 - 450 mcg/dL LAB CHEMISTRY METHOD 07/25/2024 5:38 PM EDT [facility] Iron Saturation 35 15 - 50 % LAB CHEMISTRY METHOD 07/25/2024 5:38 PM EDT [facility] Blood Venous blood specimen / Unknown Venipuncture / Unknown 07/25/2024 4:25 PM EDT 07/25/2024 4:48 PM EDT Latrice SHIELDS LAB BLOOD ORDERABLES Final Re sult Performing Organization Address City/[facility]/ZIP Co de Phone Number [facility] [address] [place] [address], * (ABNORMAL) Reticulocyte count (07/25/2024 4:25 PM EDT) Retic Ct Abs 0.080 0.030 - 0.090 M/mcL LAB HEMETOLOGY METHOD 07/25/2024 5:07 PM EDT [facility] Retic Ct Pct 1.9(H) 0.7 - 1.7 % LAB HEMETOLOGY METHOD 07/25/2024 5:07 PM EDT [facility] Immature Retic Fract 24.3(H) 2.3 - 15.9 % LAB HEMETOLOGY METHOD 07/25/2024 5:07 PM EDT [facility] Reticulocyte Hemoglobin 28.2(L) >29.0 pcg LAB HEMETOLOGY METHOD 07/25/2024 5:07 PM EDT [facility] Blood Venous blood specimen / Unknown Venipuncture / Unknown 07/25/2024 4:25 PM EDT 07/25/2024 4:48 PM EDT Latrice SHIELDS LAB BLOOD ORDERABLES Final Re sult Performing Organization Address City/[facility]/ZIP Co de Phone Number [facility] [address] [place] [address], [place] [phone] * Immunofixation electrophoresis serum (07/25/2024 4:25 PM EDT) [facility] Immunofixation Result, Serum No monoclonal immunoglobulins detected. LAB CHEMISTRY METHOD 07/26/2024 4:46 PM EDT [facility] Blood Venous blood specimen / Unknown Venipuncture / Unknown 07/25/2024 4:25 PM EDT 07/25/2024 4:48 PM EDT Latrice SHIELDS LAB BLOOD ORDERABLES Final Re sult Performing Organization Address City/[facility]/ZIP Co de Phone Number [facility] [address] [place] [address], [place] [phone] * (ABNORMAL) Immunoglobulins IgG, IgA, IgM (07/25/2024 4:25 PM EDT) [facility] Total IgG 1,360 549 - 1,584 mg/dL LAB CHEMISTRY METHOD 07/25/2024 5:50 PM EDT [facility] IgA 476(H) 61 - 348 mg/dL LAB CHEMISTRY METHOD 07/25/2024 5:50 PM EDT [facility] IgM 116 23 - 259 mg/dL LAB CHEMISTRY METHOD 07/25/2024 5:50 PM EDT [facility] Blood Venous blood specimen / Unknown Venipuncture / Unknown 07/25/2024 4:25 PM EDT 07/25/2024 4:48 PM EDT us Latrice SHIELDS LAB BLOOD ORDERABLES Final Re sult [facility] [address] [place] [address], [place] [phone] * Protein electrophoresis, serum (07/25/2024 4:25 PM EDT) Total Protein 7.2 6.0 - 8.0 g/dL LAB CHEMISTRY METHOD 07/26/2024 4:44 PM EDT [facility] Albumin, Serum 3.2 2.9 - 4.1 g/dL LAB CHEMISTRY METHOD 07/26/2024 4:44 PM EDT [facility] Alpha 1 Globulin (g/dL) 0.2 0.1 - 0.5 g/dL LAB CHEMISTRY METHOD 07/26/2024 4:44 PM EDT [facility] Alpha 2 Globulin (g/dL) 1.1 0.7 - 1.5 g/dL LAB CHEMISTRY METHOD 07/26/2024 4:44 PM EDT [facility] Beta (g/dL) 1.1 0.7 - 1.5 g/dL LAB CHEMISTRY METHOD 07/26/2024 4:44 PM EDT [facility] Gamma Globulin (g/dL) 1.6 0.7 - 1.9 g/dL LAB CHEMISTRY METHOD 07/26/2024 4:44 PM EDT [facility] SPEP Interpretation Essentially normal pattern. No M-Braydon seen. LAB CHEMISTRY METHOD 07/26/2024 4:44 PM EDT [facility] Blood Venous blood specimen / Unknown Venipuncture / Unknown 07/25/2024 4:25 PM EDT 07/25/2024 4:48 PM EDT us Latrice SHIELDS LAB BLOOD ORDERABLES Final Re sult [facility] [address] [place] [address], [place] [phone] * Protein, total (07/25/2024 4:25 PM EDT) [facility] Total Protein 7.2 6.0 - 8.0 g/dL LAB CHEMISTRY METHOD 07/25/2024 5:40 PM EDT [facility] Blood Venous blood specimen / Unknown Venipuncture / Unknown 07/25/2024 4:25 PM EDT 07/25/2024 4:48 PM EDT Latrice SHIELDS LAB BLOOD ORDERABLES Final Re sult Performing Organization Address [facility] Co de Phone Number [facility] [address] [place] [address], [place] [phone] * Lactate dehydrogenase (07/25/2024 4:25 PM EDT) [facility] LDH 186 120 - 246 unit/L LAB CHEMISTRY METHOD 07/25/2024 5:38 PM EDT [facility] Blood Venous blood specimen / Unknown Venipuncture / Unknown 07/25/2024 4:25 PM EDT 07/25/2024 4:48 PM EDT Latrice SHIELDS LAB BLOOD ORDERABLES Final Re sult [facility] [address] [place] [address], [place] [phone] * (ABNORMAL) Haptoglobin (07/25/2024 4:25 PM EDT) [facility] Haptoglobin 263(H) 16 - 200 mg/dL LAB CHEMISTRY METHOD 07/25/2024 5:38 PM EDT [facility] Blood Venous blood specimen / Unknown Venipuncture / Unknown 07/25/2024 4:25 PM EDT 07/25/2024 4:48 PM EDT Latrice SHIELDS LAB BLOOD ORDERABLES Final Re sult Performing Organization Address [facility]/ZIP Co de Phone Number [facility] [address] [place] [address], [place] [phone] * Folate (07/25/2024 4:25 PM EDT) [facility] Folate 12.6 2.8 - 17.0 ng/ml LAB CHEMISTRY METHOD 07/25/2024 5:50 PM EDT [facility] Blood Venous blood specimen / Unknown Venipuncture / Unknown 07/25/2024 4:25 PM EDT 07/25/2024 4:48 PM EDT Latrice SHIELDS LAB BLOOD ORDERABLES Final Re sult Performing Organization Address [facility]/ZIP Co de Phone Number [facility] [address] [place] [address], [place] [phone] * Ferritin (07/25/2024 4:25 PM EDT) [facility] Ferritin 17 8 - 252 ng/mL LAB CHEMISTRY METHOD 07/25/2024 5:50 PM EDT [facility] Blood Venous blood specimen / Unknown Venipuncture / Unknown 07/25/2024 4:25 PM EDT 07/25/2024 4:48 PM EDT Latrice SHIELDS LAB BLOOD ORDERABLES Final Re sult Performing Organization Address City/[facility]/ZIP Co de Phone Number [facility] [address] [place] [address], [place] [phone] * (ABNORMAL) Comprehensive metabolic panel (07/25/2024 4:25 PM EDT) Sodium 138 133 - 145 mmol/L LAB CHEMISTRY METHOD 07/25/2024 5:38 PM [facility] Potassium 3.4(L) 3.5 - 5.5 mmol/L LAB CHEMISTRY METHOD 07/25/2024 5:38 PM [facility] Chloride 102 96 - 110 mmol/L LAB CHEMISTRY METHOD 07/25/2024 5:38 PM [facility] CO2 28 21 - 32 mmol/L LAB CHEMISTRY METHOD 07/25/2024 5:38 PM [facility] Anion Gap 8 3 - 11 LAB CHEMISTRY METHOD 07/25/2024 5:38 PM [facility] Glucose 109(H) 70 - 100 mg/dL LAB CHEMISTRY METHOD 07/25/2024 5:38 PM [facility] BUN 15 5 - 25 mg/dL LAB CHEMISTRY METHOD 07/25/2024 5:38 PM [facility] Creatinine 1.12(H) 0.50 - 1.10 mg/dL LAB CHEMISTRY METHOD 07/25/2024 5:38 PM [facility] eGFR 54(L) >=60 mL/min/1. 73m2 LAB CHEMISTRY METHOD 07/25/2024 5:38 PM [facility] Comment:Calculation based on the??Chronic Kidney Disease Epidemiology Collaboration (CKD-EPI) equation refit??without adjustment for race. BUN/Creatinine Ratio 13.4 LAB CHEMISTRY METHOD 07/25/2024 5:38 PM [facility] Calcium 8.6 8.5 - 10.5 mg/dL LAB CHEMISTRY METHOD 07/25/2024 5:38 PM [facility] AST (SGOT) 26 10 - 42 unit/L LAB CHEMISTRY METHOD 07/25/2024 5:38 PM [facility] ALT (SGPT) 25 10 - 60 unit/L LAB CHEMISTRY METHOD 07/25/2024 5:38 PM [facility] Alkaline Phosphatase 117 42 - 121 unit/L LAB CHEMISTRY METHOD 07/25/2024 5:38 PM EDT [facility] Total Protein 7.2 6.0 - 8.0 g/dL LAB CHEMISTRY METHOD 07/25/2024 5:38 PM EDT [facility] Albumin 3.3 3.2 - 5.0 g/dL LAB CHEMISTRY METHOD 07/25/2024 5:38 PM EDT [facility] Total Bilirubin 0.3 0.0 - 1.4 mg/dL LAB CHEMISTRY METHOD 07/25/2024 5:38 PM EDT [facility] Blood Venous blood specimen / Unknown Venipuncture / Unknown 07/25/2024 4:25 PM EDT 07/25/2024 4:48 PM EDT Latrice SHIELDS LAB BLOOD ORDERABLES Final Re sult [facility] [address] [place] [address], * SCREENING MAMMOGRAPHY BI 2-VIEW BREAST INC [...] Breast cancer risk category Low (<15%) Location: [facility], [address] [place] [address], [id number], [phone] Procedure Note Latrice Garcia MD - 03/02/2024 [...] Breast cancer risk category Low (<15%) Location: [facility], [address] [place] [address], [id number], [phone] Result [facility] Jason Vides MD IMG XR PROCEDURES Final Result * Urine Albumin Creatinine Ratio (09/15/2023) [facility] Urine Albumin Creatinine Ratio Abstracted Result [facility] Provider HEALTH MAINTENANCE Final Result * Hepatitis C Screening (09/15/2023) [facility] Hepatitis C Screening Abstracted Result [facility] HEALTH MAINTENANCE Final Result * Colonoscopy (10/18/2021) [facility] Colonoscopy No Interpretation , Abstracted Anatomical Region Laterality Modality Other Result [facility] HEALTH MAINTENANCE Final Result * Cervical Cancer Screening: HPV (06/10/2016) Cervical Cancer Screening: HPV Negative, Abstracted us Historical Provider HEALTH MAINTENANCE Final Result from Last 3 Months or Most Recently Relevant to [place] [phone] [facility] Care Teams Client Service Supervisor Relationship Specialty Start Date End Date Jason Vides MD [address] [place] [address] [phone] PCP - General Internal Medicine 11/23/19
== END 2024-10-19 12:45 | disposition home or self-care (01) ==
LOC: HO.HWS 12:03
PROVIDERS: PCP Internal Medicine; Visit Provider Obstetrics & Gynecology
DX: N95.0 Postmenopausal bleeding (principal)
CPT/HCPCS: 99213

== ENCOUNTER 2024-11-09 12:52 | Day surgery (SDC) | payer BC, SELFPAY ==
[2024-11-09 13:10] VITALS: BMI 40.5
[2024-11-09 13:32] VITALS: BP 135/56; PULSE 72; RESP 16; TEMP 36.3; O2SAT 96
[2024-11-09] MEDS: Lactated Ringers 1,000 ML 100 ML IVCONT (13:34)
[2024-11-09] MEDS: Scopolamine 1.5 MG PATCH.TD.3 TRANSDERMA (13:45)
--- NOTE | 2024-11-09 14:34 | HO.ANESPROP2 ---
Documented by User: Vanessa Morel NP 11/08/24 09:59 HPI - Anesthesia Eval Consult details Narrative: 69yo F for D&C Hysteroscopy possible myomectomy,possible polypectomy PMFSH Active Problems Active Problems: All Active Problems Uterine myoma (Acute) Postmenopausal bleeding (Acute) Past Medical History Medical History Pinched nerve in neck Kidney stone Hyperlipidemia Bursitis HTN (hypertension) Family History Family History Mother HTN (hypertension) Breast cancer Maternal Grandmother Diabetes Surgical History Surgical History Hx of eye surgery History of back surgery Total knee replacement status Hx of section Social History Social History Household Members: Spouse Housing: House Alcohol intake: never Patient Tobacco Use Status: Never used Tobacco Use of substances other than those prescribed or required for medical reasons: No Advance Directives: No Advance Directives Information Provided: Yes Current occupational status: employed 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 Sexual orientation: Straight/Heterosexual Gender identity: Female Meds Allergies Allergy/AdvReac Type Severity Reaction Status Date / Time morphine Allergy Intermediate Dizziness Verified 09/21/24 07:57 Home Medications ?Medication ?Instructions ?Recorded ?Confirmed ?Last Taken ?Type atenolol 25 mg tablet 25 mg PO DAILY 09/21/24 11/09/24 History 0900 atorvastatin 20 mg tablet 20 mg PO DAILY 09/21/24 Unknown History ferrous fumarate 325 mg (106 mg 325 mg PO DAILY 09/21/24 Unknown History iron) tablet hydrochlorothiazide 12.5 mg capsule 12.5 mg PO DAILY 09/21/24 Unknown History lisinopril 5 mg tablet 5 mg PO DAILY 09/21/24 Unknown History Assessment and Plan Assessment Anesthesia Assessment: Chart Reviewed Documented by User: Loren Purcell DO 11/09/24 14:36 [facility] Past Medical History Medical History Pinched nerve in neck Kidney stone Hyperlipidemia Bursitis HTN (hypertension) Family History Family History Mother HTN (hypertension) Breast cancer Maternal Grandmother Diabetes Family history of problems with anesthesia: No Surgical History Surgical History Hx of eye surgery History of back surgery Total knee replacement status Hx of section History of Problems with Anesthesia: No Social History Social History Household Members: Spouse Housing: House Alcohol intake: never Patient Tobacco Use Status: Never used Tobacco Use of substances other than those prescribed or required for medical reasons: No Advance Directives: No Advance Directives Information Provided: Yes Current occupational status: employed 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 Sexual orientation: Straight/Heterosexual Gender identity: Female Meds Allergies Allergy/AdvReac Type Severity Reaction Status Date / Time morphine Allergy Intermediate Dizziness Verified 09/21/24 07:57 Home Medications ?Medication ?Instructions ?Recorded ?Confirmed ?Last Taken ?Type atenolol 25 mg tablet 25 mg PO DAILY 09/21/24 11/09/24 History 09 atorvastatin 20 mg tablet 20 mg PO DAILY 09/21/24 Unknown History ferrous fumarate 325 mg (106 mg 325 mg PO DAILY 09/21/24 Unknown History iron) tablet hydrochlorothiazide 12.5 mg capsule 12.5 mg PO DAILY 09/21/24 Unknown History lisinopril 5 mg tablet 5 mg PO DAILY 09/21/24 Unknown History Exam Exam Date and Time: 11/09/24 1435 Height,Weight and Vital Signs: Height 5 ft 2 in Weight 100.335 kg Vital Signs Temperature 97.4 F 11/09/24 13:32 Pulse Rate 72 11/09/24 13:32 Respiratory Rate 16 11/09/24 13:32 Blood Pressure 135/56 L 11/09/24 13:32 Pulse Oximetry 96 11/09/24 13:32 Oxygen Delivery Method Room Air 11/09/24 13:32 Temperature 97.4 F 11/09/24 13:32 Pulse Rate 72 11/09/24 13:32 Respiratory Rate 16 11/09/24 13:32 Blood Pressure 135/56 L 11/09/24 13:32 Pulse Oximetry 96 11/09/24 13:32 Oxygen Delivery Method Room Air 11/09/24 13:32 Airway Mallampati Class: II TM Dist: >3cm Neck ROM: Full Loose/Missing/Broken Teeth: Yes (broken molar right bottom jaw) Heart: S1S2 Lungs: CTAB Assessment and Plan Assessment Anesthesia Assessment: Anesthesia Plan Discussed and Chart Reviewed Final Anesthetic Review Family History of Problems with Anesthesia: No History of Problems with Anesthesia: No NPO: Yes ASA Class: II Final Preanesthetic Review: No Changes in Pt Med Stat, Meds/Allgs Chart Reviewed, Consent Obtained/Reviewed and Anes Risks/Benef Reviewed Patient Risk: Low Procedure Risk: Low Anesthetic Plan Anesthetic Plan: GA and Agree w/ Assess. and Plan Disposition: Standard PACU
--- NOTE | 2024-11-09 14:37 | MHC.SHP ---
Pre-Procedural Eval Section A - 24 Hr Update-Section A only Date of Service: 11/09/24 The patient is an INPATIENT: No Changes since office visit: No Cold of Flu in the past 2 weeks, No New Medical Problems, No Changes in Medication and No Patient answered all questions The patient has been examined within 24 hours of the surgical procedure. The History & Physical has been completed within 30 days and I have reviewed it.: Yes Section B - Complete if H&P > 30 days Chief Complaint: Postmenopausal bleeding Allergies: Allergies Allergy/AdvReac Type Severity Reaction Status Date / Time morphine Allergy Intermediate Dizziness Verified 09/21/24 07:57 Plan Diagnosis/Plan: Unchanged I have reviewed the history and physical and performed a pertinent physical examination on my patient. No changes have occurred unless specified. Time Spent With Patient Time: Total time managing care of this patient today ____ minutes.
--- NOTE | 2024-11-09 15:07 | P.OP_ITS ---
Operative Note Operative Note Date of Service: 11/09/24 Narrative: Preop Diagnosis: Postmenopausal bleeding, Endometrial polyp by EMB pathology Operation: Diagnostic Hysteroscopy, Dilataion & Curettage and polypectomy Post Op Diagnosis: Endometrial Polyp QBL: Minimal Anesthesia: GLMA Surgeon: Vignesh La MD Ecommerce Merchandising Manager: None Complication: None Pathology: Endometrial Scrapings, Endometrial polyp Procedure: The patient was put in the dorsal lithotomy position, scrubbed, and draped in the usual manner. A sterile speculum was inserted in the patient's vagina. The anterior lip of the cervix was grasped with a single tooth tenaculum. The cervix was dilated up to 5 mm, then the scope was inserted in the patient's uterus. Inspection revealed endometrial polyp. The Myosure Reach device was used; it was introduced through the operative channel and polypectomy done with no complications. The scope was then taken out from the uterine cavity, sharp curettings was carried on with minimal to moderate amount of tissues retrieved. At the end of the procedure, all instruments were taken out of the patient uterine and vaginal cavity. The single tooth tenaculum was removed and homeostasis was assured using pressure,. The patient tolerated the procedure well and was transferred to the PACU in a stable condition.
--- NOTE | 2024-11-09 15:07 | PM.OP ---
Brief Operative Note Date of Service: 11/09/24 Pre-op diagnosis: Postmenopausal bleeding, endometrial polyp by EMB pathology Post-op diagnosis: same (Endometrial polyp) Procedure: Hysteroscopy D&C, Polypectomy Surgeon: Vignesh La MD Anesthesia: GLMA Was an Delinquency Prevention Officer used for this Procedure?: No Estimated blood loss (mL): 0 Pathology: other (Endometrial Scrapping. Polyp) Condition: stable Disposition: PACU
[2024-11-09 15:13] VITALS: BP 117/53; PULSE 72; RESP 12; TEMP 36.2; O2SAT 98
[2024-11-09 15:18] VITALS: BP 125/60; PULSE 69; RESP 12; O2SAT 95
[2024-11-09 15:22] VITALS: BP 132/64; PULSE 71; RESP 16; O2SAT 96
[2024-11-09 15:28] VITALS: BP 128/55; PULSE 64; RESP 16; O2SAT 98
[2024-11-09 15:43] VITALS: BP 131/56; PULSE 61; RESP 16; TEMP 36.6; O2SAT 98
== END 2024-11-09 15:52 | disposition home or self-care (01) ==
PROVIDERS: PCP Internal Medicine; Visit Provider Obstetrics & Gynecology
PROC: 0UDB8ZZ Extraction of Endometrium, Via Natural or Artificial Opening Endoscopic (ICD-10-PCS; CPT 58558; principal; 2024-11-09 14:30)
DX: N95.0 Postmenopausal bleeding (principal); N84.0 Polyp of corpus uteri; E78.5 Hyperlipidemia, unspecified; I10 Essential (primary) hypertension; M71.9 Bursopathy, unspecified; Z88.5 Allergy status to narcotic agent; Z87.442 Personal history of urinary calculi; Z98.890 Other specified postprocedural states
CPT/HCPCS: 58558; 88305; J1100; J2003; J2405; J2704; J3010

== ENCOUNTER → 2024-11-09 12:52 | Outpatient (BNV) | payer BC, SELFPAY | PROVIDERS: PCP Internal Medicine; Visit Provider Obstetrics & Gynecology | DX: N84.0 Polyp of corpus uteri (principal); N95.0 Postmenopausal bleeding | CPT/HCPCS: 58558 ==

== ENCOUNTER 2024-11-23 12:14 | Outpatient (AMB) | payer BC, SELFPAY ==
--- NOTE | 2024-11-23 12:15 | A.OFFVIS_ITS ---
Intake Visit Reasons: post op Allergies morphine Allergy (Intermediate, Verified 09/21/24 07:57) Dizziness HPI Comments Details: The patient scheduled a telehealth visit post hysteroscopy D&C no complaints minimal vaginal bleeding no feverishness chills or abdominal pain. The pathology showed the following: A. Endometrium, polypectomy: - Fragments of endometrial polyp. - Relatively numerous fragments of prominent haphazard smooth muscle consistent with leiomyoma(ta). - No atypia identified. B. Endometrium, curettage: - Fragment of endometrial polyp. - Superficial fragments of inactive endometrium; abundant blood. - No atypia identified. 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 Sexual orientation: Straight/Heterosexual Gender identity: Female Review of Systems Const All systems reviewed & are unremarkable except as noted in HPI and below Reports as per HPI and Reports no additional complaints GI Reports no additional complaints Reports no additional complaints Telehealth Telehealth Telehealth Platform: [facility] Location of provider rendering services: practice address Location of patient: other Patient Identification confirmed using: Name, : Yes Telehealth method: video Patient verbally consented to treatment: Yes Patient verbally consented to billing insurance company: Yes Patient informed of any privacy concerns related to visit: Yes Minutes spent on Phone/Video with Pt.: 2 Assessment & Plan Assessment & Plan (1) Postmenopausal bleeding: Comment: Endometrial polyp status post hysteroscopic polypectomy Code(s): N95.0 - Postmenopausal bleeding Category: Medical Plan: Discussed with the patient the results of the intraoperative findings and pathology results. Discussed with the patient the sensitivity, specificity, positive and negative predictive value, of endometrial biopsy in detecting endometrial pathology including but not limited to endometrial hyperplasia, cancer and other pathology; instructed the patient to call in case vaginal bleeding recurs, the next step will be to proceed with further endometrial sampling evaluation to rule out endometrial pathology. All questions answered and the patient verbalized understanding and agreed with the plan. I spent a total of 20 minutes reviewing the chart, talking to the patient via video and documenting in the medical record. Coding Level of Care Code Tele Est Pt Level 3 (94702) Diagnoses Postmenopausal bleeding N95.0
--- OUTSIDE RECORDS SUMMARY | 2024-11-23 13:16 | XMS_ITS | Encounter Summary ---
Author Organization [facility] Address [address] [place] [address] Care Team Providers Care Commissary Clerk Name Role Phone Matthew Pineda MD Primary Care Provider Augusto Ruiz MD Primary Care Provider Unavail able Jelani Riddle MD Primary Care Provider Unavail able Jason Vides MD Primary Care Provider [phone] Encounter Details Date Type Department Care Team Description 02/13/2014 Cardiac Monitor Technician Report Medical Records [address] [place] [id number] Ayanna Cassidy Social History Tobacco Use Types [...] on filedocumented in this encounter Care Teams Commissary Clerk Relationship Specialty Start Date End Date Matthew Pineda MD PCP - General Internal Medicine 04/23/11 Augusto Osorio MD PCP - General Internal Medicine 07/06/14 02/26/15 Jelani Riddle MD PCP - General Internal Medicine 02/27/15 11/22/19 Jason Vides MD [address] [place] [address] [id number] PCP - General Internal Medicine 11/23/19 documented as of this encounter
--- OUTSIDE RECORDS SUMMARY | 2024-11-23 13:16 | XMS_ITS | Clinical Summary ---
Author Organization 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 She then had vomiting and an itchy face Oxycodone-Acetaminophe n 12/08/2021 I get loopy Medications albuterol HFA (PROAIR HFA ; PROVENTIL HFA ; VENTOLIN HFA) 90 mcg/actuation inhaler Inhale 2 Puffs into the lungs 4 times daily as needed for Cough or Wheezing. 1 Active blood-glucose meter kit Test daily 1 Active FREESTYLE LANCETS MISC Test daily 1 Active atenoloL (TENORMIN) 25 mg tablet TAKE 1 TABLET BY MOUTH DAILY 90 tablet 1 4 Active omeprazole (PriLOSEC) [address] capsule TAKE 1 CAPSULE BY MOUTH DAILY 90 capsule 1 4 Active lisinopriL (PRINIVIL,ZESTR IL) 5 mg tablet TAKE 1 TABLET BY MOUTH DAILY 90 tablet 1 5 Active hydroCHLOROthia zide 12.5 mg tablet TAKE 1 TABLET BY MOUTH DAILY 90 tablet 1 5 Active atorvastatin (LIPITOR) 20 mg tablet Take 1 tablet (20 mg total) by mouth at bedtime. at bedtime. 90 each 1 5 Active ferrous sulfate 325 mg (65 mg iron) EC tablet Take 1 tablet (325 mg total) by mouth 1 (one) time each day. Do not crush, chew, or split. 90 each 1 5 Active bisacodyL (DULCOLAX) 5 mg EC tablet Take 2 tablets by mouth right before beginning bowel prep. See instructions provided by the office 2 tablet 5 Active polyethylene glycol (Golytely) 236-22.74-6.74 -5.86 gram solution Take 4L by mouth once for one dose. May substitue any PEG. Starting at 6PM the night before your procedure drink 1 8oz glasses at your own pace until you complete half of the gallon. Finish 2nd half of the gallon 5 hours before your procedure. 4000 mL 5 Active Active Problems Problem Noted Date Diagnosed Date Morbid obesity with BMI of 4 0.0-44.9, adult ([facility] V24, [facility] V28) 04/21/2024 Gastroesophageal reflux disease without esophagi tis 03/02/2023 CKD (chronic kidney disease) stage 3, GFR 30-59 ml/min ([facility] V24, [facility] V28) 03/06/2022 Type II diabetes mellitus wi th renal manifestations ([facility] V24, [facility] V28) 01/09/2020 Asthma in adult 05/03/2015 Hyperlipidemia [...] Encounters Date Type Department Care Team Description 11/15/2024 8:43 AM EDT Anesthesia Event [facility] Endoscopy [address] [place] [phone] Lynn Perkins MD Hayes, Brett L, GROCERY CADDY 11/15/2024 7:47 AM EDT - 11/15/2024 11:59 PM EDT Hospital Encounter [facility] End[facility] [address] [place] [phone] Adrienne Giron MD Freeman, Katharine O, MD Hayes, Brett L, GROCERY CADDY Colon polyps; Anemia, unspecified type Discharge Disposition: Home or Self Care 10/31/2024 2:45 PM EDT Office Visit [facility] Hematology Oncology [address] [place] [phone] Latrcie Pineda PA Anemia, unspecified type (Primary Dx); Adenomatous polyp of colon, unspecified part of colon; History of postmenopausal bleeding 10/22/2024 9:15 AM EDT Clinic Lab [facility] - [address] [phone] Anemia, unspecified type; Adenomatous polyp of colon, unspecified part of [...] HISTORICAL BACK SURGERY KIDNEY STONE SURGERY PROCEDURE: LA NEPHROLITHOTOMY REMOVAL CALCULUS SECTION PROCEDURE: HISTORICAL DELIVERY; [...] BREAST; PERC NEEDLE CORE W/IMAG GUID; COMMENT: 2019 Medical History Medical History Date Comments Unspecified [...] 03/02/2023 DX:Gastroesophageal reflux d isease without esophagitis Hyperlipidemia Family History Medical History Relation Name Comments [...] drink = 0.6 oz pur e alcohol) Interpersonal Safety Answer Date Record ed Physical Abuse 11/15/2024 Verbal Abuse 11/15/2024 Comments Unknown Sex and Gender Information Value Date Recorded Sex Assigned at Not on file Legal Sex Female 7:06 PM EST Gender Identity Not on file Sexual Orientation Not on file Travel History Travel Start Travel End [place] 11/06/2024 11/06/2024 Obstetrics History Last Filed Vital Signs Vital Sign Reading Time Taken Comments Blood Pressure 130/69 11/15/2024 9:32 AM EDT Pulse 69 11/15/2024 9:32 AM EDT Temperature 36.3 C (97.3 F) 11/15/2024 9:12 AM EDT Respiratory Rate 18 11/15/2024 9:32 AM EDT Oxygen Saturation 98% 11/15/2024 9:32 AM EDT Inhaled Oxygen Concentration - - Weight 102 kg (224 lb) 11/08/2024 10:00 AM EDT Height 157.5 cm (5' 2 ) 11/08/2024 10:00 AM EDT Body Mass Index 40.97 11/08/2024 10:00 AM EDT Plan of Treatment Upcoming Encounters Date Type Department Care Team (Late st Contact Info) Description 12/28/2024 10:00 AM EDT Office Visit Adult Medicine [address] [phone] Cristopher Price PA [address] [place] [phone] 01/31/2025 8:30 AM EDT Office Visit [facility] Hematology Oncology [address] [place] [phone] Latrice Pineda PA [address] [place] [address] 02/25/2025 8:30 AM EDT Appointment Radiology Department - [address] [phone] Health Maintenance Due Date Last Done Comments Diabetes: Annual Foot Exam 1967 Diabetes: Annual Retina Eye Exam 1965 Zoster Vaccines (1 of 2) 1976 RSV Immunization Adult Patients (1 - Risk 60-74 years 1-dose series) 2017 Pneumococcal Vaccine: 50+ Years (2 of 2 - PCV) 06/04/2019 06/04/2018 Cervical Cancer Screening: HPV 06/10/2021 06/10/2016 Depression Screening 04/26/2022 Osteoporosis Screening (Bone Density Screening) 04/26/2022 Social Influencers of Health Screening 04/26/2022 COVID-19 Vaccine ( season) 2024 05/04/2021, 09/06/2020, 08/16/2020 Diabetes: Annual Urine Albumin-Creatinine Ratio (uACR) 09/14/2024 09/15/2023 Influenza Vaccine (#1) 2025 , 03/06/2022, 06/26/2021, Additional history exists Diabetes: Blood Sugar Control Test (HGBA1C) 01/30/2025 07/30/2024, 09/15/2023, 09/15/2023 Diabetes: Annual GFR (Glomerular Filtration Rate) 10/22/2025 10/22/2024, 07/25/2024, 04/26/2024, Additional history exists Hypertension/CHF/CAD Annual BMP Blood Test 10/22/2025 10/22/2024, 07/25/2024, 04/26/2024, Additional history exists Falls Risk Assessment 11/15/2025 11/15/2024 Breast Cancer Screening 02/12/2026 02/13/20 24, 02/13/2024, 01/10/2023, Additional history exists Colorectal Cancer Screening: Colonoscopy 11/16/2027 11/15/2024, 10/18/2021 Cholesterol Screening (Lipid Panel) 07/30/2029 07/30/2024, 09/15/2023, [...] Procedure Name Priority Date/Time Associated Diagnosis Comments EGD Routine 11/15/2024 9:11 AM EDT Colon polyps Anemia, unspecified type COLONOSCOPY Routine 11/15/2024 9:11 AM EDT Colon polyps Anemia, unspecified type TISSUE EXAM Routine 11/15/2024 8:54 AM EDT Colon polyps Anemia, unspecified type CBC WITH AUTO DIFFERENTIAL Routine 10/22/2024 9:14 AM EDT Anemia, unspecified type Adenomatous polyp of colon, unspecified part of colon History of postmenopausal bleeding CBC AND DIFFERENTIAL Routine 10/22/2024 9:14 AM EDT Anemia, unspecified type Adenomatous polyp of colon, unspecified part of colon History of postmenopausal bleeding BASIC METABOLIC PANEL Routine 10/22/2024 9:14 AM EDT Anemia, unspecified type Adenomatous polyp of colon, unspecified part of colon History of postmenopausal bleeding FERRITIN Routine 10/22/2024 9:14 AM EDT Anemia, unspecified type Adenomatous polyp of colon, unspecified part of colon History of postmenopausal bleeding IRON AND TIBC Routine 10/22/2024 9:14 AM EDT Anemia, unspecified type Adenomatous polyp of colon, unspecified part of colon History of postmenopausal bleeding HEMOGLOBIN A1C Routine 07/30/2024 9:36 AM EDT Type 2 diabetes mellitus with chronic kidney disease, without long-term current use of insulin, unspecified CKD stage (CMS/HCC V24, CMS/[facility] V28) LIPID PANEL WITH REFLEX TO DIRECT LDL Routine 07/30/2024 9:36 AM EDT Type 2 diabetes mellitus with chronic kidney disease, without long-term current use of insulin, unspecified CKD stage (CMS/HCC V24, CMS/HCC V28) Hyperlipidemia, unspecified hyperlipidemia type SCREENING MAMMOGRAPHY BI 2-VIEW BREAST INC CAD Routine 02/13/2024 10:37 AM EDT Encounter for screening mammogram for malignant neoplasm of breast HEPATITIS C SCREENING Routine 09/15/2023 URINE ALBUMIN CREATININE RATIO Routine 09/15/2023 HM HPV Routine 06/10/2016 from Last 3 Months or Most Recently Relevant to Health Maintenance Results * COLONOSCOPY Anesthesia - MAC; [facility] ENDOSCOPY (11/15/2024 9:11 AM EDT) Anatomical Region Laterality Modality Endoscopy 11/15/2024 8:44 AM EDT Impressions 11/15/2024 9:15 AM EDT - One 4 mm polyp in the transverse colon, removed with a cold snare. Resected and retrieved. - The examination was otherwise normal on direct and retroflexion views. Recommendation: - Discharge patient to home. - Await pathology results. - Repeat colonoscopy in 5 years for surveillance. Narrative 11/15/2024 9:15 AM EDT [facility] GI Patient Name: Adelaida Jones Procedure Date: 11/15/2024 8:44 AM Date of : 1955 Age: 69 Gender: Female Note Status: Finalized Attending MD: Adrienne Giron MD, Procedure Date No Time: 11/15/2024 Procedure: Colonoscopy Indications: Unexplained iron deficiency anemia Providers: Adrienne Giron MD Referring MD: Adrienne Giron MD Medicines: Monitored Anesthesia Care Complications: No immediate complications. Estimated blood loss: Minimal. Estimated Blood Loss: Estimated blood loss was minimal. Procedure: Pre-Anesthesia Assessment: - Prior to the procedure, a History and Physical was performed, and patient medications and allergies were reviewed. The patient is competent. The risks and benefits of the procedure and the sedation options and risks were discussed with the patient. All questions were answered and informed consent was obtained. Patient identification and proposed procedure were verified by the physician, the nurse, the machine feeder raw stock and the systems protection technician in the pre-procedure area in the endoscopy suite. Mental Status Examination: alert and oriented. Airway Examination: normal oropharyngeal airway and neck mobility. Respiratory Examination: clear to auscultation. CV Examination: normal. Prophylactic Antibiotics: The patient does not require prophylactic antibiotics. Prior Anticoagulants: The patient has taken no anticoagulant or antiplatelet agents. ASA Grade Assessment: III - A patient with severe systemic disease. After reviewing the risks and benefits, the patient was deemed in satisfactory condition to undergo the procedure. The anesthesia plan was to use monitored anesthesia care (MAC). Immediately prior to administration of medications, the patient was re-assessed for adequacy to receive sedatives. The heart rate, respiratory rate, oxygen saturations, blood pressure, adequacy of pulmonary ventilation, and response to care were monitored throughout the procedure. The physical status of the patient was re-assessed after the procedure. After I obtained informed consent, the scope was passed under direct vision. Throughout the procedure, the patient's blood pressure, pulse, and oxygen saturations were monitored continuously.The Olympus Colonoscope was introduced through the anus and advanced to the terminal ileum, with identification of the appendiceal orifice and IC valve. The patient tolerated the procedure well. The quality of the bowel preparation was good. Findings: The perianal and digital rectal examinations were normal. A 4 mm polyp was found in the transverse colon. The polyp was sessile. The polyp was removed with a cold snare. Resection and retrieval were complete. Estimated blood loss was minimal. The exam was otherwise without abnormality on direct and retroflexion views. Procedure Code(s): --- Professional --- 00380, Colonoscopy, flexible; with removal of tumor(s), polyp(s), or other lesion(s) by snare technique Diagnosis Code(s): --- Professional --- D12.3, Benign neoplasm of transverse colon (hepatic flexure or splenic flexure) CPT copyright 2020 [employer]. All rights reserved. The codes documented in this report are preliminary and upon digital marketing executive review may be revised to meet current compliance requirements. Adrienne Giron MD 11/15/2024 9:15:44 AM This report has been signed electronically.Adrienne Giron MD Number of Addenda: 0 Note Initiated On: 11/15/2024 8:44 AM Scope Withdrawal Time: 0 hours 6 minutes 1 second Scope In: 8:49:10 AM Scope Out: 8:58:23 AM Endoscopy Department at [facility] - [address] [place] [phone] Procedure Note Adrienne Giron MD - 11/15/2024 [facility] GI Patient Name: Adelaida Jones Procedure Date: 11/15/2024 8:44 AM Date of : 1955 Age: 69 Gender: Female Note Status: Finalized Attending MD: Adrienne Giron MD, Procedure Date No Time: 11/15/2024 Procedure: Colonoscopy Indications: Unexplained iron deficiency anemia Providers: Adrienne Giron MD Referring MD: Adrienne Giron MD Medicines: Monitored Anesthesia Care Complications: No immediate complications. Estimated blood loss: Minimal. Estimated Blood Loss: Estimated blood loss was minimal. Procedure: Pre-Anesthesia Assessment: - Prior to the procedure, a History and Physicalwas performed, and patient medications and allergieswere reviewed. The patient is competent. The risks and benefits of the procedure and the sedation optionsand risks were discussed with the patient. Allquestions were answered and informed consent was obtained. Patient identification and proposed procedure were verified by the physician, the nurse, theanesthetist and the systems protection technician in the pre-procedure area in the endoscopy suite. Mental Status Examination: alertand oriented. Airway Examination: normal oropharyngeal airway and neck mobility. Respiratory Examination: clear to auscultation. CV Examination: normal. Prophylactic Antibiotics: The patient does notrequire prophylactic antibiotics. Prior Anticoagulants: The patient has taken no anticoagulant or antiplatelet agents. ASA Grade Assessment: III - A patient with severe systemic disease. After reviewing the risksand benefits, the patient was deemed in satisfactory condition to undergo the procedure. The anesthesia plan was to use monitored anesthesia care (MAC). Immediately prior to administration of medications, the patient was re-assessed for adequacy to receive sedatives. The heart rate, respiratory rate, oxygen saturations, blood pressure, adequacy of pulmonary ventilation, and response to care were monitored throughout the procedure. The physical status ofthe patient was re-assessed after the procedure. After I obtained informed consent, the scope was passed under direct vision. Throughout theprocedure, the patient's blood pressure, pulse, and oxygen saturations were monitored continuously.The Olympus Colonoscope was introduced through the anus and advanced to the terminal ileum, with identificationof the appendiceal orifice and IC valve. The patient tolerated the procedure well. The quality of thebowel preparation was good. Findings: The perianal and digital rectal examinations were normal. A 4 mm polyp was found in the transverse colon. The polyp was sessile. The polyp was removed with acold snare. Resection and retrieval were complete. Estimated blood loss was minimal. The exam was otherwise without abnormality ondirect and retroflexion views. Procedure Code(s): --- Professional --- 56393, Colonoscopy, flexible; with removal of tumor(s), polyp(s), or other lesion(s) by snare technique Diagnosis Code(s): --- Professional --- D12.3, Benign neoplasm of transverse colon (hepatic flexure or splenic flexure) CPT copyright 2020 [employer]. All rights reserved. The codes documented in this report are preliminary and upon digital marketing executive reviewmay be revised to meet current compliance requirements. Adrienne Giron MD 11/15/2024 9:15:44 AM This report has been signed electronically.Adrienne Giron MD Number of Addenda: 0 Note Initiated On: 11/15/2024 8:44 AM Scope Withdrawal Time: 0 hours 6 minutes 1 second Scope In: 8:49:10 AM Scope Out: 8:58:23 AM Endoscopy Department at [facility] - [address] [place] [phone] IMPRESSION: - One 4 mm polyp in the transverse colon, removed with a cold snare. Resected and retrieved. - The examination was otherwise normal on directand retroflexion views. Recommendation: - Discharge patient to home. - Await pathology results. - Repeat colonoscopy in 5 years for surveillance. us Adrienne Giron MD GI~PROCEDURE ORDERABLES Fin al Result * EGD Anesthesia - MAC; [facility] ENDOSCOPY (11/15/2024 9:11 AM EDT) Anatomical Region Laterality Modality Endoscopy 11/15/2024 8:44 AM EDT Impressions 11/15/2024 9:14 AM EDT - Normal examined duodenum. Biopsied. - Two fundic gland polyps. Resected and retrieved. - Multiple fundic gland polyps. - Granular gastric mucosa. Biopsied. - Normal esophagus. Recommendation: - Discharge patient to home. - Await pathology results. - Return to referring physician as previously scheduled. Narrative 11/15/2024 9:14 AM EDT [facility] GI Patient Name: Adelaida Jones Procedure Date: 11/15/2024 8:44 AM Date of : 1955 Age: 69 Gender: Female Note Status: Finalized Attending MD: Adrienne Giron MD, Procedure Date No Time: 11/15/2024 Procedure: Upper GI endoscopy Indications: Suspected upper gastrointestinal bleeding in patient with unexplained iron deficiency anemia Providers: Adrienne Giron MD Referring MD: Adrienne Giron MD Medicines: Monitored Anesthesia Care Complications: No immediate complications. Estimated blood loss: Minimal. Estimated Blood Loss: Estimated blood loss was minimal. Procedure: Pre-Anesthesia Assessment: - Prior to the procedure, a History and Physical was performed, and patient medications and allergies were reviewed. The patient is competent. The risks and benefits of the procedure and the sedation options and risks were discussed with the patient. All questions were answered and informed consent was obtained. Patient identification and proposed procedure were verified by the physician, the nurse, the machine feeder raw stock and the systems protection technician in the pre-procedure area in the endoscopy suite. Mental Status Examination: alert and oriented. Airway Examination: normal oropharyngeal airway and neck mobility. Respiratory Examination: clear to auscultation. CV Examination: normal. Prophylactic Antibiotics: The patient does not require prophylactic antibiotics. Prior Anticoagulants: The patient has taken no anticoagulant or antiplatelet agents. ASA Grade Assessment: III - A patient with severe systemic disease. After reviewing the risks and benefits, the patient was deemed in satisfactory condition to undergo the procedure. The anesthesia plan was to use monitored anesthesia care (MAC). Immediately prior to administration of medications, the patient was re-assessed for adequacy to receive sedatives. The heart rate, respiratory rate, oxygen saturations, blood pressure, adequacy of pulmonary ventilation, and response to care were monitored throughout the procedure. The physical status of the patient was re-assessed after the procedure. After obtaining informed consent, the endoscope was passed under direct vision. Throughout the procedure, the patient's blood pressure, pulse, and oxygen saturations were monitored continuously.The Endoscope was introduced through the mouth, and advanced to the second part of duodenum. The upper GI endoscopy was accomplished without difficulty. The patient tolerated the procedure well. Findings: The examined duodenum was normal. Biopsies were taken with a cold forceps for histology. Estimated blood loss was minimal. Two small sessile fundic gland polyps with bleeding and stigmata of recent bleeding were found in the stomach. The polyp was removed with a cold snare. Resection and retrieval were complete. Estimated blood loss was minimal. Multiple 4 to 8 mm sessile fundic gland polyps with no bleeding and no stigmata of recent bleeding were found in the entire examined stomach. Diffuse granular mucosa was found in the gastric body and in the gastric antrum. Biopsies were taken with a cold forceps for histology. Estimated blood loss was minimal. The esophagus was normal. Procedure Code(s): --- Professional --- 18629, Esophagogastroduodenoscopy, flexible, transoral; with removal of tumor(s), polyp(s), or other lesion(s) by snare technique 99580, 59, Esophagogastroduodenoscopy, flexible, transoral; with biopsy, single or multiple Diagnosis Code(s): --- Professional --- K31.7, Polyp of stomach and duodenum K31.89, Other diseases of stomach and duodenum D50.9, Iron deficiency anemia, unspecified CPT copyright 2020 [employer]. All rights reserved. The codes documented in this report are preliminary and upon digital marketing executive review may be revised to meet current compliance requirements. Adrienne Giron MD 11/15/2024 9:14:02 AM This report has been signed electronically.Adrienne Giron MD Number of Addenda: 0 Note Initiated On: 11/15/2024 8:44 AM Scope In: Scope Out: Endoscopy Department at [facility] - [address] [place] [phone] Procedure Note Adrienne Giron MD - 11/15/2024 [facility] GI Patient Name: Adelaida Jones Procedure Date: 11/15/2024 8:44 AM Date of : 1955 Age: 69 Gender: Female Note Status: Finalized Attending MD: Adrienne Giron MD, Procedure Date No Time: 11/15/2024 Procedure: Upper GI endoscopy Indications: Suspected upper gastrointestinal bleeding inpatient with unexplained iron deficiency anemia Providers: Adrienne Giron MD Referring MD: Adrienne Giron MD Medicines: Monitored Anesthesia Care Complications: No immediate complications. Estimated blood loss: Minimal. Estimated Blood Loss: Estimated blood loss was minimal. Procedure: Pre-Anesthesia Assessment: - Prior to the procedure, a History and Physicalwas performed, and patient medications and allergieswere reviewed. The patient is competent. The risks and benefits of the procedure and the sedation optionsand risks were discussed with the patient. Allquestions were answered and informed consent was obtained. Patient identification and proposed procedure were verified by the physician, the nurse, theanesthetist and the systems protection technician in the pre-procedure area in the endoscopy suite. Mental Status Examination: alertand oriented. Airway Examination: normal oropharyngeal airway and neck mobility. Respiratory Examination: clear to auscultation. CV Examination: normal. Prophylactic Antibiotics: The patient does notrequire prophylactic antibiotics. Prior Anticoagulants: The patient has taken no anticoagulant or antiplatelet agents. ASA Grade Assessment: III - A patient with severe systemic disease. After reviewing the risksand benefits, the patient was deemed in satisfactory condition to undergo the procedure. The anesthesia plan was to use monitored anesthesia care (MAC). Immediately prior to administration of medications, the patient was re-assessed for adequacy to receive sedatives. The heart rate, respiratory rate, oxygen saturations, blood pressure, adequacy of pulmonary ventilation, and response to care were monitored throughout the procedure. The physical status ofthe patient was re-assessed after the procedure. After obtaining informed consent, the endoscope was passed under direct vision. Throughout theprocedure, the patient's blood pressure, pulse, and oxygen saturations were monitored continuously.TheEndoscope was introduced through the mouth, and advanced tothe second part of duodenum. The upper GI endoscopy was accomplished without difficulty. The patienttolerated the procedure well. Findings: The examined duodenum was normal. Biopsies weretaken with a cold forceps for histology. Estimated blood loss was minimal. Two small sessile fundic gland polyps with bleeding and stigmata of recent bleeding were found in the stomach. The polyp was removed with a cold snare. Resection and retrieval were complete. Estimatedblood loss was minimal. Multiple 4 to 8 mm sessile fundic gland polyps withno bleeding and no stigmata of recent bleeding werefound in the entire examined stomach. Diffuse granular mucosa was found in the gastricbody and in the gastric antrum. Biopsies were taken witha cold forceps for histology. Estimated blood losswas minimal. The esophagus was normal. Procedure Code(s): --- Professional --- 29786, Esophagogastroduodenoscopy, flexible, transoral; with removal of tumor(s), polyp(s), or other lesion(s) by snare technique 01152, 59, Esophagogastroduodenoscopy, flexible, transoral; with biopsy, single or multiple Diagnosis Code(s): --- Professional --- K31.7, Polyp of stomach and duodenum K31.89, Other diseases of stomach and duodenum D50.9, Iron deficiency anemia, unspecified CPT copyright 2020 [employer]. All rights reserved. The codes documented in this report are preliminary and upon digital marketing executive reviewmay be revised to meet current compliance requirements. Adrienne Giron MD 11/15/2024 9:14:02 AM This report has been signed electronically.Adrienne Giron MD Number of Addenda: 0 Note Initiated On: 11/15/2024 8:44 AM Scope In: Scope Out: Endoscopy Department at [facility] - [address] [place] [id number] IMPRESSION: - Normal examined duodenum. Biopsied. - Two fundic gland polyps. Resected andretrieved. - Multiple fundic gland polyps. - Granular gastric mucosa. Biopsied. - Normal esophagus. Recommendation: - Discharge patient to home. - Await pathology results. - Return to referring physician as previously scheduled. us Adrienne Giron MD GI~PROCEDURE ORDERABLES Fin al Result * Tissue exam (11/15/2024 8:54 AM EDT) Final Diagnosis A. Polyp, transverse colon, polypectomy: - Tubular adenoma. B. Duodenum, biopsy: - Small bowel mucosa with focally prominent glands; otherwise no diagnostic histopathologic change. - Villous architecture is generally preserved and there is no increase in intraepithelial lymphocytes. C. Stomach, biopsy: - Gastric antral mucosa with scant chronic inflammation and a focus of active inflammation (rare intraepithelial neutrophils). - Gastric oxyntic-type mucosa with some features suggestive of proton pump inhibitor (PPI) effect. - No intestinal metaplasia identified. - No Helicobacter pylori are identified on hematoxylin and eosin stained sections; however, because of the finding of focal active inflammation, an immunohistochemical study was performed to further assess for the possibility of Helicobacter pylori. The immunohistochemical study is negative (appropriate control reviewed). D. Polyps (x2 per specimen label), stomach, polypectomy: - Fundic gland polyp(s) (multiple fragments) with patchy chronic inflammation, negative for dysplasia. 8:19 AM [facility] Gross Description A. Large Intestine, Transverse Colon, polyp: Labeled trans colon, transverse . Received in formalin is a 0.8 x 0.5 x 0.2 cm irregular locke-white mucosal tissue fragment with an eccentric 0.3 x 0.2 x 0.1 cm pink-red mucosal polyp. The margin is inked black. The specimen is bisected, wrapped in paper, and entirely submitted in one cassette, two pieces, multiple levels on one slide. B. Small Intestine, Duodenum, biopsies: Labeled duodenum biopsy . Received in formalin are four irregular locke mucosal tissue fragments, ranging from 0.1 cm to 0.3 cm in greatest dimension, which are wrapped in paper and submitted in toto in one cassette, four pieces, multiple levels on one slide. C. Stomach, gastric biopsies: Labeled stomach, gastric b . Received in formalin are three irregular locke mucosal tissue fragments, ranging from 0.3 cm to 0.8 cm in greatest dimension, which are wrapped in paper and submitted in toto in one cassette, three pieces, multiple levels on one slide. D. Stomach, gastric polyps x2: Labeled stomach, gastric p . Received in formalin are four irregular locke to pink-red mucosal tissue fragments, ranging from less than 0.1 cm to 1.2 cm in greatest dimension, which are wrapped in paper and submitted in toto in one cassette, four pieces, multiple levels on one slide. VIVIANA 8:[address] [facility] Disclaimer NOTE: The immunohistochemical tests and in situ hybridization tests were developed and their performance characteristics were determined by [facility]. They have not been cleared or approved by the U.S. Food and Drug Administration. The FDA has determined that such clearance or approval is not necessary. These tests are used for clinical purposes. They should not be regarded as investigational or for research. This laboratory is certified under the Clinical Laboratory Improvement Amendments of 1988 (CLIA) as qualified to perform high complexity clinical laboratory testing. (controls appropriate) Unless otherwise specified, all tissue is 10% NB formalin fixed and paraffin embedded. 8:[address] [facility] Tissue Transverse colon structure / Unknown 11/15/2024 8:54 AM EDT 11/15/2024 9:41 AM EDT Tissue specimen (specimen) Duodenal structure / Unknown 11/15/2024 9:03 AM EDT 11/15/2024 9:41 AM EDT Tissue specimen (specimen) Stomach structure / Unknown 11/15/2024 9:04 AM EDT 11/15/2024 9:41 AM EDT Tissue specimen (specimen) Stomach structure / Unknown 11/15/2024 9:06 AM EDT 11/15/2024 9:41 AM EDT Adrienne Giron MD LAB PATHOLOGY ORDERABLES Fi nal Result [facility] [address] [place] [address], * (ABNORMAL) CBC auto differential (10/22/2024 9:14 AM EDT) WBC 7.4 4.8 - 10.8 K/[facility] HEMETOLOGY METHOD 10/22/2024 5:[address] [facility] RBC 4.50 3.80 - 4.80 M/mcL LAB HEMETOLOGY METHOD 10/22/2024 5:[address] [facility] Hemoglobin 11.3(L) 11.5 - 16.0 g/dL LAB HEMETOLOGY METHOD 10/22/2024 5:[address] [facility] Hematocrit 38.1 35.0 - 47.0 % LAB HEMETOLOGY METHOD 10/22/2024 5:[address] [facility] MCV 85.0 79.0 - 98.0 FL LAB HEMETOLOGY METHOD 10/22/2024 5:[address] [facility] MCH 25.2(L) 27.0 - 32.0 pcg LAB HEMETOLOGY METHOD 10/22/2024 5:[address] [facility] MCHC 29.7(L) 32.0 - 37.0 g/dL LAB HEMETOLOGY METHOD 10/22/2024 5:[address] [facility] RDW 15.5(H) 11.0 - 15.0 % LAB HEMETOLOGY METHOD 10/22/2024 5:[address] [facility] Platelets 290 130 - 400 K/mcL LAB HEMETOLOGY METHOD 10/22[facility]2024 5[facility] MPV 11.0 7.0 - 11.0 FL LAB HEMETOLOGY METHOD 10/22/2024 5:[address] [facility] NRBC 0.0 <1.0 % LAB HEMETOLOGY METHOD 10/22/2024 5:[address] [facility] NRBC Absolute 0.00 <0.10 K/mcL LAB HEMETOLOGY METHOD 10/22/2024 5:[address] [facility] Neutrophils Relative 60.2 % LAB HEMETOLOGY METHOD 10/22/2024 5:[address] [facility] Lymphocytes Relative 28.8 % LAB HEMETOLOGY METHOD 10/22/2024 5:[address] [facility] Monocytes Relative 8.3 % LAB HEMETOLOGY METHOD 10/22/2024 5:[address] [facility] Eosinophils Relative 1.3 % LAB HEMETOLOGY METHOD 10/22/2024 5:[address] [facility] Basophils Relative 0.9 % LAB HEMETOLOGY METHOD 10/22/2024 5:[address] [facility] Immature Granulocytes Relative 0.5 % LAB HEMETOLOGY METHOD 10/22/2024 5:[address] [facility] Neutrophils Absolute 4.47 1.50 - 7.00 K/mcL LAB HEMETOLOGY METHOD 10/22/2024 5:50 [facility] Lymphocytes Absolute 2.14 1.00 - 5.00 K/mcL LAB HEMETOLOGY METHOD 10/22/2024 5:50 PM [facility] Monocytes Absolute 0.62 0.20 - 1.00 K/mcL LAB HEMETOLOGY METHOD 10/22/2024 5:[address] [facility] Eosinophils Absolute 0.10 0.00 - 0.50 K/mcL LAB HEMETOLOGY METHOD 10/22/2024 5:50 PM [facility] Basophils Absolute 0.07 0.00 - 0.20 K/mcL LAB HEMETOLOGY METHOD 10/22/2024 5:[address] [facility] Immature Granulocytes Absolute 0.04(H) 0.00 - 0.03 K/mcL LAB HEMETOLOGY METHOD 10/22/2024 5:50 PM [facility] Blood Venous blood specimen / Unknown Venipuncture / Unknown 10/22/2024 9:14 AM EDT 10/22/2024 9:14 AM EDT us Latrice SHIELDS LAB BLOOD ORDERABLES Final Re sult Performing Organization Address City/[facility]/ZIP Co de Phone Number [facility] [address] [place] [address], [place] [phone] * (ABNORMAL) Iron and TIBC (10/22/2024 9:14 AM EDT) Iron 37(L) 40 - 150 mcg/dL LAB CHEMISTRY METHOD 10/22/2024 5:[address] [facility] TIBC 339 250 - 450 mcg/dL LAB CHEMISTRY METHOD 10/22/2024 5:[address] [facility] Iron Saturation 11(L) 15 - 50 % LAB CHEMISTRY METHOD 10/22/2024 5:[address] [facility] Blood Venous blood specimen / Unknown Venipuncture / Unknown 10/22/2024 9:14 AM EDT 10/22/2024 9:14 AM EDT Latrice SHIELDS LAB BLOOD ORDERABLES Final Re sult Performing Organization Address [facility]/ZIP Co de Phone Number [facility] [address] [place] [address], [place] [phone] * Ferritin (10/22/2024 9:14 AM EDT) Ferritin 16 8 - 252 ng/mL LAB CHEMISTRY METHOD 10/22/2024 5:[address] [facility] Blood Venous blood specimen / Unknown Venipuncture / Unknown 10/22/2024 9:14 AM EDT 10/22/2024 9:14 AM EDT Latrice SHIELDS LAB BLOOD ORDERABLES Final Re sult [facility] [address] [place] [address], [place] [phone] * (ABNORMAL) Basic metabolic panel (10/22/2024 9:14 AM EDT) Sodium 138 133 - 145 mmol/L LAB CHEMISTRY METHOD 10/22/2024 5:53 PM [facility] Potassium 3.7 3.5 - 5.5 mmol/L LAB CHEMISTRY METHOD 10/22/2024 5:53 PM [facility] Chloride 103 96 - 110 mmol/L LAB CHEMISTRY METHOD 10/22/2024 5:53 PM [facility] CO2 29 21 - 32 mmol/L LAB CHEMISTRY METHOD 10/22/2024 5:53 PM [facility] Anion Gap 6 3 - 11 LAB CHEMISTRY METHOD 10/22/2024 5:53 PM [facility] Glucose 152(H) 70 - 100 mg/dL LAB CHEMISTRY METHOD 10/22/2024 5:53 PM [facility] BUN 14 5 - 25 mg/dL LAB CHEMISTRY METHOD 10/22/2024 5:53 PM [facility] Creatinine 1.07 0.50 - 1.10 mg/dL LAB CHEMISTRY METHOD 10/22/2024 5:53 PM [facility] eGFR 57(L) >=60 mL/min/1. 73m2 LAB CHEMISTRY METHOD 10/22/2024 5:53 PM [facility] Comment:Calculation based on the Chronic Kidney Disease Epidemiology Collaboration (CKD-EPI) equation refit without adjustment for race. BUN/Creatinine Ratio 13.1 LAB CHEMISTRY METHOD 10/22/2024 5:53 PM [facility] Calcium 8.7 8.5 - 10.5 mg/dL LAB CHEMISTRY METHOD 10/22/2024 5:53 PM [facility] Blood Venous blood specimen / Unknown Venipuncture / Unknown 10/22/2024 9:14 AM EDT 10/22/2024 9:14 AM EDT us Latrice SHIELDS LAB BLOOD ORDERABLES Final Re sult [facility] [address] [place] [address], [place] [phone] * Lipid panel with reflex to direct LDL (07/30/2024 9:36 AM EDT) Cholesterol 173 0 - 200 mg/dL LAB CHEMISTRY METHOD 07/30/2024 6:[address] [facility] Triglycerides 70 0 - 150 mg/dL LAB CHEMISTRY METHOD 07/30/2024 6:[address] [facility] HDL 79 >=40 mg/dL LAB CHEMISTRY METHOD 07/30/2024 6:[address] [facility] LDL Calculated 80 0 - 100 mg/dL LAB CHEMISTRY METHOD 07/30/2024 6:[address] [facility] VLDL Cholesterol Harjinder 14 mg/dL LAB CHEMISTRY METHOD 07/30/2024 6:[address] [facility] Non HDL Chol. (LDL+VLDL) 94 <145 mg/dL LAB CHEMISTRY METHOD 07/30/2024 6:[address] [facility] Chol/HDL Ratio 2.2 0.0 - 4.4 LAB CHEMISTRY METHOD 07/30/2024 6:[address] [facility] Blood Venous blood specimen / Unknown Venipuncture / Unknown 07/30/2024 9:36 AM EDT 07/30/2024 9:36 AM EDT Cristopher SHIELDS LAB BLOOD ORDERABLES Fi nal Result [facility] [address] [place] [address], [place] [phone] * (ABNORMAL) Hemoglobin A1c (07/30/2024 9:36 AM EDT) Hemoglobin A1C 6.9(H) <6.5 % LAB CHEMISTRY METHOD 07/31/2024 12:[address] [facility] Mean Bld Glu Estim. 151 mg/dL LAB CHEMISTRY METHOD 07/31/2024 12:[address] [facility] Blood Venous blood specimen / Unknown Venipuncture / Unknown 07/30/2024 9:36 AM EDT 07/30/2024 9:36 AM EDT us Cristopher SHIELDS LAB BLOOD ORDERABLES Fi nal Result [facility] [address] [place] [address], * SCREENING MAMMOGRAPHY BI 2-VIEW BREAST INC CAD (02/13/2024 10:37 AM EDT) Anatomical Region Laterality Modality Radiographic Diana ging 01/10/2023 9:1 5 AM EDT Narrative 02/13/2024 4:37 PM EDT [...] architectural distortion or suspicious calcifications are identified. Again noted multiple bilateral circumscribed nodular opacities, most [...] Breast cancer risk category Low (<15%) Location: [facility], [address] [place] [address], [place], [address], [phone] Procedure Note Latrice Garcia MD - 10/16/2024 This is a summary report. The complete [...] Breast cancer risk category Low (<15%) Location: [facility], [address] [place] [address], [id number], [phone] Jason Vides MD IMG XR PROCEDURES Final Result * Urine Albumin Creatinine Ratio (09/15/2023) Urine Albumin Creatinine Ratio Abstracted Result [facility] Provider HEALTH MAINTENANCE Final Result * Hepatitis C Screening (09/15/2023) Pathologist [facility] Hepatitis C Screening Abstracted [facility] Provider HEALTH MAINTENANCE Final Result * Cervical Cancer Screening: HPV (06/10/2016) Pathologist [facility] Cervical Cancer Screening: HPV Negative, Abstracted Result [facility] Provider HEALTH MAINTENANCE Final Result from Last 3 Months or Most Recently Relevant to Health Maintenance Insurance [facility] MEDICARE Care Teams Steelscope Operator Relationship Specialty Start Date End Date Jason Vides MD [address] [place] [phone] PCP - General Internal Medicine 11/23/19
== END 2024-11-23 12:39 | disposition home or self-care (01) ==
LOC: HO.HWS 12:14
PROVIDERS: PCP Internal Medicine; Visit Provider Obstetrics & Gynecology
DX: N95.0 Postmenopausal bleeding (principal)
CPT/HCPCS: 99213

== ENCOUNTER 2025-03-31 10:59 | Outpatient (REF) | payer BC, SELFPAY ==
--- NOTE | ~2025-03-31 | US_ITS ---
EXAMINATION: US PELVIS CLINICAL INFORMATION: September 21, 2024 COMPARISON: None available. TECHNIQUE: Ultrasound of the pelvis is performed using both transabdominal and transvaginal transducers along with Doppler. Transvaginal imaging is performed due to inadequate visualization transabdominally. FINDINGS: Uterus: The uterus is retroflexed and measures 8.3 x 4.1 x 6.3 cm. The double wall endometrial thickness is 2 mm. The uterus is heterogeneous. Again seen is a 7 mm coarse calcific density with posterior acoustic shadowing in the fundal region of the uterus near the apex of the endometrial canal. Three of the previously 4 demonstrated uterine leiomyomas are documented today. Left upper uterine body near the isthmus: 4.3 x 3.6 x 3.7 cm, previously 3.3 x 3.8 x 3.0 cm. Mid left uterine body: 1.8 x 2.3 x 1.9 cm, previously 2.3 x 2.5 x 2.7 cm Upper right uterine body: 1.9 x 1.7 x 1.9 cm, previously 2.0 x 2.1 x 2.3 cm Right fundal leiomyoma measures on the prior study is not visualized today. Adnexa: Right ovary: Not demonstrated Left ovary measures 1.8 x 1.4 x 1.3 cm. Well demonstrated. US/US pelvic and transvaginal IMPRESSION: Uterine leiomyomas, as detailed above. Dense calcification in the upper uterus could be sales representative rural power of a degenerated fibroid. Electronically signed by: Arvind Tai MD 03/31/2025 11:50 AM [facility]
== END 2025-03-31 11:00 | disposition home or self-care (01) ==
LOC: HO.US 10:59
PROVIDERS: PCP Internal Medicine; Visit Provider Obstetrics & Gynecology
DX: D25.9 Leiomyoma of uterus, unspecified (principal)
CPT/HCPCS: 76830; 76856

== ENCOUNTER → 2025-03-31 11:00 | Outpatient (BNV) | payer BC, SELFPAY | PROVIDERS: PCP Internal Medicine; Visit Provider Radiology Diagnostic Radiology | DX: D25.9 Leiomyoma of uterus, unspecified (principal) | CPT/HCPCS: 76830; 76856 ==

== ENCOUNTER 2025-04-18 07:49 | Outpatient (AMB) | payer BC, SELFPAY ==
--- NOTE | 2025-04-18 07:50 | A.OFFVIS_ITS ---
Intake Visit Reasons: US follow up Teleservices Representative Required: No Information Interpreted: non-clinical & clinical Allergies morphine Allergy (Intermediate, Verified 04/18/25 07:50) Dizziness HPI Comments Details: The patient is schedule telehealth visit for ultrasound follow-up done on 04/01/2025. No complaints no pelvic pressure, pain or vaginal bleeding. Ultrasound showed the following: Uterus: The uterus is retroflexed and measures 8.3 x 4.1 x 6.3 cm. The double wall endometrial thickness is 2 mm. The uterus is heterogeneous. Again seen is a 7 mm coarse calcific density with posterior acoustic shadowing in the fundal region of the uterus near the apex of the endometrial canal. Three of the previously 4 demonstrated uterine leiomyomas are documented today. Left upper uterine body near the isthmus: 4.3 x 3.6 x 3.7 cm, previously 3.3 x 3.8 x 3.0 cm. Mid left uterine body: 1.8 x 2.3 x 1.9 cm, previously 2.3 x 2.5 x 2.7 cm Upper right uterine body: 1.9 x 1.7 x 1.9 cm, previously 2.0 x 2.1 x 2.3 cm Right fundal leiomyoma measures on the prior study is not visualized today. Adnexa: Right ovary: Not demonstrated Left ovary measures 1.8 x 1.4 x 1.3 cm. Well demonstrated. US/US pelvic and transvaginal IMPRESSION: Uterine leiomyomas, as detailed above. Dense calcification in the upper uterus could be veterans employment representative of a degenerated fibroid. 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 Sexual orientation: Straight/Heterosexual Gender identity: Female Review of Systems Const All systems reviewed & are unremarkable except as noted in HPI and below Reports as per HPI and Reports no additional complaints GI Reports no additional complaints Reports no additional complaints Telehealth Telehealth Telehealth Platform: [employer] Location of provider rendering services: practice address Location of patient: address on file Patient Identification confirmed using: Name, : Yes Telehealth method: video Patient verbally consented to treatment: Yes Patient verbally consented to billing insurance company: Yes Patient informed of any privacy concerns related to visit: Yes Minutes spent on Phone/Video with Pt.: 4 Assessment & Plan Assessment & Plan (1) Uterine myoma: Code(s): D25.9 - Leiomyoma of uterus, unspecified Category: Medical Plan: Discussed with the patient the findings on pelvic ultrasound & the risk of myosarcoma; in addition reviewed with the patient that malignancy and pre malignancy cannot be ruled out without hysterectomy for pathological evaluation ; furthermore, explained to the patient the limitation of pelvic ultrasound and endometrial biopsy in the setting. Discussed with the patient the options of treatment including expectant management versus hysterectomy; the pros and cons, risks benefits of each approach were discussed with the patient including the fact that in cases of my osarcoma, surgical treatment can lead to early diagnosis and positively affects the prognosis; after further discussion, the patient decided to proceed with expectant management. Will repeat pelvic ultrasound periodically. Instructions given to patient to call in case any of the following occurs: pressure symptoms, abnormal uterine bleeding, pelvic pain; and to schedule a 12 months pelvic ultrasound (order placed) and a follow-up appointment . All questions answered, the patient verbalized understanding and agreed with the plan . I spent a total of 20 minutes reviewing the chart, talking to the patient via video and documenting in the medical record. Orders: Orders US pelvic and transvaginal 1 Year D25.9 - Leiomyoma of uterus, unspecified Coding Level of Care Code Tele Est Pt Level 3 (55314) Diagnoses Uterine myoma D25.9
--- OUTSIDE RECORDS SUMMARY | 2025-04-18 07:53 | XMS_ITS | Encounter Summary ---
Author Organization [facility] [place] [address] Care Team Providers Care Back Roll Lathe Operator Name Role Phone Jason Vides MD Primary Care Provider [phone] Encounter Details Date Type Department Care Team ([facility] Contact Info) Description 03/12/2025 Results Follow-Up Gastroenterology - [place] [address] [facility] [address] [facility] [address] [place] [address] Adrienne Giron MD 299 [facility] [address] [place] [address] Social History Tobacco Use Types Packs/Day Years Used Date Smoking Tobacco: Never Smokeless Tobacco: Never Alcohol Use Standard Drinks/Week Comments Not Currently 0 (1 standard drink = 0.6 oz pur e alcohol) Housing Instability Answer Date Recorde d Are you worried that in the next 2 months you may not have stable housing? No 12/28/2024 Food Access & Nutrition Answer Date Rec orded Do you have access to a vari ety of food including fruits and vegetables? Yes 12/28/2024 Access to Healthcare Answer Date Record ed Within the last 3 months, ho w many times did you visit the emergency department for your medical care? 0 12/28/2024 Health Literacy Answer Date Recorded How often do you need to hav e someone help you when you read instructions, pamphlets, or other written material from your doctor or pharmacy? Never 12/28/2024 Caregiver: How often do you need to have someone help you when you read instructions, pamphlets, or other written material from your doctor or pharmacy? Not on file 12/28/2024 Financial Risk Answer Date Recorded How hard is it for you to pa y for the very basics like food, housing, medical care, and air conditioning / heating? Patient declined 12/28/2024 Transportation Answer Date Recorded Has the lack of transportati on kept you from meetings, work, or from getting things needed for daily living? No Has the lack of transportati on kept you from medical appointments or from getting medications? No 12/28/2024 Social Isolation Answer Date Recorded How often do you feel lonely or isolated from th ose around you? Never 12/28/2024 Food Risk Answer Date Recorded Within the past 12 months we worried whether our food would run out before we got money to buy more. Never true 12/28/2024 Within the past 12 months th e food we bought just didn't last and we didn't have money to get more. Never true 12/28/2024 Dependent Care Answer Date Recorded Do you need help finding or paying for care for your loved ones. For example, director of early childhood or elderly care for an older adult? No 12/28/2024 Education Answer Date Recorded Do you think completing more education or training, like finishing a GED, going to college, or learning a trade, would be helpful for you? No 12/28/2024 Employment and Income Answer Date Recor ded During the last four weeks, have you been actively looking for work? No 12/28/2024 Living Situation Answer Date Recorded What is your living situation? Unrecognized valu e 12/28/2024 Interpersonal Safety Answer Date Record ed Physical Abuse Unrecognized value 11/15/2024 Verbal Abuse Unrecognized value 11/15/2024 Comments No Sex and Gender Information Value Date Recorded Sex Assigned at Not on file Legal Sex Female 7:06 PM EST Gender Identity Not on file Sexual Orientation Not on file documented as of this encounter Progress Notes * Adrienne Giron MD - 03/12/2025 7:02 PM EDT The breath test for the bacteria in your stomach is normal documented in this encounter Plan of Treatment Upcoming Encounters Date Type Department Care Team (Late st Contact Info) Description 06/30/2025 8:00 AM EST Office Visit Adult Medicine [facility] [address] [place], [place] [phone] Cristopher Price PA [address] [place], [place] 07/31/2025 8:30 AM EDT Office Visit [facility] Hematology Oncology [address] [place] [address] Latrice Pineda PA [address] [place] [address] documented as of this encounter Visit Diagnoses Not on filedocumented in this encounter Additional Health Concerns Assessment Noted Time PHQ-9 Depression Total Score: 0 12/29/19 25 8:32 AM EDT documented as of this encounter Care Teams Back Roll Lathe Operator Relationship Specialty Start Date End Date Jason Vides MD [address] [place] [address] PCP - General Internal Medicine 11/23/19 documented as of this encounter
--- OUTSIDE RECORDS SUMMARY | 2025-04-18 07:54 | XMS_ITS | Clinical Summary ---
Author Organization [facility] [address] [place] [address] [place] [phone] Phone Care Team Providers Care Emulsion Coater Name Role Phone Jasno Vides MD Primary Care Provider [phone] Allergies Active Allergy Reactions Criticality Noted Date [...] daily as needed for Cough or Wheezing. 08/31/19 21 Active blood-glucose meter kit Test daily 07/18/19 21 Active FREESTYLE LANCETS MISC Test daily 07/18/19 21 Active bismuth subsalicylate 525 mg/15 mL suspension Take 15 mL by mouth 4 (four) times a day. 840 mL 12/19/19 25 Active omeprazole (PriLOSEC) [address] capsule TAKE 1 CAPSULE BY MOUTH DAILY 90 capsule 12/29/19 25 Active Additional Information Patient not taking.Reported on 01/31/2025 lisinopriL (PRINIVIL,ZESTRIL ) 5 mg tablet Take 1 tablet (5 mg total) by mouth 1 (one) time each day. 90 tablet 1 12/29/19 25 Active ferrous sulfate 325 mg (65 mg iron) EC tablet Take 1 tablet (325 mg total) by mouth 1 (one) time each day. Do not crush, chew, or split. 90 each 1 02/21/20 25 Active hydroCHLOROthiazi de 12.5 mg tablet Take 1 tablet (12.5 mg total) by mouth 1 (one) time each day. 90 tablet 1 03/29/20 25 Active atorvastatin (LIPITOR) 20 mg tablet Take 1 tablet (20 mg total) by mouth at bedtime. 90 tablet 1 03/29/20 25 Active atenoloL (TENORMIN) 25 mg tablet Take 1 tablet (25 mg total) by mouth 1 (one) time each day. 90 tablet 1 03/29/20 25 Active hydroCHLOROthiazi de 12.5 mg tablet TAKE 1 TABLET BY MOUTH DAILY 90 tablet 12/29/19 25 025 Discontin ued(Reord er) atorvastatin (LIPITOR) 20 mg tablet TAKE 1 TABLET(20 MG) BY MOUTH AT BEDTIME 90 tablet 12/29/19 25 025 Discontin ued(Reord er) atenoloL (TENORMIN) 25 mg tablet TAKE 1 TABLET BY MOUTH DAILY 90 tablet 12/29/19 25 025 Discontin ued(Reord er) Active Problems Problem Noted Date Diagnosed Date Morbid obesity with BMI of 4 0.0-44.9, adult ([facility] V24, [facility] V28) 04/21/2024 Gastroesophageal reflux disease without esophagi tis 03/02/2023 CKD (chronic kidney disease) stage 3, GFR 30-59 ml/min ([facility] V24, [facility] V28) 03/06/2022 Type II diabetes mellitus wi th renal manifestations ([facility] V24, [facility] V28) 01/09/2020 Asthma in adult [...] Encounters Date Type Department Care Team Description 03/29/2025 10:05 AM EST Lab Draw Station - [address] [facility] [address] [facility] [address] [place] [address] Helicobacter pylori infection; Type 2 diabetes mellitus with stage 3 chronic kidney disease, without long-term current use of insulin, unspecified whether stage 3a or 3b CKD ([facility] V24, [facility] V28); Anemia, unspecified type; Helicobacter pylori gastritis 03/12/2025 Results Follow-Up Gastroenterology - [place] [address] [facility] [address] [place] [phone] Adrienne Giron MD 02/25/2025 8:13 AM EDT - 02/25/2025 11:59 PM EDT Hospital Encounter Radiology Department - [address] [phone] Encounter for screening mammogram for breast cancer Discharge Disposition: Home or Self Care 01/31/2025 8:30 AM EDT Office Visit [facility] Hematology Oncology [address] [place] [phone] Latrice Pineda PA Iron deficiency anemia due to chronic blood loss (Primary Dx); Tubular adenoma of colon; History of postmenopausal bleeding; Stage 3a chronic kidney disease (CMS/HCC V24, [facility] V28) from Last 3 Months Immunizations Immunization Administration Dates Next Due Influenza Quadravalent, MDCK [...] HISTORICAL BACK SURGERY KIDNEY STONE SURGERY PROCEDURE: SD NEPHROLITHOTOMY REMOVAL CALCULUS SECTION PROCEDURE: HISTORICAL DELIVERY; [...] Relation Name Comments CABG Father Hypertension Father Breast cancer Mother dx'd 63 Macular degeneration Mother dx'd 63 Colon cancer Neg Hx Ovarian cancer Neg Hx Uterine cancer Neg Hx Relation Name Status Comments Father (Age 71) cad, htn, hyperlipidemia Mother dx'd 63 (Age 63) breast can cer Social History [...] care for your loved ones. For example, children's book author or elderly care for an older adult? [...] Sexual Orientation Not on file Obstetrics History Para Term AB IAB SAB Ectopic Multiple Livin g Live Births 3 3 3 3 Date Outcome GA Total Labor Labor/2nd/3rd Weight Sex Type Anes PTL Avelina A1 A5 Name Clin Term Term Term Last Filed Vital Signs Vital Sign Reading Time Taken Comments Blood Pressure 152/67 01/31/2025 8:35 AM EDT Pulse 66 01/31/2025 8:35 AM EDT Temperature 36.3 C (97.3 F) 01/31/2025 8:35 AM EDT Respiratory Rate 18 11/15/2024 9:32 AM EDT Oxygen Saturation 98% 01/31/2025 8:35 AM EDT Inhaled Oxygen Concentration - - Weight 98 kg (216 lb) 01/31/2025 8:35 AM EDT Height 157.5 cm (5' 2.01 ) 01/31/2025 8:35 AM ED T Body Mass Index 39.49 01/31/2025 8:35 AM EDT Plan of Treatment Upcoming Encounters Date Type Department Care Team (Late st Contact Info) Description 06/30/2025 8:00 AM EST Office Visit Adult Medicine [address] [phone] Cristopher Price PA [address] [place], [place] 07/31/2025 8:30 AM EDT Office Visit [facility] Hematology Oncology [address] [place] [phone] Latrice Pineda PA [address] [place] [address] Health Maintenance Due Date Last Done Comments Diabetes: Annual Foot Exam 1967 Diabetes: Annual Retina Eye Exam 1967 Zoster Vaccines (1 of 2) 1976 RSV Immunization Adult Patients (1 - Risk 50-74 years 1-dose series) 2007 Pneumococcal Vaccine: 50+ Years (2 of 2 - PCV) 06/04/2019 06/04/2018 Cervical Cancer Screening: HPV 06/10/2021 06/10/2016 Osteoporosis Screening (Bone Density Screening) 04/26/2022 COVID-19 Vaccine ( - season) 2025 05/04/2021, 09/06/2020, 08/16/2020 Influenza Vaccine (#1) 2025 , 03/06/2022, 06/26/2021, Additional history exists Diabetes: Blood Sugar Control Test (HGBA1C) 09/26/2025 03/29/2025, 07/30/2024, 09/15/2023, Additional history exists Diabetes: Annual GFR (Glomerular Filtration Rate) 10/22/2025 10/22/2024, 07/25/2024, 04/26/2024, Additional history exists Hypertension/CHF/CAD Annual BMP Blood Test 10/22/2025 10/22/2024, 07/25/2024, 04/26/2024, Additional history exists Falls Risk Assessment 11/15/2025 11/15/2024 Social Influencers of Health Screening 12/28/2025 12/28/2024 Diabetes: Annual Urine Albumin-Creatinine Ratio (uACR) 03/29/2026 03/29/2025, 09/15/2023 Breast Cancer Screening 02/25/2027 02/26/20 25, 02/13/2024, 02/13/2024, Additional history exists Colorectal Cancer Screening: Colonoscopy 11/16/2027 11/15/2024, 10/18/2021 Cholesterol Screening (Lipid Panel) 07/30/2029 07/30/2024, 09/15/2023, 09/15/2023 DTaP,Tdap,and Td Vaccines (3 - Td or Tdap) 01/02/2030 01/03/2020, 08/29/2009 Hepatitis C Screening Completed 09/15/2023 Depression Screening Completed 12/28/2024 HIB Vaccines Aged Out No longer eligi [...] Procedure Name Priority Date/Time Associated Diagnosis Comments MICROALBUMIN CREATININE URINE RATIO Routine 03/29/2025 10:01 AM EST Helicobacter pylori infection Type 2 diabetes mellitus with stage 3 chronic kidney disease, without long-term current use of insulin, unspecified whether stage 3a or 3b CKD (CMS/HCC V24, CMS/HCC V28) Anemia, unspecified type Helicobacter pylori gastritis HEMOGLOBIN A1C Routine 03/29/2025 10:01 AM EST Helicobacter pylori infection Type 2 diabetes mellitus with stage 3 chronic kidney disease, without long-term current use of insulin, unspecified whether stage 3a or 3b CKD (CMS/HCC V24, CMS/HCC V28) Anemia, unspecified type Helicobacter pylori gastritis MG MAMMO DIGITAL SCREENING W ANÍBAL BILAT Routine 02/25/2025 8:27 AM EDT Encounter for screening mammogram for breast cancer HELICOBACTER PYLORI BREATH TEST Routine 01/31/2025 9:30 AM EDT Helicobacter pylori infection Type 2 diabetes mellitus with stage 3 chronic kidney disease, without long-term current use of insulin, unspecified whether stage 3a or 3b CKD (CMS/HCC V24, CMS/HCC V28) Anemia, unspecified type Helicobacter pylori gastritis CBC WITH AUTO DIFFERENTIAL Routine 01/26/2025 8:06 AM EDT Anemia, unspecified type Helicobacter pylori gastritis VITAMIN B12 AND FOLATE Routine 01/26/2025 8:06 AM EDT Anemia, unspecified type Helicobacter pylori gastritis IRON AND TIBC Routine 01/26/2025 8:06 AM EDT Anemia, unspecified type Helicobacter pylori gastritis FERRITIN Routine 01/26/2025 8:06 AM EDT Anemia, unspecified type Helicobacter pylori gastritis CBC AND DIFFERENTIAL Routine 01/26/2025 8:06 AM EDT Anemia, unspecified type Helicobacter pylori gastritis COLONOSCOPY Routine 11/15/2024 9:11 AM EDT Colon polyps Anemia, unspecified type BASIC METABOLIC PANEL Routine 10/22/2024 9:14 AM EDT Anemia, unspecified type Adenomatous polyp of colon, unspecified part of colon History of postmenopausal bleeding LIPID PANEL WITH REFLEX TO DIRECT LDL Routine 07/30/2024 9:36 AM EDT Type 2 diabetes mellitus with chronic kidney disease, without long-term current use of insulin, unspecified CKD stage (CMS/HCC V24, CMS/HCC V28) Hyperlipidemia, unspecified hyperlipidemia type HEPATITIS C SCREENING Routine 09/15/2023 HPV Routine 06/10/2016 from Last 3 Months or Most Recently Relevant to Health Maintenance Results * Microalbumin creatinine urine ratio (03/29/2025 10:01 AM EST) Creatinine, Urine 215.0 mg/dL LAB CHEMISTRY METHOD 03/29/2025 4:39 PM EST [facility] Microalb, Ur 22.8 0.0 - 29.0 mg/L LAB CHEMISTRY METHOD 03/29/2025 4:39 PM EST [facility] Microalb/Creat Ratio 11 <30 mg/g creat LAB CHEMISTRY METHOD 03/29/2025 4:39 PM EST [facility] Urine Urine specimen obtained by clean catch procedure / Unknown Non-blood Collection / Unknown 03/29/2025 10:01 AM EST 03/29/2025 10:01 AM EST Cristopher Price HI LAB URINE ORDERABLES Fi nal Result Performing Organization Address [facility]/ZIP Co de Phone Number [facility] [address] [place] [address], [place] [phone] * (ABNORMAL) Hemoglobin A1c (03/29/2025 10:01 AM EST) Hemoglobin A1C 6.6(H) <6.5 % LAB CHEMISTRY METHOD 03/29/2025 9:52 PM EST [facility] Mean Bld Glu Estim. 143 mg/dL LAB CHEMISTRY METHOD 03/29/2025 9:52 PM EST [facility] Blood Venous blood specimen / Unknown Venipuncture / Unknown 03/29/2025 10:01 AM EST 03/29/2025 10:01 AM EST [facility] BLOOD ORDERABLES Fi nal Result Performing Organization Address [facility] Co de Phone Number [facility] [address] [place] [address], [place] [phone] * MG Mammo Digital Screening w Aníbal bilat (02/25/2025 8:27 AM EDT) Anatomical Region Laterality Modality Breast Bilateral Mammography 02/28/2025 8:20 AM EDT Impressions 02/28/2025 9:01 AM EDT No mammographic evidence of malignancy. BREAST DENSITY: C - The breasts are heterogeneously dense which may obscure small masses. BI-RADS CATEGORY: 2 - BENIGN RECOMMENDATION: Screening bilateral mammogram is recommended in 1 year. MAMMO LOCATION: [facility], [address] [place] [address], [id number], . -------- FINAL REPORT -------- Dictated By: Coco Briscoe Dictated Date: 02/28/2025 08:20 ET Assigned Physician: Coco Briscoe Reviewed and Electronically Signed By: Coco Briscoe Signed Date: 02/28/2025 09:01 ET Workstation ID: [id number] Transcribed By: Self Edit Transcribed Date: 02/28/2025 08:26 ET Narrative 02/28/2025 9:01 AM EDT EXAM: Screening Mammogram CLINICAL: 69 years old, Female, routine annual exam. History of a benign right ultrasound-guided core biopsy on 01/24/2022. COMPARISON: 01/24/2024 and as far back as 12/22/2020 TECHNIQUE: Bilateral MLO and CC views were obtained digitally with 3-D mammogram (digital breast tomosynthesis). Computer-aided detection was utilized in evaluation of this exam (CAD). FINDINGS: Multiple bilateral waxing and waning circumscribed lesions which is a pattern seen with cysts and breast cysts have been demonstrated on previous ultrasound exams. No one area has more suspicious features than another. No architectural distortion or suspicious calcifications. Procedure Note Coco Briscoe MD - 02/28/2025 EXAM: Screening Mammogram CLINICAL: 69 years old, Female, routine annual exam. History of a benignright ultrasound-guided core biopsy on 01/24/2022. COMPARISON: 01/24/2024 and as far back as 12/22/2020 TECHNIQUE: Bilateral MLO and CC views were obtained digitally with 3-Dmammogram (digital breast tomosynthesis). Computer-aided detection wasutilized in evaluation of this exam (CAD). FINDINGS: Multiple bilateral waxing and waning circumscribed lesions which is apattern seen with cysts and breast cysts have been demonstrated onprevious ultrasound exams. No one area has more suspicious features thananother. No architectural distortion or suspicious calcifications. IMPRESSION: No mammographic evidence of malignancy. BREAST DENSITY: C - The breasts are heterogeneously dense which mayobscure small masses. BI-RADS CATEGORY: 2 - BENIGN RECOMMENDATION: Screening bilateral mammogram is recommended in 1 year. MAMMO LOCATION: [facility], [address] [place], [place], [address], . -------- FINAL REPORT -------- Dictated By: Coco Briscoe Dictated Date: 02/28/2025 08:20 ET Assigned Physician: Coco Briscoe Reviewed and Electronically Signed By: Coco Briscoe Signed Date: 02/28/2025 09:01 ET Workstation ID: [id number] Transcribed By: Self Edit Transcribed Date: 02/28/2025 08:26 ET us Vignesh La MD IMG BI PROCEDURES Final Result * Helicobacter pylori breath test (01/31/2025 9:30 AM EDT) H Pylori Breath Test Negative Negative LAB CHEMISTRY METHOD 01/31/2025 12:37 PM EDT [facility] Breath Oral cavity structure / Unknown Non-blood Collection / Unknown 01/31/2025 9:30 AM EDT 01/31/2025 12:09 PM EDT Adrienne Giron MD LAB BODY FLUIDS AND STOOLS ORDERABLES Final Result [facility] [address] [place] [address], [place] [phone] * Vitamin B12 and folate (01/26/2025 8:06 AM EDT) Vitamin B-12 522 250 - 900 pcg/mL LAB CHEMISTRY METHOD 01/26/2025 10:07 AM EDT [facility] Folate 8.0 2.8 - 17.0 ng/ml LAB CHEMISTRY METHOD 01/26/2025 10:07 AM EDT [facility] Blood Venous blood specimen / Unknown Venipuncture / Unknown 01/26/2025 8:06 AM EDT 01/26/2025 8:56 AM EDT us Latrice SHIELDS LAB BLOOD ORDERABLES Final Re sult [facility] [address] [place] [address], * (ABNORMAL) CBC auto differential (01/26/2025 8:06 AM EDT) WBC 12.4(H) 4.8 - 10.8 K/mcL LAB HEMETOLOGY METHOD 01/26/2025 9:08 AM EDT [facility] RBC 4.50 3.80 - 4.80 M/mcL LAB HEMETOLOGY METHOD 01/26/2025 9:08 AM EDT [facility] Hemoglobin 12.1 11.5 - 16.0 g/dL LAB HEMETOLOGY METHOD 01/26/2025 9:08 AM [facility] Hematocrit 38.5 35.0 - 47.0 % LAB HEMETOLOGY METHOD 01/26/2025 9:08 AM [facility] MCV 85.6 79.0 - 98.0 FL LAB [facility]OLOGY [facility]25 [facility] MCH 26.9(L) 27.0 - 32.0 pcg LAB HEMETOLOGY METHOD 01/26/2025 9:08 AM [facility] MCHC 31.4(L) 32.0 - 37.0 g/dL LAB HEMETOLOGY METHOD 01/26/2025 9:[facility] RDW 16.1(H) 11.0 - 15.0 % LAB HEMETOLOGY METHOD 01/26/2025 9:[facility] Platelets 314 130 - 400 K/mcL LAB HEMETOLOGY METHOD 01/26/2025 9:08 AM EDT [facility] MPV 10.7 7.0 - 11.0 FL LAB HEMETOLOGY METHOD 01/26/2025 9:08 AM [facility] NRBC 0.0 <1.0 % LAB HEMETOLOGY METHOD 01/26/2025 9:08 AM [facility] NRBC Absolute 0.00 <0.10 K/mcL LAB HEMETOLOGY METHOD 01/26/2025 9:08 AM [facility] Neutrophils Relative 68.4 % LAB HEMETOLOGY METHOD 01/26/2025 9:08 AM [facility] Lymphocytes Relative 21.5 % LAB HEMETOLOGY METHOD 01/26/2025 9:08 AM [facility] Monocytes Relative 7.8 % LAB HEMETOLOGY METHOD 01/26/2025 9:08 AM [facility] Eosinophils Relative 1.1 % LAB HEMETOLOGY METHOD 01/26/2025 9:08 AM [facility] Basophils Relative 0.6 % LAB HEMETOLOGY METHOD 01/26/2025 9:08 AM [facility] Immature Granulocytes Relative 0.6 % LAB HEMETOLOGY METHOD 01/26/2025 9:08 AM [facility] Neutrophils Absolute 8.46(H) 1.50 - 7.00 K/mcL LAB HEMETOLOGY METHOD 01/26/2025 9:08 AM [facility] Lymphocytes Absolute 2.66 1.00 - 5.00 K/mcL LAB HEMETOLOGY METHOD 01/26/2025 9:08 AM [facility] Monocytes Absolute 0.96 0.20 - 1.00 K/mcL LAB HEMETOLOGY METHOD 01/26/2025 9:08 AM [facility] Eosinophils Absolute 0.14 0.00 - 0.50 K/mcL LAB HEMETOLOGY METHOD 01/26/2025 9:08 AM [facility] Basophils Absolute 0.07 0.00 - 0.20 K/mcL LAB HEMETOLOGY METHOD 01/26/2025 9:08 AM EDT [facility] Immature Granulocytes Absolute 0.07(H) 0.00 - 0.03 K/mcL LAB HEMETOLOGY METHOD 01/26/2025 9:08 AM EDT [facility] Blood Venous blood specimen / Unknown Venipuncture / Unknown 01/26/2025 8:06 AM EDT 01/26/2025 8:57 AM EDT us Latrice SHIELDS LAB BLOOD ORDERABLES Final Re sult Performing Organization Address City/[facility]/ZIP Co de Phone Number [facility] [address] [place] [address], [place] [phone] * Iron and TIBC (01/26/2025 8:06 AM EDT) Iron 65 40 - 150 mcg/dL LAB CHEMISTRY METHOD 01/26/2025 9:43 AM EDT [facility] TIBC 377 250 - 450 mcg/dL LAB CHEMISTRY METHOD 01/26/2025 9:43 AM EDT [facility] Iron Saturation 17 15 - 50 % LAB CHEMISTRY METHOD 01/26/2025 9:43 AM EDT [facility] Blood Venous blood specimen / Unknown Venipuncture / Unknown 01/26/2025 8:06 AM EDT 01/26/2025 8:56 AM EDT us Latrice SHIELDS LAB BLOOD ORDERABLES Final Re sult [facility] [address] [place] [address], [place] [phone] * Ferritin (01/26/2025 8:06 AM EDT) Ferritin 29 8 - 252 ng/mL LAB CHEMISTRY METHOD 01/26/2025 10:07 AM EDT [facility] Blood Venous blood specimen / Unknown Venipuncture / Unknown 01/26/2025 8:06 AM EDT 01/26/2025 8:56 AM EDT us Latrice SHIELDS LAB BLOOD ORDERABLES Final Re sult [facility] [address] [place] [address], [place] [phone] * COLONOSCOPY Anesthesia - MAC; [facility] ENDOSCOPY (11/15/2024 9:11 AM EDT) Anatomical [...] for surveillance. Narrative 11/15/2024 9:15 AM EDT [facility] GI Patient Name: Adelaida Jones Procedure [...] verified by the physician, the nurse, the supervisor mold shop and the entry level automotive technician in the pre-procedure area in the [...] retroflexion views. Procedure Code(s): --- Professional --- 04170, Colonoscopy, flexible; with removal of tumor(s), polyp(s), or other lesion(s) by snare technique Diagnosis Code(s): --- Professional --- D12.3, Benign neoplasm of transverse colon (hepatic flexure or splenic flexure) CPT copyright 2020 [employer]. All rights reserved. The codes documented in this report are preliminary and upon grove worker review may be revised to meet current compliance requirements. Adrienne Giron MD 11/15/2024 9:15:44 AM This report has been signed electronically.Adrienne Giron MD Number of Addenda: 0 Note Initiated On: 11/15/2024 8:44 AM Scope Withdrawal Time: 0 hours 6 minutes 1 second Scope In: 8:49:10 AM Scope Out: 8:58:23 AM Endoscopy Department at [facility] - [address] [place] [phone] Procedure Note Adrienne Giron MD - 11/15/2024 [facility] GI Patient Name: Adelaida Jones Procedure [...] the physician, the nurse, theanesthetist and the entry level automotive technician in the pre-procedure area in the [...] retroflexion views. Procedure Code(s): --- Professional --- 55948, Colonoscopy, flexible; with removal of tumor(s), polyp(s), or other lesion(s) by snare technique Diagnosis Code(s): --- Professional --- D12.3, Benign neoplasm of transverse colon (hepatic flexure or splenic flexure) CPT copyright 2020 [employer]. All rights reserved. The codes documented in this report are preliminary and upon grove worker reviewmay be revised to meet current compliance requirements. Adrienne Giron MD 11/15/2024 9:15:44 AM This report has been signed electronically.Adrienne Giron MD Number of Addenda: 0 Note Initiated On: 11/15/2024 8:44 AM Scope Withdrawal Time: 0 hours 6 minutes 1 second Scope In: 8:49:10 AM Scope Out: 8:58:23 AM Endoscopy Department at [facility] - [address] [place] [phone] IMPRESSION: - One 4 mm polyp in the transverse colon, removed with a cold snare. Resected and retrieved. - The examination was otherwise normal on directand retroflexion views. Recommendation: - Discharge patient to home. - Await pathology results. - Repeat colonoscopy in 5 years for surveillance. us Adrienne Giron MD GI~PROCEDURE ORDERABLES Fin al Result * (ABNORMAL) Basic metabolic panel (10/22/2024 9:14 AM EDT) Sodium 138 133 - 145 mmol/L LAB CHEMISTRY METHOD 10/22/2024 5:53 PM EDT [facility] Potassium 3.7 3.5 - 5.5 mmol/L LAB CHEMISTRY METHOD 10/22/2024 5:53 PM [facility] Chloride 103 96 - 110 mmol/L LAB CHEMISTRY METHOD 10/22/2024 5:53 PM [facility] CO2 29 21 - 32 mmol/L LAB CHEMISTRY METHOD 10/22/2024 5:53 PM [facility] Anion Gap 6 3 - 11 LAB CHEMISTRY METHOD 10/22/2024 5:53 PM [facility] Glucose 152(H) 70 - 100 mg/dL LAB CHEMISTRY METHOD 10/22/2024 5:53 PM [facility] BUN 14 5 - 25 mg/dL LAB CHEMISTRY METHOD 10/22/2024 5:53 PM [facility] Creatinine 1.07 0.50 - 1.10 mg/dL LAB CHEMISTRY METHOD 10/22/2024 5:53 PM [facility] eGFR 57(L) >=60 mL/min/1. 73m2 LAB CHEMISTRY METHOD 10/22/2024 5:53 PM [facility] Comment:Calculation based on the Chronic Kidney Disease Epidemiology Collaboration (CKD-EPI) equation refit without adjustment for race. BUN/Creatinine Ratio 13.1 LAB CHEMISTRY METHOD 10/22/2024 5:53 PM [facility] Calcium 8.7 8.5 - 10.5 mg/dL LAB CHEMISTRY METHOD 10/22/2024 5:53 PM [facility] Blood Venous blood specimen / Unknown Venipuncture / Unknown 10/22/2024 9:14 AM EDT 10/22/2024 9:14 AM EDT us Latrice SHIELDS LAB BLOOD ORDERABLES Final Re sult [facility] [address] [place] [address], [place] [phone] * Lipid panel with reflex to direct LDL (07/30/2024 9:36 AM EDT) [facility] Cholesterol 173 0 - 200 mg/dL LAB CHEMISTRY METHOD 07/30/2024 6:13 PM EDT [facility] Triglycerides 70 0 - 150 mg/dL LAB CHEMISTRY METHOD 07/30/2024 6:13 PM EDT [facility] HDL 79 >=40 mg/dL LAB CHEMISTRY METHOD 07/30/2024 6:13 PM EDT [facility] LDL Calculated 80 0 - 100 mg/dL LAB CHEMISTRY METHOD 07/30/2024 6:13 PM EDT [facility] VLDL Cholesterol Harjinder 14 mg/dL LAB CHEMISTRY METHOD 07/30/2024 6:13 PM EDT [facility] Non HDL Chol. (LDL+VLDL) 94 <145 mg/dL LAB CHEMISTRY METHOD 07/30/2024 6:13 PM EDT [facility] Chol/HDL Ratio 2.2 0.0 - 4.4 LAB CHEMISTRY METHOD 07/30/2024 6:13 PM EDT [facility] Blood Venous blood specimen / Unknown Venipuncture / Unknown 07/30/2024 9:36 AM EDT 07/30/2024 9:36 AM EDT Cristopher SHIELDS LAB BLOOD ORDERABLES Fi nal Result [facility] [address] [place] [address], [place] [phone] * Hepatitis C Screening (09/15/2023) [facility] Hepatitis C Screening Abstracted Historical Provider HEALTH MAINTENANCE Final Result * Cervical Cancer Screening: HPV (06/10/2016) [facility] Cervical Cancer Screening: HPV Negative, Abstracted Historical Provider HEALTH MAINTENANCE Final Result from Last 3 Months or Most Recently Relevant to Health Maintenance Insurance [facility] MEDICARE Care Teams Emulsion Coater Relationship Specialty Start Date End Date Jason Vides MD [address] [place] [phone] PCP - General Internal Medicine 11/23/19
== END 2025-04-18 08:10 | disposition home or self-care (01) ==
LOC: HO.HWS 07:49
PROVIDERS: PCP Internal Medicine; Visit Provider Obstetrics & Gynecology
DX: D25.9 Leiomyoma of uterus, unspecified (principal)
CPT/HCPCS: 99213